=== PATIENT | male | born 1940 | race Caucasian/White ===

== ENCOUNTER 2024-07-19 18:36 | Inpatient (IN) | payer MEDICARE, MEDICAID ==
[~2024-07-19] VITALS: Ht 167.6 cm; Wt 80.2 kg
[2024-07-19 19:25] VITALS: PULSE 112; RESP 20; O2SAT 100
[2024-07-19] MEDS: ONDANSETRON HCL 4 MG/2 ML VIAL IV ONE (19:47)
[2024-07-19] MEDS: ACETAMINOPHEN 325 MG TAB PO ONE (19:47)
[2024-07-19] MEDS: VANCOMYCIN 1GM/250ML KIT 200 ML IV ONE (19:48)
[2024-07-19] MEDS: SODIUM CHLORIDE 0.9% 1,000 ML IV ONE ×2 (19:48→20:45)
[2024-07-19 20:01] LABS: Hematocrit 31.2 % (41.0-53.0); Hemoglobin 10.4 g/dL (13.5-17.5); Mean Corpuscular Hgb Conc. 33.4 g/dL (32.0-36.0); Mean Corpuscular Volume 92.7 fL (80.0-100.0); Platelet Count (auto) 372 10^3/uL (140-450); Red Blood Cells 3.36 10^6/uL (4.5-5.90); Red Cell Distribution Width 16.4 % (11.8-14.3); White Blood Cell 15.1 10^3/uL (4.4-10.8)
--- NOTE | 2024-07-19 20:05 | ED.PDOC ---
SOB-HPI HPI Comments 89 year old male came to ER via EMS for shortness of breath. Patient was picked up at home, has history of hypertension, diabetes, CVA, and COPD. Was noted to be short of breath for the past hour. Upon arrival paramedics noted to be saturating at 83% on room air., febrile at 101.6 F, and hypotensive at 85/39 mm Hg. Chief Complaint: Shortness of Breath Time Seen by MD: 20:04 Reviewed notes: Nurses Notes Information Source: Patient Mode of Arrival: EMS Severity: Moderate Timing: Hours Duration: Since onset Context: At Rest PE Risk Factors: None History of: COPD Prehospital treatment: Breathing Tx, Oxygen Modifying Factors: Nothing Associated Signs and Symptoms: Fever, Cough Past Medical History PAST MEDICAL HISTORY: COPD, CVA, DM, HTN Surgical History: Denies all surgeries Family History Family History: Reviewed,noncontributory to illness Social History Smoker: Non-Smoker Alcohol: Denies ETOH Use Drugs: Denies Drug Use Lives In: Home Constitutional: denies: chills, diaphoresis, fatigue, fever, malaise, sweats, weakness, others EENTM: denies: blurred vision, double vision, ear bleeding, ear discharge, ear drainage, ear pain, ear ringing, eye pain, eye redness, hearing loss, mouth pain, mouth swelling, nasal discharge, nose bleeding, nose congestion, nose pain, photophobia, tearing, throat pain, throat swelling, voice changes, others Respiratory: reports: shortness of breath; denies: cough, hemoptysis, orthopnea, SOB with excertion, stridor, wheezing, others Cardiovascular: denies: chest pain, dizzy spells, diaphoresis, Dyspnea on exertion, edema, irregular heart beat, left arm pain, lightheadedness, palpitations, PND, syncope, others Gastrointestinal: denies: abdomen distended, abdominal pain, blood streaked bowels, constipated, diarrhea, dysphagia, difficulty swallowing, hematemesis, melena, nausea, poor appetite, poor fluid intake, rectal bleeding, rectal pain, vomiting, others Genitourinary: denies: burning, dysuria, flank pain, frequency, hematuria, incontinence, penile discharge, penile sore, pain, testicle pain, testicle swelling, urgency, others Neurological: denies: dizziness, fainting, headache, left sided numbness, left sided weakness, numbness, paresthesia, pre-existing deficit, right sided numbness, right sided weakness, seizure, speech problems, tingling, tremors, weakness, others Musculoskeletal: denies: back pain, gout, joint pain, joint swelling, muscle pain, muscle stiffness, neck pain, others Integumetry: denies: bruises, change in color, change in hair/nails, dryness, laceration, lesions, lumps, rash, wounds, others Allergic/Immunocompromised: denies: Difficulty Healing, Frequent Infections, Hives, Itching, others Hematologic/Lymphatic: denies: anemia, blood clots, easy bleeding, easy bruising, swollen glands, others Endocrine: denies: excessive hunger, excessive sweating, excessive thirst, excessive urination, flushing, intolerance to cold, intolerance to heat, unexplained weight gain, unexplained weight loss, others Psychiatric: denies: anxiety, bipolar disorder, depression, hopeless, panic disorder, schizophrenia, sleepless, suicidal, others Physical Exam General Appearance: Mild Distress HEENT: Normal ENT Inspection, Pharynx Normal, TMs Normal Neck: Full Range of Motion, Non-Tender, Normal, Normal Inspection Respiratory: Chest Non-Tender, Decreased Breath Sounds, No Accessory Muscle Use, No Respiratory Distress Cardiovascular: No Edema, No JVD, No Murmur, No Gallop, Normal Peripheral Pulses, Regular Rate/Rhythm Breast Exam: Deferred Gastrointestinal: No Organomegaly, Non Tender, No Pulsatile Mass, Normal Bowel Sounds, Soft Genitalia: Deferred Pelvic: Deferred Rectal: Deferred Extremities: No calf tenderness, Normal capillary refill, Normal inspection, Normal range of motion, Non-tender, No pedal edema Musculoskeletal : Apperance: Normal Neurologic: Alert, tugboat operator II-XII nml as Tested, No Motor Deficits, Normal Affect, Normal Mood, No Sensory Deficits Cerebellar Function: Normal Reflexes: Normal Skin: Dry, Normal Color, Warm Lymphatic: No Adenopathy Was a procedure done? Was a procedure done?: No Differential Dx Differential Diagnosis: Asthma, Bronchitis, CHF, COPD, Myocardial infarction, Pneumonia, Respiratory Distress, URI X-Ray, Labs, Meds, VS Vital Signs Date Time Temp Pulse Resp B/P (MAP) Pulse Ox O2 Delivery O2 Flow Rate FiO2 07/19/24 19:47 101.6 07/19/24 19:25 101.6 112 20 85/39 (54) 100 101.6 07/19/24 18:48 98.8 120 34 122/68 (86) 96 07/19/24 18:40 123 Lab Test 07/19/24 19:46 Range/Units White Blood Count 15.1 H 4.4-10.8 10^3/uL Red Blood Count 3.36 L 4.5-5.90 10^6/uL Hemoglobin 10.4 L 13.5-17.5 g/dL Hematocrit 31.2 L 41.0-53.0 % Mean Corpuscular Volume 92.7 80.0-100.0 fL Mean Corpuscular Hemoglobin 31.0 28.0-32.0 pg Mean Corpuscular Hemoglobin Concent 33.4 32.0-36.0 g/dL Red Cell Distribution Width 16.4 H 11.8-14.3 % Platelet Count 372 140-450 10^3/uL Mean Platelet Volume 8.5 6.9-10.8 fL Neutrophils (%) (Auto) 37.0-80.0 % Lymphocytes (%) (Auto) 10.0-50.0 % Monocytes (%) (Auto) 0.0-12.0 % Basophils (%) (Auto) 0.0-2.0 % Neutrophils # (Auto) 1.6-8.6 10 ^3/uL Lymphocytes # (Auto) 0.4-5.4 10 ^3/uL Monocytes # (Auto) 0-1.3 10 ^3/uL Differential Total Cells Counted Pending Neutrophils % (Manual) Pending Band Neutrophils % (Manual) Pending Lymphocytes % (Manual) Pending Monocytes % (Manual) Pending Eosinophils % (Manual) Pending Basophils % (Manual) Pending Metamyelocytes % (manual) Pending Myelocytes % (Manual) Pending Promyelocytes % (Manual) Pending Blast Cells % (Manual) Pending Reactive Lymphocytes Pending Platelet Estimate Pending Sodium Level 140 136-145 mmol/L Potassium Level 4.2 3.5-5.1 mmol/L Chloride Level 104 98-107 mmol/L Carbon Dioxide Level 30 20-31 mmol/L Anion Gap 6 5-15 Blood Urea Nitrogen 33 H 9-23 mg/dL Creatinine 1.79 H 0.700-1.30 mg/dL Glomerular Filtration Rate Calc 33 >90 mL/min BUN/Creatinine Ratio 18.4 10.0-20.0 Serum Glucose 126 H 74-106 mg/dL Lactic Acid Level Pending Calcium Level 9.2 8.7-10.4 mg/dL Total Bilirubin 0.5 0.2-1.0 mg/dL Aspartate Amino Transferase (AST) 34 13-40 U/L Alanine Aminotransferase (ALT) 30 7-40 U/L Alkaline Phosphatase 114 46-116 U/L Total Protein 6.5 5.7-8.2 g/dL Albumin 3.6 3.2-4.8 g/dL Current Medications Medications (Trade) Dose Ordered Sig/Alo Route Start Time Stop Time Status Last Admin Sodium Chloride 1,000 ml @ 1,000 mls/hr Q1H ONCE IV 07/19/24 19:30 07/19/24 20:29 DC 07/19/24 19:48 Vancomycin HCl 200 ml @ 200 mls/hr ONCE ONCE IV 07/19/24 19:30 07/19/24 20:29 DC 07/19/24 19:48 Ondansetron HCl (Zofran) 4 mg ONCE ONCE IV 07/19/24 19:30 07/19/24 19:31 DC 07/19/24 19:47 Acetaminophen (Tylenol Tablet) 650 mg ONCE ONCE PO 07/19/24 19:30 07/19/24 19:31 DC 07/19/24 19:47 Time of 1ST Reevaluation: 20:34 Reevaluation 1ST: Improved Patient Education/Counseling: Diagnosis, Treatment Family Education/Counseling: No Family Present Departure 1 Departure Time of Disposition: 20:35 (Patient with symptoms concerning for sepsis, pneumonia. We will empirically cover patient with antibiotics fluids and admit patient for further workup. We will give less than 30 cc/kg bolus the patient out of concern for possible volume overload) Impression: Primary Impression: Sepsis Qualified Codes: A41.9 - Sepsis, unspecified organism; R65.21 - Severe sepsis with septic shock; G72.81 - Critical illness myopathy Additional Impression: Pneumonia Qualified Codes: J18.9 - Pneumonia, unspecified organism Disposition: ADMITTED INPATIENT Admit to: Med Surg Condition: Guarded Critical Care Note Critical Care Time?: Yes Critical care comment: Hypotension Authorized and Performed by: Cici Bone MD Total critical care time: Approximately 38 minutes Due to a high probability of clinically significant, life threatening deterioration, the patient required my highest level of preparedness to intervene emergently and I personally spent this critical care time directly and personally managing the patient. This critical care time included obtaining a history; examining the patient; pulse oximetry; ordering and review of studies; arranging urgent treatment with development of a management plan; evaluation of patient's response to treatment; frequent reassessment; and, discussions with other providers. This critical care time was performed to assess and manage the high probability of imminent, life-threatening deterioration that could result in multi-organ failure. It was exclusive of separately billable procedures and treating other patients and teaching time. Please see my other sections and the rest of the note for further information on patient assessment and treatment. Stability Stability form required: No Heart Score Heart Score: Heart Score Response (Comments) Value History Highly Suspicious 2 EKG Repolarization Disturb 1 Age >65 2 Risk Factors >3 or Hx ASHD 2 Troponin Normal limit 0 Total 7 I personally scribed for CICI BONE MD ([email or web address]) on 07/19/24 at 20:04. Electronically submitted by David Kelly ([email or web address]). CICI BONE MD Jul 19, 2024 20:04
--- NOTE | 2024-07-19 20:09 | DVH ---
EXAMINATION: AP portable chest radiograph CLINICAL HISTORY: fever COMPARISON: None FINDINGS: Lead wires overlie the thorax. Diffuse interstitial opacities. Blunting of the left costophrenic angle. No definite pneumothorax. T he cardiomediastinal silhouette appears within normal limits given technique. IMPRESSION: Diffuse interstitial opacities which can be seen with edema as well as atypical/viral infection. Plea se correlate clinically. Possible small left pleural effusion.
[2024-07-19 20:13] LABS: Basophils % (manual) 0 (0.0-2.0); Blast Cells 0; Eosinophils % (manual) 0 (0-7); Metamyelocytes % 0; Myelocytes % 0; Promyelocytes % 0; Reactive Lymphocytes 0
[2024-07-19 20:19] LABS: Alanine Aminotransferase 30 U/L (7-40); Albumin 3.6 g/dL (3.2-4.8); Alkaline Phosphatase 114 U/L (46-116); Anion Gap 6 (5-15); Aspartate Aminotransferase 34 U/L (13-40); BUN/Creatinine Ratio 18.4 (10.0-20.0); Bilirubin, Total 0.5 mg/dL (0.2-1.0); Blood Urea Nitrogen 33 mg/dL (9-23); Calcium 9.2 mg/dL (8.7-10.4); Carbon Dioxide 30 mmol/L (20-31); Chloride 104 mmol/L (98-107); Glucose 126 mg/dL (74-106); Potassium 4.2 mmol/L (3.5-5.1); Sodium 140 mmol/L (136-145); Total Protein 6.5 g/dL (5.7-8.2)
[2024-07-19 20:42] LABS: Lactic Acid w/Reflex 2.3 mmol/L (0.4-2.0)
[2024-07-19] MEDS: CEFEPIME 2GM/50ML NS 50 ML IV ONE (21:11)
[2024-07-19] MEDS ORDERED: ACETAMINOPHEN 325 MG TAB PO PRN (21:45)
[2024-07-19] MEDS ORDERED: NITROGLYCERIN 0.4 MG SL TAB SL PRN (21:45)
[2024-07-19] MEDS ORDERED: MORPHINE SULFATE INJ 2 MG/ml SYRG IV PRN (21:45)
[2024-07-19] MEDS ORDERED: DEXTROSE (50%) 50ML SYRG IV PRN (21:45)
[2024-07-19] MEDS ORDERED: ONDANSETRON HCL 4 MG/2 ML VIAL IV PRN (21:45)
[2024-07-19 21:50] LABS: Anisocytosis Slight; Band Neutrophils % (manual) 26; Large Platelets FEW; Lymphocytes % (manual) 7 (10.0-50.0); Monocytes % (manual) 8 (0-12); Platelet Estimate Adequate
[2024-07-19] MEDS: SODIUM CHLOR 0.9% PF (SALINE LOCK) 10ML VIAL/SYR IV SCH (22:00)
--- NOTE | 2024-07-19 22:02 | DVHHP2 ---
History of Present Illness Reason for Visit: Pneumonia, unspecified organisms History of Present Illness The patient is a 84-year-old male with past medical history of COPD, CVA, hypertension, thyroid disease, HLD, and DM who presented to [facility] ED with complaint of shortness of breaths. As reported, patient was picked up at home with increased difficulty breathing, O2 saturation at 83% on room, and was placed on oxygen en route facility ED. patient was seen and evaluated in the ED, laboratory data shows elevated WBC 15.1, platelets 372, sodium 140, potassium 4.2, BUN 33, creatinine 1.79, glucose 126, lactic acid 2.3, blood pressure 92/43, heart rate 110, temperature 101.6 F trending down to 99.9 F. chest x-ray revealing diffuse interstitial opacities which can be seen with edema as well as atypical/viral infection, possible small left pleural effusion. Patient was started on IV antibiotic regimen vancomycin, please see medication orders section in the computer. On my assessment, patient denies chest pain, no headache, no dizziness, no diaphoresis, currently on oxygen, no nausea, no vomiting, no chills. Patient was admitted evaluation and medical management. Past Medical History COPD, CVA, DM, HTN, thyroid disease, HLD. Past Surgical History Denies all surgeries Family History Reviewed, noncontributory to the management of this case. Past Social History The patient lives at home, denies smoking, alcohol or illicit drugs abuse. Review of Systems Constitutional: Yes: Weakness; No: Fever, Chills, Sweats, Malaise, Other Eyes: No: Pain, Vision change, Conjunctivae inflammation, Eyelid inflammation, Other, Redness ENT: No: Ear pain, Ear discharge, Nose pain, Nose discharge, Nose congestion, Mouth pain, Mouth swelling, Throat pain, Throat swelling, Other Respiratory: Shortness of breath; No: Cough, Dry, SOB with excertion, Wheezing, Hemoptysis, Pleuritic Pain, Sputum, Wheezing, Other Cardiovascular: No: Chest Pain, Palpitations, Orthopnea, Paroxysmal Noc. Dyspne a, Edema, Lt Headedness, Other Gastrointestinal: No: Nausea, Vomiting, Abdominal Pain, Diarrhea, Constipation, Melena, Hematochezia, Other Genitourinary: No Dysuria, No Frequency, No Incontinence, No Hematuria, No Retention, No Other Musculoskeletal: No: other, neck pain, shoulder pain, arm pain, back pain, hand pain, leg pain, foot pain Skin: No: Rash, Lesions, Jaundice, Bruising, Other Neurological: No: Weakness, Numbness, Incoordination, Change in speech, Confusion, Seizures, Other Exam Vital Signs Vital Signs Date Time Temp Pulse Resp B/P (MAP) Pulse Ox O2 Delivery O2 Flow Rate FiO2 07/19/24 20:47 100.3 07/19/24 20:00 110 07/19/24 19:25 20 100 Nasal Cannula* 3 32 07/19/24 19:25 85/39 (54) General Appearance: Alert, Oriented X3, Cooperative, No acute distress HEENT: Atraumatic, PERRLA, EOMI, Mucous membr. moist/pink Respiratory: Clear to auscultation, Normal air movement Cardiovascular: Regular rate, Normal S1, Normal S2, No murmurs Abdominal: Normal bowel sounds, Soft, No tenderness, No hepatospenomegaly, No masses Extremities: No clubbing, No cyanosis, No edema, Normal pulses, No tenderness/swelling Skin: No rashes, No breakdown, No significant lesion Neuro: Normal speech, Normal tone, Sensation intact, Cranial nerves 3-12 NL, Reflexes 2+ Psych/Mental Status: Mental status NL, Mood NL Labs/Xrays Labs Test 07/19/24 21:33 07/19/24 21:30 07/19/24 21:02 07/19/24 19:46 Range/Units POC Glucose 104 70-106 mg/dl White Blood Count 15.1 H 4.4-10.8 10^3/uL Red Blood Count 3.36 L 4.5-5.90 10^6/uL Hemoglobin 10.4 L 13.5-17.5 g/dL Hematocrit 31.2 L 41.0-53.0 % Mean Corpuscular Volume 92.7 80.0-100.0 fL Mean Corpuscular Hemoglobin 31.0 28.0-32.0 pg Mean Corpuscular Hemoglobin Concent 33.4 32.0-36.0 g/dL Red Cell Distribution Width 16.4 H 11.8-14.3 % Platelet Count 372 140-450 10^3/uL Mean Platelet Volume 8.5 6.9-10.8 fL Neutrophils (%) (Auto) 37.0-80.0 % Lymphocytes (%) (Auto) 10.0-50.0 % Monocytes (%) (Auto) 0.0-12.0 % Basophils (%) (Auto) 0.0-2.0 % Neutrophils # (Auto) 1.6-8.6 10 ^3/uL Lymphocytes # (Auto) 0.4-5.4 10 ^3/uL Monocytes # (Auto) 0-1.3 10 ^3/uL Differential Total Cells Counted 99.0 100 Neutrophils % (Manual) 58 37.0-80.0 Band Neutrophils % (Manual) 26 Lymphocytes % (Manual) 7 L 10.0-50.0 Monocytes % (Manual) 8 0-12 Eosinophils % (Manual) 0 0-7 Basophils % (Manual) 0 0.0-2.0 Metamyelocytes % (manual) 0 Myelocytes % (Manual) 0 Promyelocytes % (Manual) 0 Blast Cells % (Manual) 0 Reactive Lymphocytes 0 Platelet Estimate Adequate Large Platelets Few Anisocytosis (manual) Slight Sodium Level 140 136-145 mmol/L Potassium Level 4.2 3.5-5.1 mmol/L Chloride Level 104 98-107 mmol/L Carbon Dioxide Level 30 20-31 mmol/L Anion Gap 6 5-15 Blood Urea Nitrogen 33 H 9-23 mg/dL Creatinine 1.79 H 0.700-1.30 mg/dL Glomerular Filtration Rate Calc 33 >90 mL/min BUN/Creatinine Ratio 18.4 10.0-20.0 Serum Glucose 126 H 74-106 mg/dL Calcium Level 9.2 8.7-10.4 mg/dL Total Bilirubin 0.5 0.2-1.0 mg/dL Aspartate Amino Transferase (AST) 34 13-40 U/L Alanine Aminotransferase (ALT) 30 7-40 U/L Alkaline Phosphatase 114 46-116 U/L Total Protein 6.5 5.7-8.2 g/dL Albumin 3.6 3.2-4.8 g/dL PATIENT: RAYNE SUAREZ ACCT: [id number] UNIT: [id number] : 06/26/1923 LOC: ER ROOM / BED: / AGE / SEX: 89 / M ADM STATUS: REG ER SERVICE 26 ORDERING PHYSICIAN: CICI MONTEZ MD PROCEDURE(s): CXRP - CHEST PORTABLE REASON: fever ORDER NUMBER(s): [id number], ACCESSION NUMBER(s): [id number] EXAMINATION: AP portable chest radiograph CLINICAL HISTORY: fever COMPARISON: None FINDINGS: Lead wires overlie the thorax. Diffuse interstitial opacities. Blunting of the left costophrenic angle. No definite pneumothorax. The cardiomediastinal silhouette appears within normal limits given technique. IMPRESSION: Diffuse interstitial opacities which can be seen with edema as well as atypical/viral infection. Please correlate clinically. Possible small left pleural effusion. Assessment/Plan Assessment/Plan COPD with acute exacerbation Sepsis, unspecified organism Generalized weakness Severe sepsis with septic shock Pneumonia, unspecified organism Plan 1. Admit to telemetry unit 2. Breathing treatment 3. Pain control management 4. IV antibiotic management 5. Management of fluids and electrolytes 6. Consultation for hospitalist 7. Diagnostic test chest x-ray 8. DVT prophylaxis-on SCDs 9. Repeat labs CBC, CMP in a.m. 10. Home medication reviewed and reconciled 11. Continue with current medical management 12. Treatment plan discussed with patient and RN. Patient verbalized understanding. Plan discussed with: Patient, Other (RN) My Orders Orders - ADELINA SINGH DNP Procedure Category Date Status Time Consistent DIET 07/20/24 Transmitted Carb(Ccho)Diabetes Breakfast Levothyroxine Tablet PHA 07/20/24 Transmitted (Synthroid Tablet) 06:00 Doxycycline PHA 07/19/24 Transmitted 100mg/250ml 21:45 Ceftriaxone Ivpb PHA 07/20/24 Transmitted Rocephin 09:00 Atorvastatin (Lipitor) PHA 07/19/24 Transmitted 22:00 Thyroid Stimulating LAB 07/19/24 Transmitted Hormone 21:43 Glucose Blood PHA 07/19/24 Transmitted (Accu-Chek Comfort 22:00 Mild Sliding Scale PHA 07/19/24 Transmitted 22:00 Dextrose 50% Syringe PHA 07/19/24 Transmitted 21:45 Admit ADMIT 07/19/24 Transmitted 21:43 Allergies PAMELA 07/19/24 Transmitted 21:43 Code Status CODE 07/19/24 Transmitted 21:43 Sodium Chloride Lock PHA 07/19/24 Transmitted (Saline Lock Ns) 22:00 Oxygen Per Hour RT 07/19/24 Transmitted 21:43 Hydrocodone-Acet PHA 07/19/24 Transmitted 5/325mg Tab ([place] 21:45 Ondansetron Hcl PHA 07/19/24 Transmitted (Zofran) 21:45 Docusate Sodium [facility] 07/19/24 Transmitted Capsule (Colace 21:45 Fall Risk Precautions [facility] 07/19/[address] 21:43 Complete Blood Count LAB 07/20/24 Verified 04:00 Comprehensive LAB 07/20/24 Verified Metabolic Panel 04:00 Condition: Serious [facility] 07/19/24 Transmitted 21:43 Acetaminophen Tablet [facility] 07/19/24 Transmitted (Tylenol Tablet) 21:45 Sequential [facility] 07/19/24 Transmitted Compression Device Nitroglycerin [facility] 07/19/24 Transmitted Sublingual (Ntrostat 21:45 Morphine Sulfate [facility] 07/19/24 Transmitted Injection 21:45 Notify Of Changes [facility] 07/19/24 Transmitted From Base 21:43 Head Stock Transfer Clerk For [facility] 07/19/24 Transmitted 24 Hours 21:43 Emergency Dysrhythmia [facility] 07/19/24 Transmitted Protocol 21:43 Rhythm Strips Once [facility] 07/19/24 Transmitted Every Shift 21:43 Oxygen By Nasal RT 07/19/24 Transmitted Cannula 21:43 Problem List: (1) COPD with acute exacerbation (2) Pneumonia, unspecified organism (3) Generalized weakness (4) Sepsis, unspecified organism (5) Severe sepsis with septic shock Date of Service: Jul 19, 2024 Billing Provider: ADELINA SINGH DNP Common Visit Codes: 58464-EVHYFOG INP/OBS CARE (HIGH) ADELINA SINGH DNP Jul 19, 2024 22:02
[2024-07-19 22:29] LABS: Rapid Influenza A Negative (Negative); Rapid Influenza B Negative (Negative)
[2024-07-19 22:30] LABS: COVID19 ANTIGEN SOFIA FIA NEGATIVE (NEGATIVE)
[2024-07-20] MEDS: ACCU-CHEK COMFORT CURVE STRIP VI SCH (00:25)
[2024-07-20] MEDS: InsuLIN REG 1unit/0.01ml Soln (100units/ml) SC SCH (00:25)
[2024-07-20] MEDS: ATORVASTATIN 20 MG TAB PO SCH (00:27)
[2024-07-20] MEDS: DOXYCYCLINE 100MG/250ML 250 ML IV SCH (00:33)
[2024-07-20 02:00] VITALS: BP 104/54; PULSE 81; RESP 18; TEMP 99.9; O2SAT 96
[2024-07-20 03:45] VITALS: BP 104/54; PULSE 81; RESP 18; TEMP 99.9; O2SAT 96
[2024-07-20 05:00] VITALS: BP 102/53; PULSE 80; RESP 18; TEMP 99.8; O2SAT 97
[2024-07-20] MEDS: LEVOTHYROXINE SODIUM 100 MCG TAB PO SCH (05:53)
[2024-07-20] MEDS: HYDROcodone-ACET 5/325MG TAB PO PRN (06:23)
[2024-07-20 07:08] LABS: Basophils # (auto) 0 10 ^3/uL (0-0.2); Basophils % (auto) 0.2 % (0.0-2.0); Eosinophils # (auto) 0.3 10 ^3/uL (0-0.8); Eosinophils % (auto) 1.6 % (0.0-7.0); Hematocrit 27.4 % (41.0-53.0); Hemoglobin 8.8 g/dL (13.5-17.5); Lymphocytes # (auto) 1.7 10 ^3/uL (0.4-5.4); Lymphocytes % (auto) 8.3 % (10.0-50.0); Mean Corpuscular Hemoglobin 29.9 pg (28.0-32.0); Mean Corpuscular Hgb Conc. 32.1 g/dL (32.0-36.0); Mean Corpuscular Volume 93.1 fL (80.0-100.0); Monocytes # (auto) 1.1 10 ^3/uL (0-1.3); Monocytes % (auto) 5.2 % (0.0-12.0); Neutrophils # (auto) 17.5 10 ^3/uL (1.6-8.6); Neutrophils % (auto) 84.7 % (37.0-80.0); Platelet Count (auto) 334 10^3/uL (140-450); Red Blood Cells 2.94 10^6/uL (4.5-5.90); Red Cell Distribution Width 16.5 % (11.8-14.3); White Blood Cell 20.6 10^3/uL (4.4-10.8)
[2024-07-20 07:11] LABS: Alanine Aminotransferase 26 U/L (7-40); Albumin 2.9 g/dL (3.2-4.8); Alkaline Phosphatase 87 U/L (46-116); Anion Gap 5 (5-15); Aspartate Aminotransferase 43 U/L (13-40); BUN/Creatinine Ratio 23.7 (10.0-20.0); Bilirubin, Total 0.6 mg/dL (0.2-1.0); Blood Urea Nitrogen 33 mg/dL (9-23); Calcium 8.4 mg/dL (8.7-10.4); Carbon Dioxide 27 mmol/L (20-31); Chloride 109 mmol/L (98-107); Glucose 89 mg/dL (74-106); Potassium 4.6 mmol/L (3.5-5.1); Sodium 141 mmol/L (136-145); Total Protein 5.3 g/dL (5.7-8.2)
[2024-07-20 08:00] VITALS: PULSE 81; PULSE 85; RESP 18; O2SAT 99
[2024-07-20] MEDS ORDERED: cefTRIAXone 1GM/50ML D5W 50 ML IV SCH (09:00)
[2024-07-20] MEDS ORDERED: VANCOMYCIN PER PHARMACY 0 MG IV SCH (09:15)
--- NOTE | 2024-07-20 10:01 | ECG ---
[facility] Test Date: 2024-07-19 Test Time: 18:40:05 Pat Name: RAYNE SUAREZ Department: ED Room: 0233T Gender: M Radio Repairer: LENIN : 1940 Requested By: CICI MONTEZ Order Number: [id number] Reading MD: Gonzalo David Measurements Intervals Berry Rate: 123 P: 77 VT: 169 QRS: -14 QRSD: 80 T: 56 QT: 310 QTc: 444 Interpretive Statements Sinus tachycardia Nonspecific T abnrm, anterolateral leads Baseline wander in lead(s) V3 Electronically Signed On 08-02-2024 11:19:21 PST by Gonzalo David Please click the below link to view image of tracing.
[2024-07-20] MEDS: PIPERACILLIN-TAZOB 3.375GM 100 ML IV ONE (10:46)
--- NOTE | 2024-07-20 14:57 | DVHPN2 ---
Subjective Confused; shortness of breath Reviewed: Care Plan, H&P, Labs, Medications, Previous Orders, Radiology Changes from previous H/P or p: No Changes Objective Vitals Vital Signs Date Time Temp Pulse Resp B/P (MAP) Pulse Ox O2 Delivery O2 Flow Rate FiO2 07/20/24 08:00 81 18 99 Nasal Cannula* 3 32 07/20/24 05:00 99.8 102/53 (69) 99.8 Intake/Output Intake and Output 07/20/24 07:00 Intake Total 2500 ml Balance 2500 ml Intake Oral 0 ml IV Total 2500 ml General Appearance: Other (Confused) HEENT: Atraumatic, Other (No eyelashes) Lungs: Other (Decreased air entry bilateral) Cardiovascular: Regular rate, Normal S1, Normal S2 Abdomen: Normal bowel sounds, Soft, No tenderness Neuro: Other (Left-sided weakness; the patient did not cooperate; unclear if he has dysarthria or not) Skin: Other (Stage II sacral decubitus ulcer; dressed lesions on left upper extremity; multiple bruises) Psych/Mental Status: Other (Confused) Medications Current Medications Medications Dose Ordered Sig/Alo Route Start Time Stop Time Status Last Admin Dose Admin Levothyroxine Sodium 100 mcg QAM@0600 PO 07/20/24 06:00 07/20/24 05:53 100 MCG Atorvastatin Calcium 20 mg HS PO 07/19/24 22:00 07/20/24 00:27 20 MG Diagnostic Test (Pha) 1 strip ACHS 07/19/24 22:00 07/20/24 05:54 1 STRIP Insulin Human Regular ACHS SC 07/19/24 22:00 Dextrose 50 ml UD PRN IV 07/19/24 21:45 Sodium Chloride 10 ml Q8HR IV 07/19/24 22:00 07/20/24 05:54 10 ML Acetaminophen/ Hydrocodone Bitart 1 tab Q4HP PRN PO 07/19/24 21:45 07/20/24 06:23 1 TAB Ondansetron HCl 4 mg Q4HP PRN IV 07/19/24 21:45 Docusate Sodium 100 mg BIDPRN PRN PO 07/19/24 21:45 Acetaminophen 500 mg Q6HP PRN PO 07/19/24 21:45 Nitroglycerin 0.4 mg Q5MINP PRN SL 07/19/24 21:45 Morphine Sulfate 2 mg Q30M PRN IV 07/19/24 21:45 Vancomycin HCl 0 ml @ 0 mls/hr UD IV 07/20/24 09:15 Piperacillin Sod/ Tazobactam Sod 100 ml @ 25 mls/hr Q8H IV 07/20/24 18:00 Vancomycin HCl 200 ml @ 200 mls/hr Q20H IV 07/20/24 15:00 Laboratory Results Laboratory Tests 07/20/24 06:30 Chemistry Test 07/19/24 19:46 07/20/24 06:30 Albumin 3.6 g/dL (3.2-4.8) 2.9 g/dL (3.2-4.8) L Calcium Level 9.2 mg/dL (8.7-10.4) 8.4 mg/dL (8.7-10.4) L Total Protein 6.5 g/dL (5.7-8.2) 5.3 g/dL (5.7-8.2) L LFT Test 07/19/24 19:46 07/20/24 06:30 Alanine Aminotransferase (ALT) 30 U/L (7-40) 26 U/L (7-40) Alkaline Phosphatase 114 U/L (46-116) 87 U/L (46-116) Aspartate Amino Transferase (AST) 34 U/L (13-40) 43 U/L (13-40) H Total Bilirubin 0.5 mg/dL (0.2-1.0) 0.6 mg/dL (0.2-1.0) HgA1c, TSH Test 07/19/24 19:46 Thyroid Stimulating Hormone (TSH) 5.22 uIU/mL (0.55-4.78) H Labs and/or images reviewed: Labs reviewed by me, Image(s) reviewed by me Assessment/Plan Assessment/Plan An 84-year-old male patient; with multiple comorbidities; who presented to the emergency department with altered mental status, and shortness of breath. #Fever and shortness of breath due to suspected aspiration pneumonia versus hospital-acquired pneumonia #Acute hypoxic respiratory failure due to COPD exacerbation secondary to suspected aspiration pneumonia versus hospital-acquired pneumonia; confused #Acute metabolic encephalopathy in the setting of sepsis #Fluid-responsive septic shock due to suspected aspiration pneumonia versus hospital-acquired pneumonia and suspected wound infection #Lactic acidosis due to fluid-responsive septic shock #Leukocytosis due to fluid-responsive septic shock #ELIZABET; most likely vasomotor nephropathy; due to fluid-responsive septic shock #Elevated LFTs due to fluid-responsive septic shock Ordered CT head without contrast Reviewed labs and chest x-ray Ordered urinalysis and urine culture Changed antibiotics to IV vancomycin and IV Zosyn Continue IV fluids Continue oxygen therapy as needed Wound care onboard Blood cultures pending One-to-one sitter Avoid nephrotoxic agents Avoid hepatotoxic agents Continue monitoring #Hypothyroidism Continue levothyroxine Reviewed TSH result Continue monitoring #CVA with left side weakness #Dyslipidemia Started aspirin Continue statin Fall precautions Continue monitoring #Multiple ulcers including sacral decubitus ulcer Wound care onboard Wound culture pending Goals of care discussed for 20 minutes with the patient's nephew (caregiver); full code for now; wants to discuss hospice care; consulted [facility] for possible home hospice 101 minutes of critical care time This medical document was created using an electronic medical record system with computerized dictation system. Although this document has been carefully reviewed, there might still be some phonetic and typographical errors. These areas are purely typographical due to imperfections of the software programs, and do not reflect any compromise in the patient's medical care. Plan discussed with: Other (The patient's nephew (caregiver); nurse) My Orders Orders - FERMÍN PASTOR MD Procedure Category Date Status Time Complete Blood Count LAB 07/21/24 Verified 04:00 Comprehensive LAB 07/21/24 Verified Metabolic Panel 04:00 Vancomycin Per PHA 07/20/24 In Process Pharmacy 09:15 Piperacillin-Tazob PHA 07/20/24 In Process 3.375gm (Zosyn 3.375g 18:00 Vancomycin 1gm/200ml PHA 07/20/24 In Process [facility] 15:00 Vancomycin,Trough LAB 07/22/24 Verified 06:00 Vancomycin Per PAMELA 07/22/24 In Process Pharmacy Protoc 07:00 Creatinine LAB 07/22/24 Verified 06:00 Date of Service: Jul 20, 2024 Billing Provider: FERMÍN PASTOR MD Common Visit Codes: [id number] CARE 30-74 MIN (101 minutes), [id number] CARE-EACH +30MIN Secondary Visit Codes: [id number] CARE PLAN 30 MINUTES (20 minutes) FERMÍN PASTOR MD Jul 20, 2024 14:57
[2024-07-20] MEDS: ASPirin 81 mg TAB PO ONE (15:00)
[2024-07-20] MEDS: SODIUM CHLORIDE 0.9% 1,000 ML IV SCH (15:00)
[2024-07-20] MEDS: VANCOMYCIN 1GM/250ML KIT 200 ML IV SCH (15:00)
--- NOTE | 2024-07-20 15:20 | DVH ---
EXAM: CT HEAD WITHOUT CONTRAST INDICATION: Confusion; history of CVA. Thank You! TECHNIQUE: CT of the head without intravenous contrast. Radiation dose : Head: CT Dose: CTDI volume is 60 mGy. Dose-length product is 1095.78 mGy*cm The dose indicators for CT are the volume computed tomography (CT) dose index (CTDIvol) and the dose length product (DLP), and are measured in units of mGy and mGy-cm, respectively. These indicators are not patient dose, but values generated from the CT scanner acquisition factors. The report includes radiation exposure data for exposures received during this examination. COMPARISON: None FINDINGS: There is no evidence of acute intracranial hemorrhage, extra-axial collection, mass effect, midline s hift, herniation or hydrocephalus. The ventricles, sulci and cisterns are age appropriate. The tan-white differentiation is intact. Focal hypodensity in the right basal ganglia consistent with old infarct. The visualized paranasal sinuses and mastoid air cells are clear. The surrounding soft tissues and osseous structures are unremarkable. IMPRESSION: 1. No acute intracranial abnormality. Old right basal ganglia infarct. Radiation optimization: All CT scans at this facility use at least one of these dose optimization aldair hniques: Automated exposure control mA and/or kV adjustment per patient size (includes targeted exams where dose is matched to clinical indication) or iterative reconstruction. HS:Y
[2024-07-20] MEDS: PIPERACILLIN-TAZOB 3.375GM 100 ML IV SCH (18:00)
[2024-07-20 20:00] VITALS: PULSE 71; PULSE 81; RESP 18; O2SAT 97
[2024-07-20 21:00] VITALS: BP 91/37; PULSE 70; RESP 18; TEMP 99.1; O2SAT 97
[2024-07-21] VITALS (7 sets, daily range): BP systolic 100–127; BP diastolic 49–60; PULSE 64–94; RESP 16–27; TEMP 97.9–98.1; O2SAT 98–100
[2024-07-21 06:18] LABS: Basophils # (auto) 0 10 ^3/uL (0-0.2); Basophils % (auto) 0.2 % (0.0-2.0); Eosinophils # (auto) 0.5 10 ^3/uL (0-0.8); Eosinophils % (auto) 4.4 % (0.0-7.0); Hematocrit 26.6 % (41.0-53.0); Hemoglobin 8.7 g/dL (13.5-17.5); Lymphocytes # (auto) 1.4 10 ^3/uL (0.4-5.4); Lymphocytes % (auto) 11.1 % (10.0-50.0); Mean Corpuscular Hemoglobin 30.4 pg (28.0-32.0); Mean Corpuscular Hgb Conc. 32.7 g/dL (32.0-36.0); Mean Corpuscular Volume 93.1 fL (80.0-100.0); Monocytes # (auto) 0.9 10 ^3/uL (0-1.3); Monocytes % (auto) 6.9 % (0.0-12.0); Neutrophils # (auto) 9.7 10 ^3/uL (1.6-8.6); Neutrophils % (auto) 77.4 % (37.0-80.0); Platelet Count (auto) 293 10^3/uL (140-450); Red Blood Cells 2.85 10^6/uL (4.5-5.90); Red Cell Distribution Width 16.5 % (11.8-14.3); White Blood Cell 12.5 10^3/uL (4.4-10.8)
[2024-07-21] MEDS: DOCUSATE SOD 100 MG CAP PO PRN (06:18)
[2024-07-21 06:31] LABS: Alanine Aminotransferase 22 U/L (7-40); Alkaline Phosphatase 81 U/L (46-116); Anion Gap 7 (5-15); BUN/Creatinine Ratio 26.5 (10.0-20.0); Blood Urea Nitrogen 36 mg/dL (9-23); Calcium 8.4 mg/dL (8.7-10.4); Carbon Dioxide 26 mmol/L (20-31); Chloride 108 mmol/L (98-107); Glucose 75 mg/dL (74-106); Potassium 4.6 mmol/L (3.5-5.1); Sodium 141 mmol/L (136-145)
[2024-07-21 06:32] LABS: Albumin 2.7 g/dL (3.2-4.8); Aspartate Aminotransferase 35 U/L (13-40)
[2024-07-21 06:33] LABS: Bilirubin, Total 0.5 mg/dL (0.2-1.0); Total Protein 4.6 g/dL (5.7-8.2)
[2024-07-21] MEDS: ASPirin 81 mg TAB PO SCH (10:00)
[2024-07-21 10:39] LABS: Urine Bacteria None Seen /hpf (None Seen)
[2024-07-21 10:54] LABS: Urine Blood 3+ /uL (Negative); Urine Clarity Clear (Clear); Urine Color Yellow (Yellow); Urine Protein, UAD 2+ (Negative); Urine Specific Gravity 1.028 (1.001-1.035); Urine Urobilinogen Normal (Negative); Urine WBC 9 /hpf (0 - 3); Urine pH 5.5 (5.0-9.0)
--- NOTE | 2024-07-21 12:53 | DVHPN2 ---
Reviewed: Care Plan, H&P, Labs, Medications, Previous Orders, Radiology Changes from previous H/P or p: No Changes Objective Vitals Vital Signs Date Time Temp Pulse Resp B/P (MAP) Pulse Ox O2 Delivery O2 Flow Rate FiO2 07/21/24 05:44 98.0 74 18 114/54 (74) 99 98.0 07/20/24 20:00 Nasal Cannula* 3 32 Intake/Output Intake and Output 07/21/24 07:00 Intake Total 1250 ml Output Total 640 ml Balance 610 ml Intake Oral 300 ml IV Total 950 ml Output Urine Total 640 ml General Appearance: Other (Confused) HEENT: Atraumatic, Other (No eyelashes) Lungs: Other (Decreased air entry bilateral) Cardiovascular: Regular rate, Normal S1, Normal S2 Abdomen: Normal bowel sounds, Soft, No tenderness Neuro: Other (Left-sided weakness; the patient did not cooperate; unclear if he has dysarthria or not) Skin: Other (Stage II sacral decubitus ulcer; dressed lesions on left upper extremity; multiple bruises) Psych/Mental Status: Other (Confused) Medications Current Medications Medications Dose Ordered Sig/Alo Route Start Time Stop Time Status Last Admin Dose Admin Levothyroxine Sodium 100 mcg QAM@0600 PO 07/20/24 06:00 07/21/24 05:13 100 MCG Atorvastatin Calcium 20 mg HS PO 07/19/24 22:00 07/20/24 21:41 20 MG Diagnostic Test (Pha) 1 strip ACHS 07/19/24 22:00 07/21/24 05:23 1 STRIP Dextrose 50 ml UD PRN IV 07/19/24 21:45 Sodium Chloride 10 ml Q8HR IV 07/19/24 22:00 07/21/24 05:13 10 ML Acetaminophen/ Hydrocodone Bitart 1 tab Q4HP PRN PO 07/19/24 21:45 07/20/24 17:10 1 TAB Ondansetron HCl 4 mg Q4HP PRN IV 07/19/24 21:45 Docusate Sodium 100 mg BIDPRN PRN PO 07/19/24 21:45 07/21/24 06:18 100 MG Acetaminophen 500 mg Q6HP PRN PO 07/19/24 21:45 Nitroglycerin 0.4 mg Q5MINP PRN SL 07/19/24 21:45 Morphine Sulfate 2 mg Q30M PRN IV 07/19/24 21:45 Vancomycin HCl 0 ml @ 0 mls/hr UD IV 07/20/24 09:15 Piperacillin Sod/ Tazobactam Sod 100 ml @ 25 mls/hr Q8H IV 07/20/24 18:00 07/21/24 10:16 25 MLS/HR Vancomycin HCl 200 ml @ 200 mls/hr Q20H IV 07/20/24 15:00 07/20/24 15:00 200 MLS/HR Aspirin 81 mg DAILY PO 07/21/24 10:00 Sodium Chloride 1,000 ml @ 75 mls/hr [id number] IV 07/20/24 15:00 07/20/24 15:00 75 MLS/HR Laboratory Results Laboratory Tests 07/21/24 05:05 Chemistry Test 07/21/24 05:05 Albumin 2.7 g/dL (3.2-4.8) L Calcium Level 8.4 mg/dL (8.7-10.4) L Total Protein 4.6 g/dL (5.7-8.2) L LFT Test 07/21/24 05:05 Alanine Aminotransferase (ALT) 22 U/L (7-40) Alkaline Phosphatase 81 U/L (46-116) Aspartate Amino Transferase (AST) 35 U/L (13-40) Total Bilirubin 0.5 mg/dL (0.2-1.0) Urinalysis Test 07/20/24 10:20 Urine Color Yellow (Yellow) Urine Clarity Clear (Clear) Urine pH 5.5 (5.0-9.0) Urine Specific [place] 1.028 (1.001-1.035) Urine Protein 2+ (Negative) H Urine Ketones Trace (Negative) Urine Blood 3+ /uL (Negative) H Urine Nitrite Negative (Negative) Urine Bilirubin Negative (Negative) Urine Urobilinogen Normal mg/dL (Negative) Urine Leukocyte Esterase Trace /uL (Negative) Urine RBC 51 /hpf (0 - 3) Urine WBC 9 /hpf (0 - 3) Urine Squamous Epithelial Cells Few /hpf (<5) Urine Bacteria None seen /hpf (None Seen) Urine Glucose Normal mg/dL (Normal) Microbiology Microbiology Date/Time Source Procedure Growth Status 07/20/24 02:45 Arm Left Gram Stain Pending Resulted 07/20/24 02:45 Arm Left Wound Culture - Preliminary Resulted 07/19/24 19:46 Blood Blood Culture - Preliminary NO GROWTH AFTER 24 HOURS OF INCUBATION. Resulted Labs and/or images reviewed: Labs reviewed by me, Image(s) reviewed by me Assessment/Plan Assessment/Plan Septic shock secondary to aspiration pneumonia: Continue vancomycin Zosyn Acute hypoxic respiratory failure Possible aspiration pneumonia Acute COPD exacerbation Acute lactic acidosis ELIZABET Recent hospitalization for three months for pneumonia at [place], discharged home four days ago on home health and the patient was brought back to the ER for sepsis Hypothyroidism History of CVA with left hemiplegia CT head negative Hypercholesterolemia Multiple unstageable decubitus ulcers over the sacrum :wound cultures wound consult Hard of hearing Time spent 65 minutes Advanced care planning time 20 minutes Patient is full code Plan discussed with: Patient Date of Service: Jul 21, 2024 Billing Provider: KATLYN GUTIERREZ MD Common Visit Codes: [id number] CARE 30-74 MIN Secondary Visit Codes: [id number] CARE PLAN 30 MINUTES KATLYN GUTIERREZ MD Jul 21, 2024 12:53
[2024-07-22] VITALS (18 sets, daily range): BP systolic 14–163; BP diastolic 63–74; PULSE 63–91; RESP 16–21; TEMP 97.5–98.7; O2SAT 94–100
--- NOTE | 2024-07-22 11:00 | DVHPN2 ---
Reviewed: Care Plan, H&P, Labs, Medications, Previous Orders, Radiology Changes from previous H/P or p: No Changes Objective Vitals Vital Signs Date Time Temp Pulse Resp B/P (MAP) Pulse Ox O2 Delivery O2 Flow Rate FiO2 07/22/24 05:00 97.9 70 20 129/63 (85) 100 97.9 07/21/24 20:00 Nasal Cannula* 3 32 Intake/Output Intake and Output 07/22/24 07:00 Intake Total 1515 ml Output Total 575 ml Balance 940 ml Intake Oral 490 ml IV Total 1025 ml Output Urine Total 575 ml Stool Total 0 ml General Appearance: Other (Confused) HEENT: Atraumatic, Other (No eyelashes) Lungs: Other (Decreased air entry bilateral) Cardiovascular: Regular rate, Normal S1, Normal S2 Abdomen: Normal bowel sounds, Soft, No tenderness Neuro: Other (Left-sided weakness; the patient did not cooperate; unclear if he has dysarthria or not) Skin: Other (Stage II sacral decubitus ulcer; dressed lesions on left upper extremity; multiple bruises) Psych/Mental Status: Other (Confused) Medications Current Medications Medications Dose Ordered Sig/Alo Route Start Time Stop Time Status Last Admin Dose Admin Levothyroxine Sodium 100 mcg QAM@0600 PO 07/20/24 06:00 07/22/24 05:32 100 MCG Atorvastatin Calcium 20 mg HS PO 07/19/24 22:00 07/21/24 20:59 20 MG Diagnostic Test (Pha) 1 strip ACHS 07/19/24 22:00 07/22/24 06:22 1 STRIP Dextrose 50 ml UD PRN IV 07/19/24 21:45 Sodium Chloride 10 ml Q8HR IV 07/19/24 22:00 07/22/24 05:32 10 ML Acetaminophen/ Hydrocodone Bitart 1 tab Q4HP PRN PO 07/19/24 21:45 07/22/24 02:59 1 TAB Ondansetron HCl 4 mg Q4HP PRN IV 07/19/24 21:45 Docusate Sodium 100 mg BIDPRN PRN PO 07/19/24 21:45 07/22/24 09:43 100 MG Acetaminophen 500 mg Q6HP PRN PO 07/19/24 21:45 Nitroglycerin 0.4 mg Q5MINP PRN SL 07/19/24 21:45 Morphine Sulfate 2 mg Q30M PRN IV 07/19/24 21:45 Vancomycin HCl 0 ml @ 0 mls/hr UD IV 07/20/24 09:15 Piperacillin Sod/ Tazobactam Sod 100 ml @ 25 mls/hr Q8H IV 07/20/24 18:00 07/22/24 09:45 25 MLS/HR Vancomycin HCl 200 ml @ 200 mls/hr Q20H IV 07/20/24 15:00 07/21/24 11:00 200 MLS/HR Aspirin 81 mg DAILY PO 07/21/24 10:00 07/22/24 09:43 81 MG Sodium Chloride 1,000 ml @ 75 mls/hr [id number] IV 07/20/24 15:00 07/21/24 17:54 75 MLS/HR Laboratory Results Laboratory Tests 07/21/24 05:05 07/22/24 06:11 Urinalysis Test 07/20/24 10:20 Urine Color Yellow (Yellow) Urine Clarity Clear (Clear) Urine pH 5.5 (5.0-9.0) Urine Specific [place] 1.028 (1.001-1.035) Urine Protein 2+ (Negative) H Urine Ketones Trace (Negative) Urine Blood 3+ /uL (Negative) H Urine Nitrite Negative (Negative) Urine Bilirubin Negative (Negative) Urine Urobilinogen Normal mg/dL (Negative) Urine Leukocyte Esterase Trace /uL (Negative) Urine RBC 51 /hpf (0 - 3) Urine WBC 9 /hpf (0 - 3) Urine Squamous Epithelial Cells Few /hpf (<5) Urine Bacteria None seen /hpf (None Seen) Urine Glucose Normal mg/dL (Normal) Microbiology Microbiology Date/Time Source Procedure Growth Status 07/20/24 02:45 Arm Left Gram Stain - Final Resulted 07/20/24 02:45 Wound Culture - Preliminary Methicillin Resistant S.aureus Resulted 07/19/24 19:46 Blood Blood Culture - Preliminary NO GROWTH AFTER 48 HOURS OF INCUBATION. Resulted Labs and/or images reviewed: Labs reviewed by me, Image(s) reviewed by me Assessment/Plan Assessment/Plan Septic shock secondary to aspiration pneumonia: Continue Zosyn Acute hypoxic respiratory failure Possible aspiration pneumonia Acute COPD exacerbation Acute lactic acidosis ELIZABET Recent hospitalization for three months for pneumonia at [place], discharged home four days ago on home health and the patient was brought back to the ER for sepsis Hypothyroidism History of CVA with left hemiplegia CT head negative Hypercholesterolemia Multiple unstageable decubitus ulcers over the sacrum and open wound left arm, wound cultures showing MRSA sensitive to Zyvox, DC vancomycin start Zyvox Hard of hearing Time spent 65 minutes Advanced care planning time 20 minutes Patient is full code Midline ordered Plan discussed with: Patient Date of Service: Jul 22, 2024 Billing Provider: KATLYN GUTIERREZ MD Common Visit Codes: [id number] CARE 30-74 MIN KATLYN GUTIERREZ MD Jul 22, 2024 11:00
[2024-07-22] MEDS: LACTULOSE 20Gm/30ML SOLN PO ONE (12:06)
[2024-07-22] MEDS: FUROSEMIDE 40 MG/4 ML VIAL IV ONE (12:30)
[2024-07-22] MEDS: IPRATROPIUM BROM 0.5 MG/2.5ML INH SOL NEB SCH (14:18)
[2024-07-22] MEDS: ALBUTEROL SULF 2.5 MG/0.5ML(0.5%) NEB SOLN NEB SCH (14:19)
[2024-07-22] MEDS: LINEZOLID 600MG/300ML 300 ML IV SCH (22:41)
[2024-07-23] VITALS (15 sets, daily range): BP systolic 130–148; BP diastolic 59–80; PULSE 78–90; RESP 14–20; TEMP 97.8–98.1; O2SAT 95–100
--- NOTE | 2024-07-23 10:22 | DVHPN2 ---
Reviewed: Care Plan, H&P, Labs, Medications, Previous Orders, Radiology Changes from previous H/P or p: No Changes Objective Vitals Vital Signs Date Time Temp Pulse Resp B/P (MAP) Pulse Ox O2 Delivery O2 Flow Rate FiO2 07/23/24 09:34 85 16 100 07/23/24 09:28 Nasal Cannula 2.0 07/23/24 09:28 28 07/23/24 07:51 98.1 137/62 (87) 98.1 Intake/Output Intake and Output 07/23/24 07:00 Intake Total 1500 ml Balance 1500 ml Intake Oral 300 ml IV Total 1200 ml # Voids 2 # Bowel Movements 1 General Appearance: Other (Confused) HEENT: Atraumatic, Other (No eyelashes) Lungs: Other (Decreased air entry bilateral) Cardiovascular: Regular rate, Normal S1, Normal S2 Abdomen: Normal bowel sounds, Soft, No tenderness Neuro: Other (Left-sided weakness; the patient did not cooperate; unclear if he has dysarthria or not) Skin: Other (Stage II sacral decubitus ulcer; dressed lesions on left upper extremity; multiple bruises) Psych/Mental Status: Other (Confused) Medications Current Medications Medications Dose Ordered Sig/Alo Route Start Time Stop Time Status Last Admin Dose Admin Levothyroxine Sodium 100 mcg QAM@0600 PO 07/20/24 06:00 07/23/24 05:16 100 MCG Atorvastatin Calcium 20 mg HS PO 07/19/24 22:00 07/22/24 22:40 20 MG Diagnostic Test (Pha) 1 strip ACHS 07/19/24 22:00 07/23/24 06:21 1 STRIP Dextrose 50 ml UD PRN IV 07/19/24 21:45 Sodium Chloride 10 ml Q8HR IV 07/19/24 22:00 07/23/24 05:16 10 ML Acetaminophen/ Hydrocodone Bitart 1 tab Q4HP PRN PO 07/19/24 21:45 07/23/24 10:00 1 TAB Ondansetron HCl 4 mg Q4HP PRN IV 07/19/24 21:45 Docusate Sodium 100 mg BIDPRN PRN PO 07/19/24 21:45 07/23/24 09:15 100 MG Acetaminophen 500 mg Q6HP PRN PO 07/19/24 21:45 Nitroglycerin 0.4 mg Q5MINP PRN SL 07/19/24 21:45 Morphine Sulfate 2 mg Q30M PRN IV 07/19/24 21:45 Piperacillin Sod/ Tazobactam Sod 100 ml @ 25 mls/hr Q8H IV 07/20/24 18:00 07/23/24 09:11 25 MLS/HR Aspirin 81 mg DAILY PO 07/21/24 10:00 07/23/24 09:15 81 MG Sodium Chloride 1,000 ml @ 75 mls/hr [id number] IV 07/20/24 15:00 07/23/24 09:10 75 MLS/HR Linezolid 300 ml @ 150 mls/hr Q12HR IV 07/22/24 22:00 07/23/24 09:11 150 MLS/HR Albuterol 2.5 mg Q4HR NEB 07/22/24 14:00 07/23/24 09:28 2.5 MG Ipratropium [place] 0.5 mg Q4HWA NEB 07/22/24 14:00 07/23/24 09:28 0.5 MG Laboratory Results Laboratory Tests 07/21/24 05:05 07/22/24 06:11 Urinalysis Test 07/20/24 10:20 Urine Color Yellow (Yellow) Urine Clarity Clear (Clear) Urine pH 5.5 (5.0-9.0) Urine Specific [place] 1.028 (1.001-1.035) Urine Protein 2+ (Negative) H Urine Ketones Trace (Negative) Urine Blood 3+ /uL (Negative) H Urine Nitrite Negative (Negative) Urine Bilirubin Negative (Negative) Urine Urobilinogen Normal mg/dL (Negative) Urine Leukocyte Esterase Trace /uL (Negative) Urine RBC 51 /hpf (0 - 3) Urine WBC 9 /hpf (0 - 3) Urine Squamous Epithelial Cells Few /hpf (<5) Urine Bacteria None seen /hpf (None Seen) Urine Glucose Normal mg/dL (Normal) Microbiology Microbiology Date/Time Source Procedure Growth Status 07/21/24 10:20 Voided Urine Urine Culture - Preliminary Resulted 07/20/24 02:45 Arm Left Gram Stain - Final Resulted 07/20/24 02:45 Wound Culture - Preliminary Methicillin Resistant S.aureus Resulted 07/19/24 19:46 Blood Blood Culture - Preliminary NO GROWTH AFTER 72 HOURS OF INCUBATION. Resulted Labs and/or images reviewed: Labs reviewed by me, Image(s) reviewed by me Assessment/Plan Assessment/Plan Septic shock secondary to aspiration pneumonia: Continue Zosyn Acute hypoxic respiratory failure Possible aspiration pneumonia Acute COPD exacerbation Acute lactic acidosis ELIZABET Recent hospitalization for three months for pneumonia at [place], discharged home four days ago on home health and the patient was brought back to the ER for sepsis Hypothyroidism History of CVA with left hemiplegia CT head negative Hypercholesterolemia Multiple unstageable decubitus ulcers over the sacrum and open wound left arm, wound cultures showing MRSA sensitive to Zyvox, DC vancomycin start Zyvox Hard of hearing Patient's brother and JACOB Moreno [phone] at bedside and requesting long term facility placement for rehab. Time spent 55 minutes Advanced care planning time 20 minutes Patient is full code Midline ordered Plan discussed with: Patient My Orders Orders - KATLYN GUTIERREZ MD Procedure Category Date Status Time Linezolid 600mg/300ml PHA 07/22/24 In Process (Zyvox) 22:00 Insert Midline ORDERS 07/22/24 Transmitted 11:01 Albuterol Medneb PHA 07/22/24 In Process (Ventolin Medneb) 14:00 Ipratropium Medneb PHA 07/22/24 In Process (Atrovent Medneb) 14:00 Date of Service: Jul 23, 2024 Billing Provider: KATLYN GUTIERREZ MD Common Visit Codes: [id number] INP/OBS CARE(HIGH) KATLYN GUTIERREZ MD Jul 23, 2024 10:22
--- NOTE | 2024-07-23 10:38 | DVHDS2 ---
Discharge Summary Date of Admission Jul 19, 2024 at 21:43 Date of Discharge: Jul 23, 2024 Admitting Diagnosis Generalized weakness and confusion and altered mental status Wounds: Unstageable decubitus ulcer sacrum Left forearm open wound Labs/Diagnostic Data: Laboratory Results Test 07/23/24 05:40 07/22/24 06:11 07/21/24 05:05 07/20/24 10:20 POC Glucose 102 mg/dl (70-106) Creatinine 1.51 mg/dL (0.700-1.30) Glomerular Filtration Rate Calc 46 mL/min (>90) Vancomycin Level Trough 21.2 ug/mL (5-10) White Blood Count 12.5 10^3/uL (4.4-10.8) Red Blood Count 2.85 10^6/uL (4.5-5.90) Hemoglobin 8.7 g/dL (13.5-17.5) Hematocrit 26.6 % (41.0-53.0) Mean Corpuscular Volume 93.1 fL (80.0-100.0) Mean Corpuscular Hemoglobin 30.4 pg (28.0-32.0) Mean Corpuscular Hemoglobin Concent 32.7 g/dL (32.0-36.0) Red Cell Distribution Width 16.5 % (11.8-14.3) Platelet Count 293 10^3/uL (140-450) Mean Platelet Volume 8.5 fL (6.9-10.8) Neutrophils (%) (Auto) 77.4 % (37.0-80.0) Lymphocytes (%) (Auto) 11.1 % (10.0-50.0) Monocytes (%) (Auto) 6.9 % (0.0-12.0) Eosinophils (%) (Auto) 4.4 % (0.0-7.0) Basophils (%) (Auto) 0.2 % (0.0-2.0) Neutrophils # (Auto) 9.7 10 ^3/uL (1.6-8.6) Lymphocytes # (Auto) 1.4 10 ^3/uL (0.4-5.4) Monocytes # (Auto) 0.9 10 ^3/uL (0-1.3) Eosinophils # (Auto) 0.5 10 ^3/uL (0-0.8) Basophils # (Auto) 0 10 ^3/uL (0-0.2) Nucleated Red Blood Cells 0.0 % Sodium Level 141 mmol/L (136-145) Potassium Level 4.6 mmol/L (3.5-5.1) Chloride Level 108 mmol/L (98-107) Carbon Dioxide Level 26 mmol/L (20-31) Anion Gap 7 (5-15) Blood Urea Nitrogen 36 mg/dL (9-23) BUN/Creatinine Ratio 26.5 (10.0-20.0) Serum Glucose 75 mg/dL (74-106) Calcium Level 8.4 mg/dL (8.7-10.4) Total Bilirubin 0.5 mg/dL (0.2-1.0) Aspartate Amino Transferase (AST) 35 U/L (13-40) Alanine Aminotransferase (ALT) 22 U/L (7-40) Alkaline Phosphatase 81 U/L (46-116) Total Protein 4.6 g/dL (5.7-8.2) Albumin 2.7 g/dL (3.2-4.8) Urine Color Yellow (Yellow) Urine Clarity Clear (Clear) Urine pH 5.5 (5.0-9.0) Urine Specific [place] 1.028 (1.001-1.035) Urine Protein 2+ (Negative) Urine Ketones Trace (Negative) Urine Blood 3+ /uL (Negative) Urine Nitrite Negative (Negative) Urine Bilirubin Negative (Negative) Urine Urobilinogen Normal mg/dL (Negative) Urine Leukocyte Esterase Trace /uL (Negative) Urine RBC 51 /hpf (0 - 3) Urine WBC 9 /hpf (0 - 3) Urine Squamous Epithelial Cells Few /hpf (<5) Urine Bacteria None seen /hpf (None Seen) Urine Glucose Normal mg/dL (Normal) Test 07/19/24 21:33 07/19/24 21:30 07/19/24 19:46 Lactic Acid Level 1.8 mmol/L (0.4-2.0) Influenza Type A Antigen Negative (Negative) Influenza Type B Antigen Negative (Negative) SARS-CoV-2 Antigen (Rapid) Negative (NEGATIVE) Differential Total Cells Counted 99.0 (100) Neutrophils % (Manual) 58 (37.0-80.0) Band Neutrophils % (Manual) 26 Lymphocytes % (Manual) 7 (10.0-50.0) Monocytes % (Manual) 8 (0-12) Eosinophils % (Manual) 0 (0-7) Basophils % (Manual) 0 (0.0-2.0) Metamyelocytes % (manual) 0 Myelocytes % (Manual) 0 Promyelocytes % (Manual) 0 Blast Cells % (Manual) 0 Reactive Lymphocytes 0 Platelet Estimate Adequate Large Platelets Few Anisocytosis (manual) Slight Thyroid Stimulating Hormone (TSH) 5.22 uIU/mL (0.55-4.78) Other Laboratory Tests 07/22/24 06:11 07/21/24 05:05 Brief Hx & Hospital Course: 84-year-old male with multiple medical problems including COPD hypothyroidism history of CVA with left hemiplegia dementia hypothyroidism hypercholesterolemia hard of hearing who was in different hospital different nursing homes in the last one year last admission at [facility] for three months for pneumonia discharged to home on home health five days back brought back by the family for altered mental status and confusion and generalized weakness. Patient was found to be in septic shock secondary to aspiration pneumonia treated with the Zosyn he was given oxygen for acute hypoxic respiratory failure COPD exacerbation was treated appropriately patient has open wound of the left forearm on unstageable decubitus ulcer in the back wound cultures grew MRSA sensitive to Zyvox. Patient's general condition very poor secondary to multiple hospitalizations at different hospitals including [facility]. Patient unable to make decisions of his own because of severe dementia and previous stroke Patient's brother Josh [phone] who has power of software development advisor is at the bedside and is requesting detention facility placement for IV antibiotics and physical therapy. Patient did not receive Zosyn 3.375 g IV q.8 hours for 10 days for aspiration pneumonia and Zyvox 600 mg IV q.12h for one month for decubitus ulcer infection General condition very poor prognosis poor. Consults/Reason for consult None Operations or Procedures CT head Condition at Discharge: Poor Final Diagnosis/Problems List Septic shock secondary to aspiration pneumonia: Continue Zosyn Acute hypoxic respiratory failure Possible aspiration pneumonia Acute COPD exacerbation Acute lactic acidosis ELIZABET Recent hospitalization for three months for pneumonia at [facility], discharged home four days ago on home health and the patient was brought back to the ER for sepsis Hypothyroidism History of CVA with left hemiplegia CT head negative Hypercholesterolemia Multiple unstageable decubitus ulcers over the sacrum and open wound left arm present on admission, wound cultures showing MRSA sensitive to Zyvox, DC vancomycin start Zyvox Hard of hearing Discharge Disposition: Correction Facility Discharge Instruct/Medications Diet: Cardiac 2g Na,low cholest Activity: Bed rest Follow Up/Referral: Follow up with the [facility] Medications: Zyvox 600 mg IV b.i.d. for four weeks for decubitus ulcer infection Zosyn 3.375 g IV q.8 hours for 10 days for aspiration pneumonia See list for other medications 39 (Time Taken for discharge summary 39 minutes) Discharge Statement: "Patient was advised to return to the ER or call 911 if any headaches, dizziness, shortness of breath, chest pain, abdominal pain, bleeding, fevers, or worsening of medical condition. Patient was counseled about treatment plan, medications, possible side effects, patientverbalized understanding. All questions were answered to the best of my ability. This discharge took greater then 30 minutes in planning, reviewing documentation, counseling the patient, and discussing with other team members." ASSESSMENT ASSESSMENT Hospital Course Marginal improvement Assessment Septic shock secondary to aspiration pneumonia: Continue Zosyn Acute hypoxic respiratory failure Possible aspiration pneumonia Acute COPD exacerbation Acute lactic acidosis ELIZABET Recent hospitalization for three months for pneumonia at [facility], discharged home four days ago on home health and the patient was brought back to the ER for sepsis Hypothyroidism History of CVA with left hemiplegia CT head negative Hypercholesterolemia Multiple unstageable decubitus ulcers over the sacrum and open wound left arm present on admission, wound cultures showing MRSA sensitive to Zyvox, DC vancomycin start Zyvox Hard of hearing Date of Service: Jul 23, 2024 Billing Provider: KATLYN GUTIERREZ MD Common Visit Codes: 16940-VOU/OBS DISCH DAY >30min KATLYN GUTIERREZ MD Jul 23, 2024 10:38
== END 2024-07-23 19:41 | DRG 871 ==
LOC: EDBD 18:36 → ER 18:47 → TELE 21:43 → TELE-EAST 07-20 01:55
PROVIDERS: ADMIT Nurse Practitioner Family; ATTEND Family Medicine
PROC: 05HY33Z Insertion of Infusion Device into Upper Vein, Percutaneous Approach (ICD-10-PCS; principal; 2024-07-22)
PROC: B54NZZA Ultrasonography of Left Upper Extremity Veins, Guidance (ICD-10-PCS; 2024-07-22)
DX: A41.9 Sepsis, unspecified organism (principal); G93.41 Metabolic encephalopathy; J69.0 Pneumonitis due to inhalation of food and vomit; R65.21 Severe sepsis with septic shock; J96.01 Acute respiratory failure with hypoxia; J44.1 Chronic obstructive pulmonary disease with (acute) exacerbation; E87.21 Acute metabolic acidosis; I69.354 Hemiplegia and hemiparesis following cerebral infarction affecting left non-dominant side; N17.9 Acute kidney failure, unspecified; Z20.822 Contact with and (suspected) exposure to COVID-19; I10 Essential (primary) hypertension; E11.9 Type 2 diabetes mellitus without complications; E78.00 Pure hypercholesterolemia, unspecified; L89.150 Pressure ulcer of sacral region, unstageable; E03.9 Hypothyroidism, unspecified; B95.62 Methicillin resistant Staphylococcus aureus infection as the cause of diseases classified elsewhere; F03.C0 Unspecified dementia, severe, without behavioral disturbance, psychotic disturbance, mood disturbance, and anxiety
CPT/HCPCS: 36415; 70450; 71045; 80053; 80202; 81001; 82565; 82962; 83605; 84443; 85007; 85025; 85027; 87040; 87077; 87086; 87186; 87205; 87426; 87804; 93005; 94640; 97163; 99291; G0378; J0692; J2405; J2543; J3490

== ENCOUNTER 2024-07-24 19:49 | Inpatient (IN) | payer MEDICARE, MEDICAID ==
[~2024-07-24] VITALS: Ht 172.7 cm; Wt 81.9 kg
--- NOTE | 2024-07-24 19:55 | ED.PDOC ---
SOB-HPI HPI Comments 84-year-old male with PMHx DM, HTN, CVA, COPD, Dementia brought in by EMS from [facility] presents with a chief complaint of SOB x 1 hour. Per EMS, staff at [facility] called due to patient having acute onset of SOB. Patient is normally on 2L of O2 via NC, but was sating at 92%. Patient was given a breathing treatment en route by EMS and placed on 8L via Non-rebreather and is now sating at 99%. Patient denies any chest pain at this time. Time Seen by MD: 19:44 Reviewed notes: Medications, Allergies Information Source: Emergency Med Personnel Mode of Arrival: EMS Severity: Moderate Timing: Hours Duration: Since onset Context: At Rest PE Risk Factors: None Prehospital treatment: Breathing Tx, Oxygen Past Medical History PAST MEDICAL HISTORY: COPD, CVA, Dementia, DM, HTN Surgical History: Denies all surgeries Family History Family History: Reviewed,noncontributory to illness Social History Smoker: Non-Smoker Alcohol: Denies ETOH Use Drugs: Denies Drug Use Lives In: Home Constitutional: denies: chills, diaphoresis, fatigue, fever, malaise, sweats, weakness, others EENTM: denies: blurred vision, double vision, ear bleeding, ear discharge, ear drainage, ear pain, ear ringing, eye pain, eye redness, hearing loss, mouth pain, mouth swelling, nasal discharge, nose bleeding, nose congestion, nose pain, photophobia, tearing, throat pain, throat swelling, voice changes, others Respiratory: reports: SOB at rest, shortness of breath; denies: cough, hemoptysis, orthopnea, SOB with excertion, stridor, wheezing, others Cardiovascular: denies: chest pain, dizzy spells, diaphoresis, Dyspnea on exertion, edema, irregular heart beat, left arm pain, lightheadedness, palpitations, PND, syncope, others Gastrointestinal: denies: abdomen distended, abdominal pain, blood streaked bowels, constipated, diarrhea, dysphagia, difficulty swallowing, hematemesis, melena, nausea, poor appetite, poor fluid intake, rectal bleeding, rectal pain, vomiting, others Genitourinary: denies: burning, dysuria, flank pain, frequency, hematuria, incontinence, penile discharge, penile sore, pain, testicle pain, testicle swelling, urgency, others Neurological: denies: dizziness, fainting, headache, left sided numbness, left sided weakness, numbness, paresthesia, pre-existing deficit, right sided numbness, right sided weakness, seizure, speech problems, tingling, tremors, weakness, others Musculoskeletal: denies: back pain, gout, joint pain, joint swelling, muscle pain, muscle stiffness, neck pain, others Integumetry: denies: bruises, change in color, change in hair/nails, dryness, laceration, lesions, lumps, rash, wounds, others Allergic/Immunocompromised: denies: Difficulty Healing, Frequent Infections, Hi ves, Itching, others Hematologic/Lymphatic: denies: anemia, blood clots, easy bleeding, easy bruising, swollen glands, others Endocrine: denies: excessive hunger, excessive sweating, excessive thirst, excessive urination, flushing, intolerance to cold, intolerance to heat, unexplained weight gain, unexplained weight loss, others Psychiatric: denies: anxiety, bipolar disorder, depression, hopeless, panic disorder, schizophrenia, sleepless, suicidal, others All Other Systems: Reviewed and Negative Physical Exam General Appearance: Moderate Distress, Normal HEENT: Normal ENT Inspection, Pharynx Normal, TMs Normal Neck: Full Range of Motion, Non-Tender, Normal, Normal Inspection Respiratory: Chest Non-Tender, Lungs Clear, No Accessory Muscle Use, No Respiratory Distress, Normal Breath Sounds Cardiovascular: No Edema, No JVD, No Murmur, No Gallop, Normal Peripheral Pulses, Regular Rate/Rhythm Breast Exam: Deferred Gastrointestinal: No Organomegaly, Non Tender, No Pulsatile Mass, Normal Bowel Sounds, Soft Genitalia: Deferred Pelvic: Deferred Rectal: Deferred Extremities: No calf tenderness, Normal capillary refill, Normal inspection, Normal range of motion, Non-tender, No pedal edema Musculoskeletal : Apperance: Normal Neurologic: Alert, network and threat support specialist II-XII nml as Tested, No Motor Deficits, Normal Affect, Normal Mood, No Sensory Deficits Cerebellar Function: Normal Reflexes: Normal Skin: Dry, Normal Color, Warm Lymphatic: No Adenopathy Was a procedure done? Was a procedure done?: No Differential Dx Differential Diagnosis: Anxiety, Asthma, Bronchitis, CHF, COPD, Dysrhythmia, Panic Attack, Pneumonia X-Ray, Labs, Meds, VS Vital Signs Date Time Temp Pulse Resp B/P (MAP) Pulse Ox O2 Delivery O2 Flow Rate FiO2 07/24/24 20:41 96 07/24/24 20:01 98.0 86 22 140/73 (95) 93 07/24/24 19:49 100 Lab Test 07/24/24 21:08 07/24/24 20:23 07/24/24 20:10 Range/Units Troponin I High Sensitivity 8 9 </=54 ng/L Blood Gas Specimen Type Arterial Blood Gas Sample Site Right radial Blood Gas Patient Temperature 37.0 Arterial Blood Date Drawn Arterial Blood pH 7.433 7.350-7.450 Arterial Blood Partial Pressure CO2 25.0 L 35.0-48.0 mmHg Arterial Blood Partial Pressure O2 91.5 83.0-108.0 mmHg Arterial Blood HCO3 16.3 L 21.0-28.0 mmol/L Arterial Blood Oxygen Saturation 97.1 94.0-98.0 % Arterial Blood Base Excess -6.7 L -2.0-3.0 mmol/L Arterial Blood Oxyhemoglobin 96.1 94.0-98.0 % Arterial Blood Carboxyhemoglobin 0.4 L 0.5-1.5 % Arterial Blood Methemoglobin 0.6 0.0-1.5 % Garry Test Yes Blood Gas Total Hemoglobin 9.90 L 13.5-17.5 g/dL Blood Gas Liter Flow 3.00 Blood Gas Modality Nasal cannula FiO2 % 32.0 White Blood Count 10.6 4.4-10.8 10^3/uL Red Blood Count 3.09 L 4.5-5.90 10^6/uL Hemoglobin 9.3 L 13.5-17.5 g/dL Hematocrit 28.1 L 41.0-53.0 % Mean Corpuscular Volume 90.7 80.0-100.0 fL Mean Corpuscular Hemoglobin 30.2 28.0-32.0 pg Mean Corpuscular Hemoglobin Concent 33.3 32.0-36.0 g/dL Red Cell Distribution Width 16.4 H 11.8-14.3 % Platelet Count 314 140-450 10^3/uL Mean Platelet Volume 8.0 6.9-10.8 fL Neutrophils (%) (Auto) 67.6 37.0-80.0 % Lymphocytes (%) (Auto) 18.9 10.0-50.0 % Monocytes (%) (Auto) 9.4 0.0-12.0 % Eosinophils (%) (Auto) 3.8 0.0-7.0 % Basophils (%) (Auto) 0.3 0.0-2.0 % Neutrophils # (Auto) 7.2 1.6-8.6 10 ^3/uL Lymphocytes # (Auto) 2.0 0.4-5.4 10 ^3/uL Monocytes # (Auto) 1.0 0-1.3 10 ^3/uL Eosinophils # (Auto) 0.4 0-0.8 10 ^3/uL Basophils # (Auto) 0 0-0.2 10 ^3/uL Nucleated Red Blood Cells 0.1 % Prothrombin Time 11.5 9.3-11.8 sec Prothrombin Time INR 1.09 0.9-1.15 Activated Partial Thromboplast Time 33.0 24.5-34.5 SEC Sodium Level 138 136-145 mmol/L Potassium Level 4.5 3.5-5.1 mmol/L Chloride Level 108 H 98-107 mmol/L Carbon Dioxide Level 20 20-31 mmol/L Anion Gap 10 5-15 Blood Urea Nitrogen 44 H 9-23 mg/dL Creatinine 4.79 #H 0.700-1.30 mg/dL Glomerular Filtration Rate Calc 11 >90 mL/min BUN/Creatinine Ratio 9.2 L 10.0-20.0 Serum Glucose 104 74-106 mg/dL Calcium Level 8.4 L 8.7-10.4 mg/dL Magnesium Level 2.3 1.6-2.6 mg/dL Total Bilirubin 0.5 0.2-1.0 mg/dL Aspartate Amino Transferase (AST) 26 13-40 U/L Alanine Aminotransferase (ALT) 22 7-40 U/L Alkaline Phosphatase 119 H 46-116 U/L B-Type Natriuretic Peptide 497.64 0-100 pg/mL Total Protein 5.7 5.7-8.2 g/dL Albumin 3.0 L 3.2-4.8 g/dL PATIENT: CLARI SUAREZT: [id number]: [id number] : 1940 LOC: ER ROOM / BED: / AGE / SEX: 84 / M ADM STATUS: REG ER SERVICE 50 ORDERING PHYSICIAN: ESTELLA GOLDBERG MD PROCEDURE(s): CXRP - CHEST PORTABLE REASON: sob ORDER NUMBER(s): [id number], ACCESSION NUMBER(s): [id number] CHEST RADIOGRAPH Indication:sob Technique: Single frontal view of the chest was obtained Comparison: XY CHEST PORTABLE on DOS: 07/19/24 FINDINGS: Lines and Tubes: None Lungs: Hazy opacification of the right lower lung zone with indistinctness of the right hemidiaphragm . left basilar opacification with obscuration of the left hemidiaphragm No pneumothorax. Cardiomediastinal contours: Unremarkable Bones: No acute osseous abnormality. IMPRESSION: Trace bilateral pleural effusions with associated atelectasis. ATED BY: SHERRI MCKEON DO DICTATED DATE/TIME: 07/24/242046 SIGNED BY: SHERRI MCKEON DO SIGNED DATE/TIME: 07/24/242046 First troponin is nine. Second troponin is eight. BNP is 498. EKG shows no signs of ischemia. Chest x-ray shows bilateral pleural effusion. Hemoglobin is 9.3. BUN is 44 and creatinine is 4.8. Chest x-ray showed bilateral pleural effusion. The patient will be admitted to the hospitalist for further evaluation and care. Time of 1ST Reevaluation: 20:14 Reevaluation 1ST: Unchanged Patient Education/Counseling: Diagnosis, Treatment, Prognosis Family Education/Counseling: No Family Present Departure 1 Departure Time of Disposition: 22:44 Impression: Primary Impression: COPD with acute exacerbation Additional Impressions: Dyspnea Qualified Codes: R06.02 - Shortness of breath Chronic kidney disease Qualified Codes: N18.9 - Chronic kidney disease, unspecified Premature atrial contractions Disposition: ADMITTED INPATIENT Admit to: Tele Condition: Guarded e-Prescriptions Unable to Obtain Active Prescriptions or Reported Meds Critical Care Note Critical Care Time?: Yes (35 min-critical care time only) Stability Stability form required: No Heart Score Heart Score: Heart Score Response (Comments) Value History N/A 0 EKG Normal 0 Age >65 2 Risk Factors 1 or 2 risk factors 1 Troponin Normal limit 0 Total 3 I personally scribed for ESTELLA GOLDBERG MD ([email or web address]) on 07/24/24 at 19:55. Electronically submitted by Abhinav De La Garza ([email or web address]). I personally scribed for ESTELLA GOLDBERG MD ([email or web address]) on 07/24/24 at 21:24. Electronically submitted by Abhinav De La Garza ([email or web address]). ESTELLA GOLDBERG MD Jul 24, 2024 19:55
[2024-07-24 20:27] LABS: Base Excess -6.7 mmol/L (-2.0-3.0)
[2024-07-24 20:47] LABS: Basophils # (auto) 0 10 ^3/uL (0-0.2); Basophils % (auto) 0.3 % (0.0-2.0); Eosinophils # (auto) 0.4 10 ^3/uL (0-0.8); Eosinophils % (auto) 3.8 % (0.0-7.0); Hematocrit 28.1 % (41.0-53.0); Hemoglobin 9.3 g/dL (13.5-17.5); Lymphocytes % (auto) 18.9 % (10.0-50.0); Mean Corpuscular Hemoglobin 30.2 pg (28.0-32.0); Mean Corpuscular Hgb Conc. 33.3 g/dL (32.0-36.0); Mean Corpuscular Volume 90.7 fL (80.0-100.0); Monocytes % (auto) 9.4 % (0.0-12.0); Neutrophils # (auto) 7.2 10 ^3/uL (1.6-8.6); Neutrophils % (auto) 67.6 % (37.0-80.0); Nucleated Red Blood Cells % 0.1 %; Platelet Count (auto) 314 10^3/uL (140-450); Red Blood Cells 3.09 10^6/uL (4.5-5.90); Red Cell Distribution Width 16.4 % (11.8-14.3); White Blood Cell 10.6 10^3/uL (4.4-10.8)
--- NOTE | 2024-07-24 20:49 | DVH ---
CHEST RADIOGRAPH Indication:sob Technique: Single frontal view of the chest was obtained Comparison: XY CHEST PORTABLE on DOS: 07/19/24 FINDINGS: Lines and Tubes: None Lungs: Hazy opacification of the right lower lung zone with indistinctness of the right hemidiaphragm . left basilar opacification with obscuration of the left hemidiaphragm No pneumothorax. Cardiomediastinal contours: Unremarkable Bones: No acute osseous abnormality. IMPRESSION: Trace bilateral pleural effusions with associated atelectasis.
[2024-07-24 20:59] LABS: Alanine Aminotransferase 22 U/L (7-40); Alkaline Phosphatase 119 U/L (46-116); Anion Gap 10 (5-15); Aspartate Aminotransferase 26 U/L (13-40); BUN/Creatinine Ratio 9.2 (10.0-20.0); Bilirubin, Total 0.5 mg/dL (0.2-1.0); Blood Urea Nitrogen 44 mg/dL (9-23); Calcium 8.4 mg/dL (8.7-10.4); Carbon Dioxide 20 mmol/L (20-31); Chloride 108 mmol/L (98-107); Glucose 104 mg/dL (74-106); Magnesium 2.3 mg/dL (1.6-2.6); Potassium 4.5 mmol/L (3.5-5.1); Sodium 138 mmol/L (136-145); Total Protein 5.7 g/dL (5.7-8.2)
--- NOTE | 2024-07-24 21:04 | ECG ---
[facility] Test Date: 2024-07-24 Test Time: 20:41:41 Pat Name: RAYNE SUAREZ Department: ED Room: 0231 Gender: M Sap Bw Bi Developer: EVELIA : 1940 Requested By: ESTELLA GOLDBERG Order Number: [id number] Reading MD: Gonzalo David Measurements Intervals [place] Rate: 96 P: 75 TN: 166 QRS: -8 QRSD: 85 T: 59 QT: 329 QTc: 416 Interpretive Statements Sinus tachycardia Atrial premature complexes Borderline low voltage, extremity leads Electronically Signed On 08-02-2024 12:58:55 PST by Gonzalo David Please click the below link to view image of tracing.
[2024-07-24 21:05] LABS: INR 1.09 (0.9-1.15); Prothrombin Time 11.5 sec (9.3-11.8)
[2024-07-24 23:10] VITALS: PULSE 83; RESP 20; O2SAT 97
[2024-07-24] MEDS: methylPREDNISolone SOD SUCC 125 MG/2 ML VL IV ONE (23:13)
[2024-07-24] MEDS: SODIUM CHLORIDE 0.9% 1,000 ML IV ONE (23:13)
[2024-07-24] MEDS: levoFLOXacin 500MG 100 ML IV ONE (23:13)
[2024-07-24] MEDS ORDERED: MORPHINE SULFATE INJ 2 MG/ml SYRG IV PRN (23:15)
[2024-07-24] MEDS ORDERED: HYDROcodone-ACET 5/325MG TAB PO PRN (23:15)
[2024-07-24] MEDS ORDERED: NITROGLYCERIN 0.4 MG SL TAB SL PRN (23:15)
--- NOTE | 2024-07-24 23:34 | DVHHPRES ---
History of Present Illness Resident Creating Document: NAEL QUINTEROS RESIDENT History of Present Illness This is a 84-year-old male with past medical history of type 2 diabetes mellitus, hypothyroidism, hypertension, hyperlipidemia, COPD on 2 L oxygen, CVA with left-sided weakness, dementia presented to the ED by via EMS from [facility] with a chief complaint of shortness of breath for 1 hour prior to this admission. Patient has dementia and hard of hearing but mentioned shortness of patient breath associated with cough and productive sputum for last 1 week. Patient discharged from this hospital 1 days ago with a diagnosis of aspiration pneumonia and ELIZABET. The patient denies chest pain, dizziness, diaphoresis, abdominal pain, nausea, vomiting or any change in bowel and bladder habit. Past Medical History Type 2 diabetes mellitus, hypertension, hyperlipidemia, COPD on 2 L oxygen, CVA with left-sided weakness, dementia Past Surgical History None Family History None Smoke: No ALCOHOL: none Drugs: None Lives: Half-Way Review of Systems Constitutional: No: Fever, Chills, Sweats, Weakness, Malaise, Other Eyes: No: Pain, Vision change, Conjunctivae inflammation, Eyelid inflammation, Other, Redness ENT: No: Ear pain, Ear discharge, Nose pain, Nose discharge, Nose congestion, Mouth pain, Mouth swelling, Throat pain, Throat swelling, Other Respiratory: Cough, Shortness of breath, Sputum Cardiovascular: No: Chest Pain, Palpitations, Orthopnea, Paroxysmal Noc. Dyspnea, Edema, Lt Headedness, Other Gastrointestinal: No: Nausea, Vomiting, Abdominal Pain, Diarrhea, Constipation, Melena, Hematochezia, Other Genitourinary: No Dysuria, No Frequency, No Incontinence, No Hematuria, No Retention, No Other Musculoskeletal: No: other, neck pain, shoulder pain, arm pain, back pain, hand pain, leg pain, foot pain Skin: No: Rash, Lesions, Jaundice, Bruising, Other Neurological: No: Weakness, Numbness, Incoordination, Change in speech, Confusion, Seizures, Other Allergies: Coded Allergies: No Known Drug Allergy (Verified Allergy, Unknown, 07/20/24) Medications Current Medications Medications Dose Ordered Sig/Alo Route Start Time Stop Time Status Last Admin Dose Admin Sodium Chloride 10 ml Q8HR IV 07/25/24 06:00 Acetaminophen/ Hydrocodone Bitart 1 tab Q4HP PRN PO 07/24/24 23:15 Ondansetron HCl 4 mg Q4HP PRN IV 07/24/24 23:15 Nitroglycerin 0.4 mg Q5MINP PRN SL 07/24/24 23:15 Morphine Sulfate 2 mg Q30M PRN IV 07/24/24 23:15 Levofloxacin/ Dextrose 150 ml @ 100 mls/hr DAILY IV 07/25/24 10:00 UNV Methylprednisolone Sodium Succinate 40 mg BID IV 07/25/24 10:00 Exam Vital Signs Vital Signs Date Time Temp Pulse Resp B/P (MAP) Pulse Ox O2 Delivery O2 Flow Rate FiO2 07/24/24 20:41 96 07/24/24 20:01 98.0 22 140/73 (95) 93 Exam Physical examination: General Appearance: Alert, Oriented X3, Cooperative, mild distress with 3L oxygen through nasal canula . HEENT: Atraumatic, PERRLA, EOMI, Mucous membrane moist/pink Respiratory: Bilateral wheezing and rales, more on the rt side. Cardiovascular: Regular rate, Normal S1, Normal S2, No murmurs, no chest wall tenderness Abdominal: Normal bowel sounds, Soft, No tenderness, No hepatospenomegaly, No masses Extremities: No clubbing, No cyanosis, No edema, Normal pulses, No tenderness/swelling Skin: No rashes, No breakdown, No significant lesion Neuro: Normal gait, Normal speech, Strength at 5/5 X4 ext, Normal tone, Sensation intact, Cranial nerves 3-12 NL, Reflexes 2+ Psych/Mental Status: Mental status NL, Mood NL Labs/Xrays Labs Test 07/24/24 21:08 07/24/24 20:23 07/24/24 20:10 Range/Units Troponin I High Sensitivity 8 </=54 ng/L Blood Gas Specimen Type Arterial Blood Gas Sample Site Right radial Blood Gas Patient Temperature 37.0 Arterial Blood Date Drawn [id number] Arterial Blood pH 7.433 7.350-7.450 Arterial Blood Partial Pressure CO2 25.0 L 35.0-48.0 mmHg Arterial Blood Partial Pressure O2 91.5 83.0-108.0 mmHg Arterial Blood HCO3 16.3 L 21.0-28.0 mmol/L Arterial Blood Oxygen Saturation 97.1 94.0-98.0 % Arterial Blood Base Excess -6.7 L -2.0-3.0 mmol/L Arterial Blood Oxyhemoglobin 96.1 94.0-98.0 % Arterial Blood Carboxyhemoglobin 0.4 L 0.5-1.5 % Arterial Blood Methemoglobin 0.6 0.0-1.5 % Garry Test Yes Blood Gas Total Hemoglobin 9.90 L 13.5-17.5 g/dL Blood Gas Liter Flow 3.00 Blood Gas Modality Nasal cannula FiO2 % 32.0 White Blood Count 10.6 4.4-10.8 10^3/uL Red Blood Count 3.09 L 4.5-5.90 10^6/uL Hemoglobin 9.3 L 13.5-17.5 g/dL Hematocrit 28.1 L 41.0-53.0 % Mean Corpuscular Volume 90.7 80.0-100.0 fL Mean Corpuscular Hemoglobin 30.2 28.0-32.0 pg Mean Corpuscular Hemoglobin Concent 33.3 32.0-36.0 g/dL Red Cell Distribution Width 16.4 H 11.8-14.3 % Platelet Count 314 140-450 10^3/uL Mean Platelet Volume 8.0 6.9-10.8 fL Neutrophils (%) (Auto) 67.6 37.0-80.0 % Lymphocytes (%) (Auto) 18.9 10.0-50.0 % Monocytes (%) (Auto) 9.4 0.0-12.0 % Eosinophils (%) (Auto) 3.8 0.0-7.0 % Basophils (%) (Auto) 0.3 0.0-2.0 % Neutrophils # (Auto) 7.2 1.6-8.6 10 ^3/uL Lymphocytes # (Auto) 2.0 0.4-5.4 10 ^3/uL Monocytes # (Auto) 1.0 0-1.3 10 ^3/uL Eosinophils # (Auto) 0.4 0-0.8 10 ^3/uL Basophils # (Auto) 0 0-0.2 10 ^3/uL Nucleated Red Blood Cells 0.1 % Prothrombin Time 11.5 9.3-11.8 sec Prothrombin Time INR 1.09 0.9-1.15 Activated Partial Thromboplast Time 33.0 24.5-34.5 SEC Sodium Level 138 136-145 mmol/L Potassium Level 4.5 3.5-5.1 mmol/L Chloride Level 108 H 98-107 mmol/L Carbon Dioxide Level 20 20-31 mmol/L Anion Gap 10 5-15 Blood Urea Nitrogen 44 H 9-23 mg/dL Creatinine 4.79 #H 0.700-1.30 mg/dL Glomerular Filtration Rate Calc 11 >90 mL/min BUN/Creatinine Ratio 9.2 L 10.0-20.0 Serum Glucose 104 74-106 mg/dL Calcium Level 8.4 L 8.7-10.4 mg/dL Magnesium Level 2.3 1.6-2.6 mg/dL Total Bilirubin 0.5 0.2-1.0 mg/dL Aspartate Amino Transferase (AST) 26 13-40 U/L Alanine Aminotransferase (ALT) 22 7-40 U/L Alkaline Phosphatase 119 H 46-116 U/L B-Type Natriuretic Peptide 497.64 0-100 pg/mL Total Protein 5.7 5.7-8.2 g/dL Albumin 3.0 L 3.2-4.8 g/dL Assessment/Plan Assessment/Plan Assessment and Plan: # Acute on chronic respiratory failure due to possible exacerbation of COPD # Rule out Pulmonary embolism # Possible aspiration pneumonia # questionable exacerbation of CHF - Patient is on 3 L oxygen with saturation 99% - IV methylprednisolone 40 mg b.i.d. - Duoneb 2 neb treatment with albuterol and ipratropium q.4 hours - BNP is elevated - Chest x-ray demonstrated trace bilateral pleural effusion with associated atelectasis - IV levofloxacin 750 mg daily - IV doxycycline 100 mg b.i.d. - Ordered COVID and flu - Ordered D-dimer and Doppler scan of the lower extremity. # ELIZABET on possible CKD secondary to hemodynamically mediated/VMN - Patient was given 1 L IV bolus normal saline - BNP is elevated and ordered echo to rule out heart failure - Ordered urine sodium, urine creatinine and urine osmolality - Avoid nephrotoxic medication - Strict I&O - Consulted nephrology - Monitor BMP # History of dementia with possible aspiration - Failed nursing swallow evaluation - Patient is NPO - Ordered swallow evaluation by speech therapy. # History of CVA with left-sided weakness - Continue aspirin 81 mg daily and atorvastatin 80 mg at HS # Multiple unstageable sacral decubitus ulcer - Last wound culture done on and revealed MRSA - IV doxycycline 100 mg b.i.d. # History of hypothyroidism - Levothyroxine 100 mcg p.o. daily # DVT prophylaxis - Heparin 5000 units sc b.i.d. Goal of care discussed with the patient for more than 20 minutes full code Plan of treatment discussed with Dr. Benton Plan discussed with: Patient, Other My Orders Orders - NAEL QUINTEROS RESIDENT Procedure Category Date Status Time Admit ADMIT 07/24/24 Transmitted 23:09 Code Status CODE 07/24/24 Transmitted 23:09 Sodium Chloride Lock PHA 07/25/24 In Process (Saline Lock Ns) 06:00 Oxygen Per Hour RT 07/24/24 Transmitted 23:09 Hydrocodone-Acet PHA 07/24/24 In Process 5/325mg Tab ([place] 23:15 Ondansetron Hcl PHA 07/24/24 In Process (Zofran) 23:15 Fall Risk Precautions [facility] 07/24/[address] 23:09 Complete Blood Count LAB 07/25/24 Verified 04:00 Comprehensive LAB 07/25/24 Verified Metabolic Panel 04:00 Npo (Nothing By DIET 07/25/24 Transmitted Mouth) Diet Breakfast Pt Request For Service PT 07/24/24 Logged 23:09 Sequential PAMELA 07/24/24 In Process Compression Device Nitroglycerin [facility] 07/24/24 In Process Sublingual (Ntrostat 23:15 Morphine Sulfate PHA 07/24/24 In Process Injection 23:15 Oxygen By Nasal RT 07/24/24 Transmitted Cannula 23:09 Stat Ekg For Chest [facility] 07/24/24 In Process Pain 23:09 Notify Of Changes [facility] 07/24/24 In Process From Base 23:09 Interventional Nurse For [facility] 07/24/24 In Process 24 Hours 23:09 Emergency Dysrhythmia [facility] 07/24/24 In Process Protocol 23:09 Rhythm Strips Once [facility] 07/24/24 In Process Every Shift 23:09 Levofloxacin 750mg PHA 07/25/24 Logged (Levaquin) 10:00 Methylprednisolone PHA 07/25/24 In Process Sod Succ (Solu Medrol 10:00 Echo 2d Mode Cardiac US 07/24/24 Logged DOP 23:18 Lactic Acid W/ Reflex LAB 07/24/24 Logged Order 23:22 Date of Service: Jul 24, 2024 Billing Provider: LOVE BENTON MD Common Visit Codes: 63379-[id number] INP/OBS CARE (HIGH) Secondary Visit Codes: [id number]-[id number] CARE PLAN 30 MINUTES NAEL QUINTEROS Jul 24, 2024 23:34 LOVE BENTON MD Jul 25, 2024 10:40
[2024-07-25] VITALS (13 sets, daily range): BP systolic 104–136; BP diastolic 51–67; PULSE 71–84; RESP 16–20; TEMP 97.6–98; O2SAT 97–100
[2024-07-25] MEDS ORDERED: KETOROLAC TROMETH 30 MG/ML 1ML VIAL IV PRN (01:15)
[2024-07-25] MEDS: MORPHINE SULFATE INJ 2 MG/ml SYRG IV PRN (02:14)
[2024-07-25] MEDS: ONDANSETRON HCL 4 MG/2 ML VIAL IV PRN (02:14)
[2024-07-25] MEDS: IPRATROPIUM BROM 0.5 MG/2.5ML INH SOL NEB SCH (02:29)
[2024-07-25] MEDS: ALBUTEROL SULF 2.5 MG/0.5ML(0.5%) NEB SOLN NEB SCH (02:29)
[2024-07-25 05:22] LABS: Hematocrit 27.5 % (41.0-53.0); Hemoglobin 9.2 g/dL (13.5-17.5); Mean Corpuscular Hemoglobin 30.4 pg (28.0-32.0); Mean Corpuscular Hgb Conc. 33.4 g/dL (32.0-36.0); Platelet Count (auto) 276 10^3/uL (140-450); Red Blood Cells 3.02 10^6/uL (4.5-5.90); Red Cell Distribution Width 16.1 % (11.8-14.3); White Blood Cell 10.1 10^3/uL (4.4-10.8)
[2024-07-25 05:27] LABS: Band Neutrophils % (manual) 0; Basophils % (manual) 0 (0.0-2.0); Blast Cells 0; Eosinophils % (manual) 0 (0-7); Metamyelocytes % 0; Myelocytes % 0; Promyelocytes % 0; Reactive Lymphocytes 0
[2024-07-25 05:41] LABS: Alanine Aminotransferase 25 U/L (7-40); Albumin 2.9 g/dL (3.2-4.8); Alkaline Phosphatase 224 U/L (46-116); Anion Gap 13 (5-15); Aspartate Aminotransferase 27 U/L (13-40); BUN/Creatinine Ratio 9.1 (10.0-20.0); Bilirubin, Total 0.5 mg/dL (0.2-1.0); Blood Urea Nitrogen 47 mg/dL (9-23); Calcium 8.4 mg/dL (8.7-10.4); Carbon Dioxide 17 mmol/L (20-31); Chloride 108 mmol/L (98-107); Glucose 122 mg/dL (74-106); Potassium 5.1 mmol/L (3.5-5.1); Sodium 138 mmol/L (136-145); Total Protein 5.6 g/dL (5.7-8.2)
[2024-07-25] MEDS: SODIUM CHLOR 0.9% PF (SALINE LOCK) 10ML VIAL/SYR IV SCH (06:00)
[2024-07-25] MEDS: DOXYCYCLINE 100MG/250ML 250 ML IV SCH (06:32)
--- NOTE | 2024-07-25 06:48 | ECG ---
[facility] Test Date: 2024-07-24 Test Time: 19:49:18 Pat Name: RAYNE SUAREZ Department: ED Room: 0231 Gender: M Provider Network Manager: EVELIA : 1940 Requested By: ESTELLA GOLDBERG Order Number: [id number] Reading MD: Gonzalo David Measurements Intervals [place] Rate: 100 P: 36 OK: 169 QRS: -20 QRSD: 85 T: 41 QT: 333 QTc: 430 Interpretive Statements Sinus tachycardia Atrial premature complexes Borderline left axis deviation Borderline low voltage, extremity leads Baseline wander in lead(s) V6 Electronically Signed On 08-02-2024 12:58:03 PST by Gonzalo David Please click the below link to view image of tracing.
[2024-07-25 06:54] LABS: Anisocytosis Slight; Lymphocytes % (manual) 1 (10.0-50.0); Monocytes % (manual) 1 (0-12); Platelet Estimate Adequate
--- NOTE | 2024-07-25 08:50 | DVH ---
BILATERAL LOWER EXTREMITY VENOUS DOPPLER CLINICAL HISTORY: To rule out DVT Technique: Duplex Doppler evaluation of the deep venous systems of both lower extremities from the co mmon femoral veins to the popliteal veins including color Doppler and spectral/pulsed waveform analys is was performed. COMPARISON: None FINDINGS: The right and left common femoral, superficial femoral, popliteal, posterior tibial and peroneal vein s appear patent with normal augmentation, phasicity, compressibility and color-flow. IMPRESSION: 1. There is no sonographic evidence for DVT in the lower extremities. HS:Y
[2024-07-25] MEDS: LEVOTHYROXINE SODIUM 100 MCG TAB PO SCH (10:05)
[2024-07-25] MEDS: methylPREDNISolone SOD SUCC 40 MG/ML VL IV SCH (10:05)
[2024-07-25] MEDS: HEPARIN SODIUM (PORCINE) 5000 UNITS/ML 1ML VIAL SC SCH (10:06)
[2024-07-25] MEDS: LACTULOSE 20Gm/30ML SOLN PO ONE (10:06)
--- NOTE | 2024-07-25 10:19 | DVHPN2 ---
Reviewed: Care Plan, H&P, Labs, Medications, Previous Orders, Radiology Changes from previous H/P or p: No Changes Eyes: No Pain, No Vision change, No Conjunctivae inflammation, No Eyelid inflammation, No Other, No Redness ENT: No Ear pain, No Ear discharge, No Nose pain, No Nose discharge, No Nose congestion, No Mouth pain, No Mouth swelling, No Throat pain, No Throat swelling, No Other Cardiovascular: No Chest Pain, No Palpitations, No Orthopnea, No Paroxysmal Noc. Dyspnea, No Edema, No Lt Headedness, No Other Respiratory: Cough, Shortness of breath, Sputum Gastrointestinal: No Nausea, No Vomiting, No Abdominal Pain, No Diarrhea, No Constipation, No Melena, No Hematochezia, No Other Genitourinary: No Dysuria, No Frequency, No Incontinence, No Hematuria, No Retention, No Other Musculoskeletal: No other, No neck pain, No shoulder pain, No arm pain, No back pain, No hand pain, No leg pain, No foot pain Skin: No Rash, No Lesions, No Jaundice, No Bruising, No Other Objective Vitals Vital Signs Date Time Temp Pulse Resp B/P (MAP) Pulse Ox O2 Delivery O2 Flow Rate FiO2 07/25/24 09:37 80 97 Nasal Cannula* 2 28 07/25/24 09:09 16 07/25/24 08:01 130/75 (93) 07/25/24 02:29 98.0 98.0 Intake/Output Intake and Output 07/25/24 07:00 Intake Total 100 ml Balance 100 ml Intake IV Total 100 ml Medications Current Medications Medications Dose Ordered Sig/Alo Route Start Time Stop Time Status Last Admin Dose Admin Sodium Chloride 10 ml Q8HR IV 07/25/24 06:00 Acetaminophen/ Hydrocodone Bitart 1 tab Q4HP PRN PO 07/24/24 23:15 Ondansetron HCl 4 mg Q4HP PRN IV 07/24/24 23:15 07/25/24 02:14 4 MG Nitroglycerin 0.4 mg Q5MINP PRN SL 07/24/24 23:15 Morphine Sulfate 2 mg Q30M PRN IV 07/24/24 23:15 Levofloxacin/ Dextrose 100 ml @ 66.667 mls/ hr EOD IV 07/26/24 10:00 Methylprednisolone Sodium Succinate 40 mg BID IV 07/25/24 10:00 07/25/24 10:05 40 MG Levothyroxine Sodium 100 mcg DAILY PO 07/25/24 10:00 07/25/24 10:05 100 MCG Albuterol 2.5 mg Q4HR NEB 07/25/24 02:00 07/25/24 09:04 2.5 MG Ipratropium [place] 0.5 mg Q4HR NEB 07/25/24 02:00 07/25/24 09:04 0.5 MG Morphine Sulfate 2 mg Q4HPRN PRN IV 07/25/24 02:15 07/25/24 02:14 2 MG Heparin Sodium (Porcine) 5,000 units Q12HR SC 07/25/24 10:00 07/25/24 10:06 5,000 UNITS Doxycycline Hyclate 250 ml @ 125 mls/hr Q12H IV 07/25/24 06:15 07/25/24 06:32 125 MLS/HR Laboratory Results Laboratory Tests 07/25/24 05:00 07/25/24 05:03 Chemistry Test 07/24/24 20:10 07/25/24 05:00 Albumin 3.0 g/dL (3.2-4.8) L 2.9 g/dL (3.2-4.8) L Calcium Level 8.4 mg/dL (8.7-10.4) L 8.4 mg/dL (8.7-10.4) L Magnesium Level 2.3 mg/dL (1.6-2.6) Total Protein 5.7 g/dL (5.7-8.2) 5.6 g/dL (5.7-8.2) L Coagulation Test 07/24/24 20:10 07/25/24 05:03 Prothrombin Time 11.5 sec (9.3-11.8) Prothrombin Time INR 1.09 (0.9-1.15) Activated Partial Thromboplast Time 33.0 SEC (24.5-34.5) D-Dimer, Quantitative 2.57 mg/L FEU (0.0-0.49) H Cardiac Markers Test 07/24/24 20:10 B-Type Natriuretic Peptide 497.64 pg/mL (0-100) LFT Test 07/24/24 20:10 07/25/24 05:00 Alanine Aminotransferase (ALT) 22 U/L (7-40) 25 U/L (7-40) Alkaline Phosphatase 119 U/L (46-116) H 224 U/L (46-116) H Aspartate Amino Transferase (AST) 26 U/L (13-40) 27 U/L (13-40) Total Bilirubin 0.5 mg/dL (0.2-1.0) 0.5 mg/dL (0.2-1.0) HgA1c, TSH Test 07/25/24 05:03 Hemoglobin A1c Pending Blood Gas Results Test 07/24/24 20:23 Arterial Blood pH 7.433 (7.350-7.450) FiO2 % 32.0 Labs and/or images reviewed: Labs reviewed by me, Image(s) reviewed by me Assessment/Plan Assessment/Plan Acute on chronic hypoxic respiratory failure: Oxygen by nasal cannula, ABG normal Acute COPD exacerbation: Albuterol Atrovent Solu-Medrol, consult for pulmonology Dr. Sandy Possible community-acquired aspiration pneumonia: Doxycycline Levaquin Possible CHF exacerbation with BNP in the range of 500: Echocardiogram consult for telephone engineer Dr. Antunez on CKD: BUN creatinine 47 and 5.17, consult for Nephrology Dr. Ireland Dementia History of CVA with left-sided hemiplegia Multiple unstageable decubitus ulcer of the sacrum: Wound consult Hypothyroidism Elevated D-dimer 2.57 DVT ruled out V/Q scan pending Condition guarded Moderate malnutrition History of prolonged hospitalization for three-month at [facility] Time spent 75 minutes Patient is full code Advanced care planning time 20 minutes Patient was discharged from this hospital two days ago to [facility] and was brought back for shortness of breath Plan discussed with: Patient My Orders Orders - KATLYN GUTIERREZ MD Procedure Category Date Status Time Hemoglobin A1c LAB 07/25/24 In Process 09:30 *Consult CONS 07/25/24 Transmitted / 10:07 * Cardiology Consult CONS 07/25/24 Transmitted 10:09 Furosemide Injection PHA 07/25/24 Logged (Lasix Injection) 18:00 Date of Service: Jul 25, 2024 Billing Provider: KATLYN GUTIERREZ MD Common Visit Codes: [id number]-[id number] CARE 30-74 MIN KATLYN GUTIERREZ MD Jul 25, 2024 10:19
[2024-07-25 10:56] LABS: Magnesium 2.3 mg/dL (1.6-2.6)
[2024-07-25 10:57] LABS: Phosphorus 5.7 mg/dL (2.4-5.1)
[2024-07-25 11:00] LABS: Free T3 1.47 pg/mL (2.3-4.2)
--- NOTE | 2024-07-25 11:47 | DVH ---
INDICATION: 84 years old, Male; isaias. TECHNIQUE: Multiple real-time sonographic images of the kidneys and bladder were obtained. COMPARISON: None FINDINGS: The right kidney measures 10 cm in length, which is normal in size. There is normal echogenicity of t he right kidney. No hydronephrosis. The left kidney measures 9 cm in length, which is normal in size. There is normal echogenicity of the left kidney. No hydronephrosis. 1 cm right renal cyst. 7 mm calcification in the right upper pole. No large intraluminal masses are seen in the bladder. IMPRESSION: 1. Normal sonographic appearance of the kidneys. No hydronephrosis. 2. 1 cm right renal cyst. 3. 7 mm calcification in the right upper pole. This likely represents a nonobstructing renal calculus .
--- NOTE | 2024-07-25 13:52 | DVHINCON2 ---
Date of service: Jul 25, 2024 Reason for Consultation ELIZABET History of Present Illness . 84-year-old white male with PMH type 2 diabetes mellitus, hypothyroidism, hypertension, hyperlipidemia, COPD on 2 L oxygen, CVA with left-sided weakness, dementia presented to the ED by via EMS from [facility] with a chief complaint of shortness of breath for 1 hour prior to this admission. Patient was discharged from this hospital approximately 48 hours ago for which during that time he was admitted for sepsis secondary to pneumonia was diagnosed with Multi drug-resistant boots as well was given antibiotics including Zosyn and vancomycin. Approximately 48 hours ago patient's renal function GFR was approximately in CKD three. Now presents to the hospital complaining of shortness of breath and a creatinine of five Based on my exam patient has left-sided facial droop and left-sided weakness. Previous records note a history of respiratory hemiparesis consistent with current exam Past Medical History As above Allergies: Coded Allergies: No Known Drug Allergy (Verified Allergy, Unknown, 07/20/24) Home Meds Unable to Obtain Active Prescriptions or Reported Meds Current Medications Current Medications Medications (Trade) Dose Ordered Sig/Alo Route PRN Reason Start Time Stop Time Status Last Admin Sodium Chloride (Saline Lock Ns) 10 ml Q8HR IV 07/25/24 06:00 Acetaminophen/ Hydrocodone Bitart ([place] 5/325MG Tab) 1 tab Q4HP PRN PO MODERATE PAIN (4-6 PAIN SCALE) 07/24/24 23:15 Ondansetron HCl (Zofran) 4 mg Q4HP PRN IV NAUSEA / VOMITING 07/24/24 23:15 07/25/24 02:14 Nitroglycerin (Ntrostat Sublingual) 0.4 mg Q5MINP PRN SL FOR CHEST PAIN 07/24/24 23:15 Morphine Sulfate 2 mg Q30M PRN IV FOR CHEST PAIN 07/24/24 23:15 Levofloxacin/ Dextrose 100 ml @ 66.667 mls/ hr EOD IV 07/26/24 10:00 Methylprednisolone Sodium Succinate (Solu Medrol) 40 mg BID IV 07/25/24 10:00 07/25/24 10:05 Levothyroxine Sodium (Synthroid Tablet) 100 mcg DAILY PO 07/25/24 10:00 07/25/24 10:05 Albuterol (Ventolin Medneb) 2.5 mg Q4HR NEB 07/25/24 02:00 07/25/24 13:14 Ipratropium [place] (Atrovent Medneb) 0.5 mg Q4HR NEB 07/25/24 02:00 07/25/24 13:14 Ketorolac Tromethamine (Toradol Injection) 30 mg Q6HPRN PRN IV SEVERE PAIN (7-10 PAIN SCALE) 07/25/24 01:15 07/25/24 02:04 DC Morphine Sulfate 2 mg Q4HPRN PRN IV SEVERE PAIN (7-10 PAIN SCALE) 07/25/24 02:15 07/25/24 02:14 Heparin Sodium (Porcine) 5,000 units Q12HR SC 07/25/24 10:00 07/25/24 10:06 Doxycycline Hyclate 250 ml @ 125 mls/hr Q12H IV 07/25/24 06:15 07/25/24 06:32 Furosemide (Lasix Injection) 40 mg BIDD IV 07/25/24 18:00 Family History: Patient reports no known family medical history. Review of Systems Shortness of breath H&P Exam Vital Signs/I&O Vital Sign Date Time Temp Pulse Resp B/P (MAP) Pulse Ox O2 Delivery O2 Flow Rate FiO2 07/25/24 13:15 97 Nasal Cannula 2.0 07/25/24 13:15 28 07/25/24 13:15 71 16 07/25/24 10:00 137/57 (83) 07/25/24 02:29 98.0 98.0 Intake and Output 07/24/24 07/25/24 19:00 07:00 Intake Total 100 ml Balance 100 ml Intake IV Total 100 ml Physical Exam Elderly white male Appears stated age Ill-appearing Slurred speech with left facial droop Contracted left arm Without decrease weakness in the right left lower extremity Abdomen is soft No pitting edema Labs/Diagnostic Data Labs/Diagnostic Data Laboratory Tests Test 07/25/24 07:17 07/25/24 05:03 07/25/24 05:00 07/24/24 21:08 Range/Units POC Glucose 140 H 70-106 mg/dl White Blood Count 10.1 4.4-10.8 10^3/uL Red Blood Count 3.02 L 4.5-5.90 10^6/uL Hemoglobin 9.2 L 13.5-17.5 g/dL Hematocrit 27.5 L 41.0-53.0 % Mean Corpuscular Volume 91.0 80.0-100.0 fL Mean Corpuscular Hemoglobin 30.4 28.0-32.0 pg Mean Corpuscular Hemoglobin Concent 33.4 32.0-36.0 g/dL Red Cell Distribution Width 16.1 H 11.8-14.3 % Platelet Count 276 140-450 10^3/uL Mean Platelet Volume 7.9 6.9-10.8 fL Neutrophils (%) (Auto) 37.0-80.0 % Lymphocytes (%) (Auto) 10.0-50.0 % Monocytes (%) (Auto) 0.0-12.0 % Basophils (%) (Auto) 0.0-2.0 % Neutrophils # (Auto) 1.6-8.6 10 ^3/uL Lymphocytes # (Auto) 0.4-5.4 10 ^3/uL Monocytes # (Auto) 0-1.3 10 ^3/uL Differential Total Cells Counted 100.0 100 Neutrophils % (Manual) 98 H 37.0-80.0 Band Neutrophils % (Manual) 0 Lymphocytes % (Manual) 1 L 10.0-50.0 Monocytes % (Manual) 1 0-12 Eosinophils % (Manual) 0 0-7 Basophils % (Manual) 0 0.0-2.0 Metamyelocytes % (manual) 0 Myelocytes % (Manual) 0 Promyelocytes % (Manual) 0 Blast Cells % (Manual) 0 Reactive Lymphocytes 0 Platelet Estimate Adequate Anisocytosis (manual) Slight D-Dimer, Quantitative 2.57 H 0.0-0.49 mg/L FEU Hemoglobin A1c 5.1 <5.7 % A1C Sodium Level 138 136-145 mmol/L Potassium Level 5.1 3.5-5.1 mmol/L Chloride Level 108 H 98-107 mmol/L Carbon Dioxide Level 17 L 20-31 mmol/L Anion Gap 13 5-15 Blood Urea Nitrogen 47 H 9-23 mg/dL Creatinine 5.17 H 0.700-1.30 mg/dL Glomerular Filtration Rate Calc 10 >90 mL/min BUN/Creatinine Ratio 9.1 L 10.0-20.0 Serum Glucose 122 H 74-106 mg/dL Calcium Level 8.4 L 8.7-10.4 mg/dL Phosphorus Level 5.7 H 2.4-5.1 mg/dL Magnesium Level 2.3 1.6-2.6 mg/dL Total Bilirubin 0.5 0.2-1.0 mg/dL Aspartate Amino Transferase (AST) 27 13-40 U/L Alanine Aminotransferase (ALT) 25 7-40 U/L Alkaline Phosphatase 224 H 46-116 U/L Total Protein 5.6 L 5.7-8.2 g/dL Albumin 2.9 L 3.2-4.8 g/dL Vitamin B12 Level 775 211-911 pg/mL Vitamin D 25-Hydroxy 47.1 30.0-100 ng/mL Free Triiodothyronine (T3) pg/mL 1.47 L 2.3-4.2 pg/mL Random Vancomycin Level 17.5 H 5-10 ug/mL Troponin I High Sensitivity 8 </=54 ng/L Test 07/24/24 20:23 07/24/24 20:10 Range/Units Blood Gas Specimen Type Arterial Blood Gas Sample Site Right radial Blood Gas Patient Temperature 37.0 Arterial Blood Date Drawn Arterial Blood pH 7.433 7.350-7.450 Arterial Blood Partial Pressure CO2 25.0 L 35.0-48.0 mmHg Arterial Blood Partial Pressure O2 91.5 83.0-108.0 mmHg Arterial Blood HCO3 16.3 L 21.0-28.0 mmol/L Arterial Blood Oxygen Saturation 97.1 94.0-98.0 % Arterial Blood Base Excess -6.7 L -2.0-3.0 mmol/L Arterial Blood Oxyhemoglobin 96.1 94.0-98.0 % Arterial Blood Carboxyhemoglobin 0.4 L 0.5-1.5 % Arterial Blood Methemoglobin 0.6 0.0-1.5 % Garry Test Yes Blood Gas Total Hemoglobin 9.90 L 13.5-17.5 g/dL Blood Gas Liter Flow 3.00 Blood Gas Modality Nasal cannula FiO2 % 32.0 White Blood Count 10.6 4.4-10.8 10^3/uL Red Blood Count 3.09 L 4.5-5.90 10^6/uL Hemoglobin 9.3 L 13.5-17.5 g/dL Hematocrit 28.1 L 41.0-53.0 % Mean Corpuscular Volume 90.7 80.0-100.0 fL Mean Corpuscular Hemoglobin 30.2 28.0-32.0 pg Mean Corpuscular Hemoglobin Concent 33.3 32.0-36.0 g/dL Red Cell Distribution Width 16.4 H 11.8-14.3 % Platelet Count 314 140-450 10^3/uL Mean Platelet Volume 8.0 6.9-10.8 fL Neutrophils (%) (Auto) 67.6 37.0-80.0 % Lymphocytes (%) (Auto) 18.9 10.0-50.0 % Monocytes (%) (Auto) 9.4 0.0-12.0 % Eosinophils (%) (Auto) 3.8 0.0-7.0 % Basophils (%) (Auto) 0.3 0.0-2.0 % Neutrophils # (Auto) 7.2 1.6-8.6 10 ^3/uL Lymphocytes # (Auto) 2.0 0.4-5.4 10 ^3/uL Monocytes # (Auto) 1.0 0-1.3 10 ^3/uL Eosinophils # (Auto) 0.4 0-0.8 10 ^3/uL Basophils # (Auto) 0 0-0.2 10 ^3/uL Nucleated Red Blood Cells 0.1 % Prothrombin Time 11.5 9.3-11.8 sec Prothrombin Time INR 1.09 0.9-1.15 Activated Partial Thromboplast Time 33.0 24.5-34.5 SEC Sodium Level 138 136-145 mmol/L Potassium Level 4.5 3.5-5.1 mmol/L Chloride Level 108 H 98-107 mmol/L Carbon Dioxide Level 20 20-31 mmol/L Anion Gap 10 5-15 Blood Urea Nitrogen 44 H 9-23 mg/dL Creatinine 4.79 #H 0.700-1.30 mg/dL Glomerular Filtration Rate Calc 11 >90 mL/min BUN/Creatinine Ratio 9.2 L 10.0-20.0 Serum Glucose 104 74-106 mg/dL Lactic Acid Level 1.0 0.4-2.0 mmol/L Calcium Level 8.4 L 8.7-10.4 mg/dL Magnesium Level 2.3 1.6-2.6 mg/dL Total Bilirubin 0.5 0.2-1.0 mg/dL Aspartate Amino Transferase (AST) 26 13-40 U/L Alanine Aminotransferase (ALT) 22 7-40 U/L Alkaline Phosphatase 119 H 46-116 U/L Troponin I High Sensitivity 9 </=54 ng/L B-Type Natriuretic Peptide 497.64 0-100 pg/mL Total Protein 5.7 5.7-8.2 g/dL Albumin 3.0 L 3.2-4.8 g/dL Assessment Acute kidney injury multifactorial can not exclude direct nephrotoxicity Chronic kidney disease stage 3 Diabetes Stroke with left residual weakness /deficit Hypertension Pleural effusions Sepsis with recent treatment of pneumonia and decubitus ulcers Recommend obtaining vancomycin random level Avoid further nephrotoxic drugs Avoid contrast studies Obtain echocardiogram to obtain baseline function Ultrasound of the kidney shows nonobstructing kidney stone Recommended to strict Is&Os P.o. nutrition Plan discussed with: Patient ELEAZAR DAVIS MD Jul 25, 2024 13:52
--- NOTE | 2024-07-25 15:15 | DVHSR ---
APPROVED REPORT EXAM: LIMITED Two-dimensional and M-mode echocardiogram with Doppler and color Doppler. Blood Pressure: 127/78 mmHg INDICATION Shortness of breath RISK FACTORS Height: 5' 8", Weight: 175 DIMENSIONS LVDd4.8 (3.8-5.7cm)LA (2D)3.9 (1.9-4.0cm)Aortic Root3.0 (2.0-3.7cm) LVDs3.7 (2.5-4.0cm)LA (MM) (1.9-4.0cm)Aortic Cusp Exc1.7 (1.5-2.0cm) EF (%) 55.0 (55-70%)Rt. Atrium2.8 (1.9-4.0cm)Asc. Aorta cm IVSd0.8 (0.7-1.1cm)RV (D) (1.8-2.4cm) PWd0.8 (0.7-1.1cm) Mitral Valve MitralMitral Stenosis E wave1.00m/sMV Mean GR.mmHg A wave1.20m/sMV Peak GR.mmHg E/A ratio0.82D MVAcm2 Aortic Valve Aortic ValveAortic Stenosis V11.10m/Sonia Mean GR.5mmHg V21.40m/Sonia Peak GR.9mmHg LVOT Diameter2.3 (1.8-2.4cm)Doppler AVA3.26cm2 Pulmonic Valve V20.90m/s Other Information Quality : Technically LimitedRhythm : Technically limited study due to patient stated he was done being scanned and wanted the test stoppe d. Conclusion Normal left ventricular size and dimension. Normal left ventricular systolic function estimated ejec tion fraction 55%. There is a grade 1 diastolic dysfunction. Normal right ventricular size and dimension. Normal right ventricular systolic function. Normal biatrial size and dimension. Normal aortic valve structure and function. Normal mitral valve structure and function. Normal tricuspid valve structure and function. The pulmonary valve is grossly normal. No pericardial effusion.
--- NOTE | 2024-07-25 17:56 | DVHINCON2 ---
Date Seen: Jul 25, [address] Diaz Reason for Consultation CHF exacerbation History of Present Illness Junior Kim is a 84-year-old male patient who presents to ED via EMS from nursing facility ([facility]) with chief complaint of progressive dyspnea days before his admission. Patient is a poor historian due to dementia, history of CVA and also is hard of hearing. Obtained review of system from EMR. Patient was recently discharged from hospital (one day prior to his new visit) with recent diagnosis of aspiration pneumonia and ELIZABET. Denies palpitation, syncope, chest pain, nausea, vomiting, diarrhea, constipation, bleeding, dysuria, recent travel, sick contacts and new motor or sensory deficits. Past medical history: Hypertension, dyslipidemia, diabetes, COPD with home oxygen requirement (2 liters/minute) history of CVA symptomatic by left-sided hemiplegia, dementia, hypothyroidism Surgical history: Denies Family history: Noncontributory Social history: Lives in group home. Denies current tobacco, alcohol and other drug abuse. Allergies: Denies Home medication: Not available in EMR Patient seen and examined at bedside. Patient currently has no complaints, except for difficulty hearing. Currently on nasal cannula 2 L/minute Past Medical History Per HPI Past Surgical History Per HPI Family History: Patient reports no known family medical history. Family History Per HPI Social History Per HPI Allergies: Coded Allergies: No Known Drug Allergy (Verified Allergy, Unknown, 07/20/24) Home Meds Unable to Obtain Active Prescriptions or Reported Meds Current Medications Current Medications Medications (Trade) Dose Ordered Sig/Alo Route PRN Reason Start Time Stop Time Status Last Admin Sodium Chloride (Saline Lock Ns) 10 ml Q8HR IV 07/25/24 06:00 07/25/24 14:00 Acetaminophen/ Hydrocodone Bitart ([place] 5/325MG Tab) 1 tab Q4HP PRN PO MODERATE PAIN (4-6 PAIN SCALE) 07/24/24 23:15 Ondansetron HCl (Zofran) 4 mg Q4HP PRN IV NAUSEA / VOMITING 07/24/24 23:15 07/25/24 02:14 Nitroglycerin (Ntrostat Sublingual) 0.4 mg Q5MINP PRN SL FOR CHEST PAIN 07/24/24 23:15 Morphine Sulfate 2 mg Q30M PRN IV FOR CHEST PAIN 07/24/24 23:15 Levofloxacin/ Dextrose 100 ml @ 66.667 mls/ hr EOD IV 07/26/24 10:00 Methylprednisolone Sodium Succinate (Solu Medrol) 40 mg BID IV 07/25/24 10:00 07/25/24 10:05 Levothyroxine Sodium (Synthroid Tablet) 100 mcg DAILY PO 07/25/24 10:00 07/25/24 10:05 Albuterol (Ventolin Medneb) 2.5 mg Q4HR NEB 07/25/24 02:00 07/25/24 13:14 Ipratropium [place] (Atrovent Medneb) 0.5 mg Q4HR NEB 07/25/24 02:00 07/25/24 13:14 Ketorolac Tromethamine (Toradol Injection) 30 mg Q6HPRN PRN IV SEVERE PAIN (7-10 PAIN SCALE) 07/25/24 01:15 07/25/24 02:04 DC Morphine Sulfate 2 mg Q4HPRN PRN IV SEVERE PAIN (7-10 PAIN SCALE) 07/25/24 02:15 07/25/24 02:14 Heparin Sodium (Porcine) 5,000 units Q12HR SC 07/25/24 10:00 07/25/24 10:06 Doxycycline Hyclate 250 ml @ 125 mls/hr Q12H IV 07/25/24 06:15 07/25/24 06:32 Furosemide (Lasix Injection) 40 mg BIDD IV 07/25/24 18:00 Review of Systems Per HPI Vital Signs Vital Signs Date Time Temp Pulse Resp B/P (MAP) Pulse Ox O2 Delivery O2 Flow Rate FiO2 07/25/24 13:15 97 Nasal Cannula 2.0 07/25/24 13:15 28 07/25/24 13:15 71 16 07/25/24 10:00 137/57 (83) 07/25/24 02:29 98.0 98.0 Physical Exam Patient lying in bed, in no acute distress General: Lucid, afebrile, mucosae are moist, gargling sounds in oral cavity Cardiovascular: Normal S1 and S2. No murmurs, gallops or rubs Respiratory: Regular ventilation mechanics. Diffuse bilateral rhonchus. On nasal cannula 2 liters/minute Abdomen: Soft, nontender, no organomegaly, normal bowel sounds MSK/skin: Mobilizes 4 limbs. Skin is dry and warm. Sacral decubitus ulcer stage II-III Neurological: Oriented in 3 spheres. Bronchial crural left-sided weakness no other motor no sensitive deficits. Pupils are isocoric and reactive Labs/Diagnostic Data Labs Test 07/25/24 07:17 07/25/24 05:03 07/25/24 05:00 07/24/24 21:08 Range/Units POC Glucose 140 H 70-106 mg/dl White Blood Count 10.1 4.4-10.8 10^3/uL Red Blood Count 3.02 L 4.5-5.90 10^6/uL Hemoglobin 9.2 L 13.5-17.5 g/dL Hematocrit 27.5 L 41.0-53.0 % Mean Corpuscular Volume 91.0 80.0-100.0 fL Mean Corpuscular Hemoglobin 30.4 28.0-32.0 pg Mean Corpuscular Hemoglobin Concent 33.4 32.0-36.0 g/dL Red Cell Distribution Width 16.1 H 11.8-14.3 % Platelet Count 276 140-450 10^3/uL Mean Platelet Volume 7.9 6.9-10.8 fL Neutrophils (%) (Auto) 37.0-80.0 % Lymphocytes (%) (Auto) 10.0-50.0 % Monocytes (%) (Auto) 0.0-12.0 % Basophils (%) (Auto) 0.0-2.0 % Neutrophils # (Auto) 1.6-8.6 10 ^3/uL Lymphocytes # (Auto) 0.4-5.4 10 ^3/uL Monocytes # (Auto) 0-1.3 10 ^3/uL Differential Total Cells Counted 100.0 100 Neutrophils % (Manual) 98 H 37.0-80.0 Band Neutrophils % (Manual) 0 Lymphocytes % (Manual) 1 L 10.0-50.0 Monocytes % (Manual) 1 0-12 Eosinophils % (Manual) 0 0-7 Basophils % (Manual) 0 0.0-2.0 Metamyelocytes % (manual) 0 Myelocytes % (Manual) 0 Promyelocytes % (Manual) 0 Blast Cells % (Manual) 0 Reactive Lymphocytes 0 Platelet Estimate Adequate Anisocytosis (manual) Slight D-Dimer, Quantitative 2.57 H 0.0-0.49 mg/L FEU Hemoglobin A1c 5.1 <5.7 % A1C Sodium Level 138 136-145 mmol/L Potassium Level 5.1 3.5-5.1 mmol/L Chloride Level 108 H 98-107 mmol/L Carbon Dioxide Level 17 L 20-31 mmol/L Anion Gap 13 5-15 Blood Urea Nitrogen 47 H 9-23 mg/dL Creatinine 5.17 H 0.700-1.30 mg/dL Glomerular Filtration Rate Calc 10 >90 mL/min BUN/Creatinine Ratio 9.1 L 10.0-20.0 Serum Glucose 122 H 74-106 mg/dL Calcium Level 8.4 L 8.7-10.4 mg/dL Phosphorus Level 5.7 H 2.4-5.1 mg/dL Magnesium Level 2.3 1.6-2.6 mg/dL Total Bilirubin 0.5 0.2-1.0 mg/dL Aspartate Amino Transferase (AST) 27 13-40 U/L Alanine Aminotransferase (ALT) 25 7-40 U/L Alkaline Phosphatase 224 H 46-116 U/L Total Protein 5.6 L 5.7-8.2 g/dL Albumin 2.9 L 3.2-4.8 g/dL Vitamin B12 Level 775 211-911 pg/mL Vitamin D 25-Hydroxy 47.1 30.0-100 ng/mL Free Triiodothyronine (T3) pg/mL 1.47 L 2.3-4.2 pg/mL Random Vancomycin Level 17.5 H 5-10 ug/mL Troponin I High Sensitivity 8 </=54 ng/L Test 07/24/24 20:23 07/24/24 20:10 Range/Units Blood Gas Specimen Type Arterial Blood Gas Sample Site Right radial Blood Gas Patient Temperature 37.0 Arterial Blood Date Drawn Arterial Blood pH 7.433 7.350-7.450 Arterial Blood Partial Pressure CO2 25.0 L 35.0-48.0 mmHg Arterial Blood Partial Pressure O2 91.5 83.0-108.0 mmHg Arterial Blood HCO3 16.3 L 21.0-28.0 mmol/L Arterial Blood Oxygen Saturation 97.1 94.0-98.0 % Arterial Blood Base Excess -6.7 L -2.0-3.0 mmol/L Arterial Blood Oxyhemoglobin 96.1 94.0-98.0 % Arterial Blood Carboxyhemoglobin 0.4 L 0.5-1.5 % Arterial Blood Methemoglobin 0.6 0.0-1.5 % Garry Test Yes Blood Gas Total Hemoglobin 9.90 L 13.5-17.5 g/dL Blood Gas Liter Flow 3.00 Blood Gas Modality Nasal cannula FiO2 % 32.0 Eosinophils (%) (Auto) 3.8 0.0-7.0 % Eosinophils # (Auto) 0.4 0-0.8 10 ^3/uL Basophils # (Auto) 0 0-0.2 10 ^3/uL Nucleated Red Blood Cells 0.1 % Prothrombin Time 11.5 9.3-11.8 sec Prothrombin Time INR 1.09 0.9-1.15 Activated Partial Thromboplast Time 33.0 24.5-34.5 SEC Lactic Acid Level 1.0 0.4-2.0 mmol/L B-Type Natriuretic Peptide 497.64 0-100 pg/mL Assessment Acute respiratory failure Probable aspiration pneumonia COPD exacerbation Bilateral pleural effusion Probable cardiorenal syndrome type III Hypothyroidism History of CVA Dementia Ruled out bilateral lower limb DVT Sacral decubitus ulcer present on admission Plan/Recommendation EKG shows sinus rhythm with multiple PACs, no ST alteration. Troponin negative, BNP 497. Creatinine level 5.17 (in previous admission was 1.79) While completing kidney ultrasound, incidentally observed bilateral pleural effusion. We will evaluate need for thoracocentesis. Ordered echocardiogram to evaluate LVEF Patient is currently on IV diuretics (furosemide 40 mg IV b.i.d.). Optimize loading conditions Nephrology evaluation appreciated V/Q scan pending to rule out PE Discussed plan with Dr. Pacheco, patient and nurses: Patient has multiple causes of dyspnea, at this point we recommend echocardiogram. Chest ultrasound was ordered for eventual thoracocentesis, nephrology evaluation is appreciated, treatment for aspiration pneumonia and probable COPD exacerbation per hospitalist. Patient has poor prognosis, suggest discussion of goals of care with family (patient currently lives in nursing facility). Plan discussed with: Patient, Other (Nurses) Date of Service: Jul 25, 2024 Billing Provider: PAUL PACHECO MD Cardiology Common Codes: 29221-FQGIHXC INP/OBS CARE (High), [id number] CARE 30-74 MIN FLAVIA BECKER RESIDENT Jul 25, 2024 17:56
[2024-07-25] MEDS: FUROSEMIDE 40 MG/4 ML VIAL IV SCH (18:53)
--- NOTE | 2024-07-25 19:22 | DVHINCON2 ---
Date of service: Jul 25, [address] Zay Diaz Reason for Consultation 84-year-old man history of type 2 diabetes mellitus, hypothyroidism, hypertension, hyperlipidemia, COPD, chronic hypoxic respiratory failure, dependence on supplemental oxygen, CVA with left-sided weakness, dementia who presented from [facility] with a chief complaint of shortness of breath. He notes he productive cough and phlegm production for the last week. Pulmonary consultation is called for acute exacerbation of COPD and acute on chronic hypoxic respiratory failure. Review of systems: 14 point review of systems is negative unless otherwise noted above. Past medical history: type 2 diabetes mellitus, hypothyroidism, hypertension, hyperlipidemia, COPD, chronic hypoxic respiratory failure, dependence on suppl emental oxygen, CVA with left-sided weakness, dementia Past surgical history: None mentioned in prior surgeries. Medications: Reviewed Allergies: No known drug allergies. Family history: No family history of premature CAD. No family history of lung disease Social history: Nonsmoker. No alcohol or illicit drug use. Lives in care home. Family History: Patient reports no known family medical history. Allergies: Coded Allergies: No Known Drug Allergy (Verified Allergy, Unknown, 07/20/24) Home Meds Unable to Obtain Active Prescriptions or Reported Meds Current Medications Current Medications Medications (Trade) Dose Ordered Sig/Alo Route PRN Reason Start Time Stop Time Status Last Admin Sodium Chloride (Saline Lock Ns) 10 ml Q8HR IV 07/25/24 06:00 07/25/24 14:00 Acetaminophen/ Hydrocodone Bitart ([place] 5/325MG Tab) 1 tab Q4HP PRN PO MODERATE PAIN (4-6 PAIN SCALE) 07/24/24 23:15 Ondansetron HCl (Zofran) 4 mg Q4HP PRN IV NAUSEA / VOMITING 07/24/24 23:15 07/25/24 02:14 Nitroglycerin (Ntrostat Sublingual) 0.4 mg Q5MINP PRN SL FOR CHEST PAIN 07/24/24 23:15 Morphine Sulfate 2 mg Q30M PRN IV FOR CHEST PAIN 07/24/24 23:15 Levofloxacin/ Dextrose 100 ml @ 66.667 mls/ hr EOD IV 07/26/24 10:00 Methylprednisolone Sodium Succinate (Solu Medrol) 40 mg BID IV 07/25/24 10:00 07/25/24 10:05 Levothyroxine Sodium (Synthroid Tablet) 100 mcg DAILY PO 07/25/24 10:00 07/25/24 10:05 Albuterol (Ventolin Medneb) 2.5 mg Q4HR NEB 07/25/24 02:00 07/25/24 13:14 Ipratropium [place] (Atrovent Medneb) 0.5 mg Q4HR NEB 07/25/24 02:00 07/25/24 13:14 Ketorolac Tromethamine (Toradol Injection) 30 mg Q6HPRN PRN IV SEVERE PAIN (7-10 PAIN SCALE) 07/25/24 01:15 07/25/24 02:04 DC Morphine Sulfate 2 mg Q4HPRN PRN IV SEVERE PAIN (7-10 PAIN SCALE) 07/25/24 02:15 07/25/24 02:14 Heparin Sodium (Porcine) 5,000 units Q12HR SC 07/25/24 10:00 07/25/24 10:06 Doxycycline Hyclate 250 ml @ 125 mls/hr Q12H IV 07/25/24 06:15 07/25/24 06:32 Furosemide (Lasix Injection) 40 mg BIDD IV 07/25/24 18:00 Vital Signs Vital Signs Date Time Temp Pulse Resp B/P (MAP) Pulse Ox O2 Delivery O2 Flow Rate FiO2 07/25/24 18:30 100 Nasal Cannula 2.0 07/25/24 18:30 28 07/25/24 13:15 71 16 07/25/24 10:00 137/57 (83) 07/25/24 02:29 98.0 98.0 Physical Exam Gen.: Patient lying in bed in mild apparent distress. On supplemental oxygen. He is breathing comfortably on room air. Head: Normocephalic, atraumatic Eyes: EOMI/PERRLA. Ears: Normal hearing. Normal anatomy. Neck/trachea: Trachea midline, supple. Nose: Normal external anatomy. Mouth: Moist mucous membranes. Chest: Decreased air entry bilaterally. Bilateral wheezing. Bilateral rales, more prominent on the right side. Cardio vascular: Positive S1, positive S2. Regular rate and rhythm. Abdomen: Positive bowel sounds in all 4 quadrants. Soft, non-tender, non- distended. : Deferred. Rectal: Deferred Skin: Warm, dry. Extremities: 2+ radial pulses bilaterally. No lower extremity edema. Neuro: Awake, alert, oriented to person and place. No gross motor or sensory deficits. Cranial nerves II through XII intact. Gait not assessed. Labs/Diagnostic Data Labs Test 07/25/24 07:17 07/25/24 05:03 07/25/24 05:00 07/24/24 21:08 Range/Units POC Glucose 140 H 70-106 mg/dl White Blood Count 10.1 4.4-10.8 10^3/uL Red Blood Count 3.02 L 4.5-5.90 10^6/uL Hemoglobin 9.2 L 13.5-17.5 g/dL Hematocrit 27.5 L 41.0-53.0 % Mean Corpuscular Volume 91.0 80.0-100.0 fL Mean Corpuscular Hemoglobin 30.4 28.0-32.0 pg Mean Corpuscular Hemoglobin Concent 33.4 32.0-36.0 g/dL Red Cell Distribution Width 16.1 H 11.8-14.3 % Platelet Count 276 140-450 10^3/uL Mean Platelet Volume 7.9 6.9-10.8 fL Neutrophils (%) (Auto) 37.0-80.0 % Lymphocytes (%) (Auto) 10.0-50.0 % Monocytes (%) (Auto) 0.0-12.0 % Basophils (%) (Auto) 0.0-2.0 % Neutrophils # (Auto) 1.6-8.6 10 ^3/uL Lymphocytes # (Auto) 0.4-5.4 10 ^3/uL Monocytes # (Auto) 0-1.3 10 ^3/uL Differential Total Cells Counted 100.0 100 Neutrophils % (Manual) 98 H 37.0-80.0 Band Neutrophils % (Manual) 0 Lymphocytes % (Manual) 1 L 10.0-50.0 Monocytes % (Manual) 1 0-12 Eosinophils % (Manual) 0 0-7 Basophils % (Manual) 0 0.0-2.0 Metamyelocytes % (manual) 0 Myelocytes % (Manual) 0 Promyelocytes % (Manual) 0 Blast Cells % (Manual) 0 Reactive Lymphocytes 0 Platelet Estimate Adequate Anisocytosis (manual) Slight D-Dimer, Quantitative 2.57 H 0.0-0.49 mg/L FEU Hemoglobin A1c 5.1 <5.7 % A1C Sodium Level 138 136-145 mmol/L Potassium Level 5.1 3.5-5.1 mmol/L Chloride Level 108 H 98-107 mmol/L Carbon Dioxide Level 17 L 20-31 mmol/L Anion Gap 13 5-15 Blood Urea Nitrogen 47 H 9-23 mg/dL Creatinine 5.17 H 0.700-1.30 mg/dL Glomerular Filtration Rate Calc 10 >90 mL/min BUN/Creatinine Ratio 9.1 L 10.0-20.0 Serum Glucose 122 H 74-106 mg/dL Calcium Level 8.4 L 8.7-10.4 mg/dL Phosphorus Level 5.7 H 2.4-5.1 mg/dL Magnesium Level 2.3 1.6-2.6 mg/dL Total Bilirubin 0.5 0.2-1.0 mg/dL Aspartate Amino Transferase (AST) 27 13-40 U/L Alanine Aminotransferase (ALT) 25 7-40 U/L Alkaline Phosphatase 224 H 46-116 U/L Total Protein 5.6 L 5.7-8.2 g/dL Albumin 2.9 L 3.2-4.8 g/dL Vitamin B12 Level 775 211-911 pg/mL Vitamin D 25-Hydroxy 47.1 30.0-100 ng/mL Free Triiodothyronine (T3) pg/mL 1.47 L 2.3-4.2 pg/mL Random Vancomycin Level 17.5 H 5-10 ug/mL Troponin I High Sensitivity 8 </=54 ng/L Test 07/24/24 20:23 07/24/24 20:10 Range/Units Blood Gas Specimen Type Arterial Blood Gas Sample Site Right radial Blood Gas Patient Temperature 37.0 Arterial Blood Date Drawn Arterial Blood pH 7.433 7.350-7.450 Arterial Blood Partial Pressure CO2 25.0 L 35.0-48.0 mmHg Arterial Blood Partial Pressure O2 91.5 83.0-108.0 mmHg Arterial Blood HCO3 16.3 L 21.0-28.0 mmol/L Arterial Blood Oxygen Saturation 97.1 94.0-98.0 % Arterial Blood Base Excess -6.7 L -2.0-3.0 mmol/L Arterial Blood Oxyhemoglobin 96.1 94.0-98.0 % Arterial Blood Carboxyhemoglobin 0.4 L 0.5-1.5 % Arterial Blood Methemoglobin 0.6 0.0-1.5 % Garry Test Yes Blood Gas Total Hemoglobin 9.90 L 13.5-17.5 g/dL Blood Gas Liter Flow 3.00 Blood Gas Modality Nasal cannula FiO2 % 32.0 Eosinophils (%) (Auto) 3.8 0.0-7.0 % Eosinophils # (Auto) 0.4 0-0.8 10 ^3/uL Basophils # (Auto) 0 0-0.2 10 ^3/uL Nucleated Red Blood Cells 0.1 % Prothrombin Time 11.5 9.3-11.8 sec Prothrombin Time INR 1.09 0.9-1.15 Activated Partial Thromboplast Time 33.0 24.5-34.5 SEC Lactic Acid Level 1.0 0.4-2.0 mmol/L B-Type Natriuretic Peptide 497.64 0-100 pg/mL Assessment Impression: Acute on chronic hypoxic respiratory failure secondary to acute exacerbation COPD Acute exacerbation of COPD Aspiration pneumonia Acute exacerbation of CHF Acute kidney injury on chronic kidney disease History of CVA with left-sided weakness Dementia with possible aspiration Unstageable decubitus ulcer History of hypothyroidism Pleural effusion Atelectasis Anemia Metabolic acidosis Plan: Ultrasound venous Doppler bilateral lower extremities: No lower extremity DVT Awaiting ventilation perfusion scan. Chest x-ray imaging report reviewed: Trace bilateral pleural effusions. Atelectasis Consult IR for left thoracentesis. If not available, will assess in AM with Limited Chest US to evaluate if pleural effusions remain amenable for thoracentesis. Supplemental oxygen On 2 LPM via NC Keep o2 saturation above 92% IV steroids Bronchodilators IV antibiotics. Monitor Hgb Keep above 7.0 g/dL Currently 9.2 g/dL. Diurese to euvolemia Monitor ins/outs. Monitor renal function. Monitor electrolytes Supplement as necessary. DVT prophylaxis-Heparin s.c. Prognosis: Poor given multiple comorbidities. Rest of plan per hospitalist and other consultants. Thank you Dr. Zay Diaz for allowing me to participate in this patient's care. Further recommendations will depend on patient's clinical course. Please do not hesitate to contact me if you have any questions or concerns. This medical document was created using an electronic medical record system with [employer] system. Although this document has been carefully reviewed, there may still be some phonetic and typographical errors. These areas are purely typographical due to imperfections of the software programs, and do not reflect any compromise in the patient's medical care. Plan discussed with: Patient, Other (DANISH Crowder MD) TIFFANIE JIM MD Jul 25, 2024 19:22
[2024-07-26] VITALS (22 sets, daily range): BP systolic 104–152; BP diastolic 40–82; PULSE 66–88; RESP 18–20; TEMP 96.7–98.4; O2SAT 96–100
[2024-07-26] MEDS ORDERED: LEVO100T8 PO (01:54)
[2024-07-26] MEDS ORDERED: ATOR-47 PO (01:54)
[2024-07-26] MEDS ORDERED: HYDR1TAB97 PO (01:57)
[2024-07-26] MEDS ORDERED: CRAN450T PO (02:08)
[2024-07-26] MEDS ORDERED: [UNRECOGNIZED DRUG - CODE] PO (02:08)
[2024-07-26] MEDS ORDERED: ASPI1TAB20 PO (02:08)
[2024-07-26] MEDS ORDERED: ZOFR4T PO (02:08)
[2024-07-26] MEDS ORDERED: NITR0.4S29 SL (02:08)
[2024-07-26] MEDS ORDERED: IPRIH IN (02:08)
[2024-07-26] MEDS ORDERED: ZINC220T6 PO (02:08)
[2024-07-26] MEDS ORDERED: LACT1CAP14 PO (02:08)
[2024-07-26] MEDS ORDERED: DOCU-94 PO (02:08)
[2024-07-26] MEDS ORDERED: ALB2.5IS NEB (02:08)
[2024-07-26] MEDS ORDERED: ASCO500T11 PO (02:08)
[2024-07-26] MEDS ORDERED: ACET325T82 PO (02:08)
[2024-07-26 04:36] LABS: COVID19 ANTIGEN SOFIA FIA NEGATIVE (NEGATIVE)
[2024-07-26 05:35] LABS: Chloride 109 mmol/L (98-107); Potassium 5.2 mmol/L (3.5-5.1); Sodium 140 mmol/L (136-145)
[2024-07-26 05:36] LABS: Anion Gap 13 (5-15); Calcium 8.8 mg/dL (8.7-10.4); Carbon Dioxide 18 mmol/L (20-31)
[2024-07-26 05:41] LABS: BUN/Creatinine Ratio 9.5 (10.0-20.0); Blood Urea Nitrogen 59 mg/dL (9-23); Glucose 111 mg/dL (74-106)
[2024-07-26] MEDS: ALBUTEROL SULF 2.5 MG/0.5ML(0.5%) NEB SOLN NEB ONE (08:25)
--- NOTE | 2024-07-26 08:34 | DVHPNRES ---
Progress Note Date Seen: Jul 26, 2024 Resident Creating Document: FLAVIA BECKER RESIDENT Medical Necessity Reason Pt with a Central, PICC or Fol: No Subjective Review of Systems Junior Kim is a 84-year-old male patient who presents to ED via EMS from [facility] ([facility]) with chief complaint of progressive dyspnea days before his admission. Patient is a poor historian due to dementia, history of CVA and also is hard of hearing. Obtained review of system from EMR. Patient was recently discharged from hospital (one day prior to his new visit) with recent diagnosis of aspiration pneumonia and ELIZABET. Denies palpitation, syncope, chest pain, nausea, vomiting, diarrhea, constipation, bleeding, dysuria, recent travel, sick contacts and new motor or sensory deficits. Past medical history: Hypertension, dyslipidemia, diabetes, COPD with home oxygen requirement (2 liters/minute) history of CVA symptomatic by left-sided hemiplegia, dementia, hypothyroidism Surgical history: Denies Family history: Noncontributory Social history: Lives in skilled nursing. Denies current tobacco, alcohol and other drug abuse. Allergies: Denies Home medication: Not available in EMR Patient seen and examined at bedside. Patient currently has no complaints, except for difficulty hearing. Currently on nasal cannula 2 L/minute Objective vital signs Vital Sign Date Time Temp Pulse Resp B/P (MAP) Pulse Ox O2 Delivery O2 Flow Rate FiO2 07/26/24 07:24 74 20 99 07/26/24 07:22 Nasal Cannula 2.0 07/26/24 07:22 28 07/26/24 06:26 136/74 07/26/24 05:00 96.7 96.7 Total Intake and Output 07/25/24 07/25/24 07/26/24 15:00 23:00 07:00 Intake Total 125 ml 900 ml Balance 125 ml 900 ml medications Current Medications Medications Dose Ordered Sig/Alo Route Start Time Stop Time Status Last Admin Dose Admin Sodium Chloride 10 ml Q8HR IV 07/25/24 06:00 07/26/24 06:26 10 ML Acetaminophen/ Hydrocodone Bitart 1 tab Q4HP PRN PO 07/24/24 23:15 Ondansetron HCl 4 mg Q4HP PRN IV 07/24/24 23:15 07/25/24 02:14 4 MG Nitroglycerin 0.4 mg Q5MINP PRN SL 07/24/24 23:15 Morphine Sulfate 2 mg Q30M PRN IV 07/24/24 23:15 Levofloxacin/ Dextrose 100 ml @ 66.667 mls/ hr EOD IV 07/26/24 10:00 Methylprednisolone Sodium Succinate 40 mg BID IV 07/25/24 10:00 07/25/24 23:02 40 MG Levothyroxine Sodium 100 mcg DAILY PO 07/25/24 10:00 07/25/24 10:05 100 MCG Albuterol 2.5 mg Q4HR NEB 07/25/24 02:00 07/26/24 07:21 2.5 MG Ipratropium [place] 0.5 mg Q4HR NEB 07/25/24 02:00 07/26/24 07:21 0.5 MG Morphine Sulfate 2 mg Q4HPRN PRN IV 07/25/24 02:15 07/25/24 02:14 2 MG Heparin Sodium (Porcine) 5,000 units Q12HR SC 07/25/24 10:00 07/25/24 22:00 5,000 UNITS Doxycycline Hyclate 250 ml @ 125 mls/hr Q12H IV 07/25/24 06:15 07/26/24 06:26 125 MLS/HR Furosemide 40 mg BIDD IV 07/25/24 18:00 07/26/24 06:26 40 MG Zirconium Oxide 10 gm TID PO 07/26/24 08:00 07/28/24 07:59 Examination Patient lying in bed, in no acute distress General: Lucid, afebrile, mucosae are moist, gargling sounds in oral cavity Cardiovascular: Normal S1 and S2. No murmurs, gallops or rubs Respiratory: Regular ventilation mechanics. Diffuse bilateral rhonchus. On nasal cannula 2 liters/minute Abdomen: Soft, nontender, no organomegaly, normal bowel sounds MSK/skin: Mobilizes 4 limbs. Skin is dry and warm. Sacral decubitus ulcer stage II-III Neurological: Oriented in 3 spheres. Bronchial crural left-sided weakness no other motor no sensitive deficits. Pupils are isocoric and reactive laboratory and microbiology Laboratory Tests 07/26/24 05:01 07/25/24 05:03 Test 07/26/24 05:01 Range/Units Serum Glucose 111 H 74-106 mg/dL Problem List/Assessment/Plan Problem List/Assessment/Plan Assessment Acute respiratory failure Probable aspiration pneumonia COPD exacerbation Bilateral pleural effusion Probable cardiorenal syndrome type III Hypothyroidism History of CVA Dementia Ruled out bilateral lower limb DVT Sacral decubitus ulcer present on admission Ruled out pulmonary embolus Plan/Recommendation EKG shows sinus rhythm with multiple PACs, no ST alteration. Troponin negative, BNP 497. Creatinine level 5.17 (in previous admission was 1.79) While completing kidney ultrasound, incidentally observed bilateral pleural effusion. We will evaluate need for thoracocentesis. Completed echocardiogram: LVEF 55%, grade 1 diastolic dysfunction, rest of echocardiogram within normal limits. Patient is currently on IV diuretics (furosemide 40 mg IV b.i.d.). Optimize loading conditions Nephrology evaluation appreciated V/Q scan low probability of PE Discussed plan with Dr. Lilly, patient and nurses: Patient has multiple causes of dyspnea, at this point we recommend echocardiogram. Chest ultrasound was ordered for eventual thoracocentesis, nephrology evaluation is appreciated, treatment for aspiration pneumonia and probable COPD exacerbation per hospitalist. Patient has poor prognosis, suggest discussion of goals of care with family (patient currently lives in nursing facility). No further cardiological workup required during this admission. We will sign off case. Please reconsult if needed, thank you. Plan discussed with: Patient, Other (Nurses) My Orders My Orders Orders - FLAVIA BECKER RESIDENT Procedure Category Date Status Time Free T3 LAB 07/25/24 In Process 10:27 Free T4 (Free LAB 07/25/24 In Process Thyroxine) 10:27 Drug Screen LAB 07/25/24 Logged 10:27 Vitamin B12 LAB 07/25/24 In Process 10:27 Cleanse Wound With PAMELA 07/25/24 In Process Wound Clean 18:26 Cover Wound With Foam PAMELA 07/25/24 In Process Dressing 18:26 Apply Z-Guard PAMELA 07/25/24 In Process 18:26 * Dietary Consult CONS 07/25/24 Transmitted 18:29 Visit Coding Cardiology RES Date of Service: Jul 26, 2024 Billing Provider: PAUL LILLY MD Cardiology Common Codes: [id number] HOSP CARE(High, [id number] CARE 30-74 MIN FLAVIA BECKER RESIDENT Jul 26, 2024 08:34
--- NOTE | 2024-07-26 09:23 | DVHPN2 ---
Reviewed: Care Plan, H&P, Labs, Medications, Previous Orders, Radiology Changes from previous H/P or p: No Changes Eyes: No Pain, No Vision change, No Conjunctivae inflammation, No Eyelid inflammation, No Other, No Redness ENT: No Ear pain, No Ear discharge, No Nose pain, No Nose discharge, No Nose congestion, No Mouth pain, No Mouth swelling, No Throat pain, No Throat swelling, No Other Cardiovascular: No Chest Pain, No Palpitations, No Orthopnea, No Paroxysmal Noc. Dyspnea, No Edema, No Lt Headedness, No Other Respiratory: Cough, Shortness of breath, Sputum Gastrointestinal: No Nausea, No Vomiting, No Abdominal Pain, No Diarrhea, No Constipation, No Melena, No Hematochezia, No Other Genitourinary: No Dysuria, No Frequency, No Incontinence, No Hematuria, No Retention, No Other Musculoskeletal: No other, No neck pain, No shoulder pain, No arm pain, No back pain, No hand pain, No leg pain, No foot pain Skin: No Rash, No Lesions, No Jaundice, No Bruising, No Other Objective Vitals Vital Signs Date Time Temp Pulse Resp B/P (MAP) Pulse Ox O2 Delivery O2 Flow Rate FiO2 07/26/24 08:35 88 20 100 07/26/24 08:31 97.9 152/79 (103) 97.9 07/26/24 07:22 Nasal Cannula 2.0 07/26/24 07:22 28 Intake/Output Intake and Output 07/26/24 07:00 Intake Total 1025 ml Balance 1025 ml Intake Oral 900 ml IV Total 125 ml # Voids 2 # Bowel Movements 2 Medications Current Medications Medications Dose Ordered Sig/Alo Route Start Time Stop Time Status Last Admin Dose Admin Sodium Chloride 10 ml Q8HR IV 07/25/24 06:00 07/26/24 06:26 10 ML Acetaminophen/ Hydrocodone Bitart 1 tab Q4HP PRN PO 07/24/24 23:15 Ondansetron HCl 4 mg Q4HP PRN IV 07/24/24 23:15 07/25/24 02:14 4 MG Nitroglycerin 0.4 mg Q5MINP PRN SL 07/24/24 23:15 Morphine Sulfate 2 mg Q30M PRN IV 07/24/24 23:15 Levofloxacin/ Dextrose 100 ml @ 66.667 mls/ hr EOD IV 07/26/24 10:00 Methylprednisolone Sodium Succinate 40 mg BID IV 07/25/24 10:00 07/25/24 23:02 40 MG Levothyroxine Sodium 100 mcg DAILY PO 07/25/24 10:00 07/25/24 10:05 100 MCG Albuterol 2.5 mg Q4HR NEB 07/25/24 02:00 07/26/24 07:21 2.5 MG Ipratropium [place] 0.5 mg Q4HR NEB 07/25/24 02:00 07/26/24 07:21 0.5 MG Morphine Sulfate 2 mg Q4HPRN PRN IV 07/25/24 02:15 07/25/24 02:14 2 MG Heparin Sodium (Porcine) 5,000 units Q12HR SC 07/25/24 10:00 07/25/24 22:00 5,000 UNITS Doxycycline Hyclate 250 ml @ 125 mls/hr Q12H IV 07/25/24 06:15 07/26/24 06:26 125 MLS/HR Furosemide 40 mg BIDD IV 07/25/24 18:00 07/26/24 06:26 40 MG Zirconium Oxide 10 gm TID PO 07/26/24 08:00 07/28/24 07:59 Laboratory Results Laboratory Tests 07/25/24 05:03 07/26/24 05:01 Chemistry Test 07/26/24 05:01 Calcium Level 8.8 mg/dL (8.7-10.4) Labs and/or images reviewed: Labs reviewed by me, Image(s) reviewed by me Assessment/Plan Assessment/Plan Acute on chronic hypoxic respiratory failure: Oxygen by nasal cannula, ABG normal Acute COPD exacerbation: Albuterol Atrovent Solu-Medrol, consult for pulmonology Dr. Sandy Possible community-acquired aspiration pneumonia: Doxycycline Levaquin Possible CHF exacerbation with BNP in the range of 500: Echocardiogram 55 percent ejection fraction consult for otolaryngologist Dr. Thayer appreciated ELIZABET on CKD: BUN creatinine 47 and 5.17, consult for Nephrology appreciated, started on Lokelma Vancomycin induced nephrotoxicity vanco levels were 17.5, avoid nephrotoxic medications Dementia History of CVA with left-sided hemiplegia Multiple unstageable decubitus ulcer of the sacrum: Wound consult Hypothyroidism Elevated D-dimer 2.57 DVT ruled out V/Q scan pending Condition guarded Moderate malnutrition History of prolonged hospitalization for three-month at [place] recently Superficial excoriation of the left hand: Bactroban ointment Time spent 55 minutes Patient is full code Advanced care planning time 20 minutes Patient was discharged from this hospital two days ago to [facility] and was brought back for shortness of breath Plan discussed with: Patient My Orders Orders - KATLYN GUTIERREZ MD Procedure Category Date Status Time *Consult CONS 07/25/24 Transmitted / 10:07 * Cardiology Consult CONS 07/25/24 Transmitted 10:09 Furosemide Injection PHA 07/25/24 In Process (Lasix Injection) 18:00 Nm Vq Scan NM 07/25/24 Taken 10:13 Mrsa Screen TAINA 07/26/24 In Process 02:28 Date of Service: Jul 26, 2024 Billing Provider: KATLYN GUTIERREZ MD Common Visit Codes: [id number] INP/OBS CARE(HIGH) KATLYN GUTIERREZ MD Jul 26, 2024 09:22
[2024-07-26] MEDS: levoFLOXacin 500MG 100 ML IV SCH (09:57)
[2024-07-26] MEDS ORDERED: MUPIROCIN 2% OINT 15gm or 22gm TOP SCH (10:00)
--- NOTE | 2024-07-26 10:01 | DVH ---
CLINICAL INFORMATION: 89 , Male; R/O PULMONARY EMBOLISM. TECHNIQUE: 9 mCi of Xenon-133 gas was used for the ventilation portion of the exam. Posterior ventil ation imaging was obtained. 5 mCi of technetium 99m MAA was used for the perfusion portion of the exa m. Imaging was obtained in multiple planes of projection. COMPARISON: Same day chest radiograph. FINDINGS: There is normal perfusion and ventilation in the right lung with no perfusion defect to sug gest pulmonary embolism. There is diffusely decreased ventilation and perfusion throughout the left l elias, may be partly due to pleural effusion and atelectasis in the left lung when correlated with rece nt radiographs. IMPRESSION: Findings are consistent with low probability of pulmonary embolism as described above. Diffusely dimi nished ventilation and perfusion in the left lung may be due to pleural effusion and atelectasis when correlated with recent radiographs. Correlate with clinical findings. Normal perfusion and ventilat ion in the right lung.
--- NOTE | 2024-07-26 10:29 | DVH ---
CHEST RADIOGRAPH Indication:aspiration ppnemonia, pleural effusion Technique: Single frontal view of the chest was obtained Comparison: XY CHEST PORTABLE on DOS: 07/24/24, XY CHEST PORTABLE on DOS: 07/19/24 FINDINGS: Lines and Tubes: None Lungs: Small left basilar opacity. Pleura: Small left pleural effusion. No pneumothorax. Cardiomediastinal contours: Unremarkable Bones: No acute osseous abnormality. IMPRESSION: Small left pleural effusion. Small left basilar opacity.
[2024-07-26 11:24] LABS: Free T4 (Free Thyroxine) 0.98 ng/dL (0.89-1.76)
[2024-07-26] MEDS: SODIUM ZIRCONIUM CYCL 10 GM PAK PO SCH (11:34)
[2024-07-26] MEDS: DEXTROSE (50%) 50ML SYRG IV ONE (11:34)
[2024-07-26 11:41] LABS: Rapid Influenza A Negative (Negative); Rapid Influenza B Negative (Negative)
[2024-07-26] MEDS: InsuLIN REG 1unit/0.01ml Soln (100units/ml) IV ONE (11:46)
--- NOTE | 2024-07-26 14:20 | MEDREC ---
[facility] ASP Intervention Section I [facility] ASP Intervention: Duplication of therapy (DOXYCYCLINE AND LEVOFLOXACIN ARE BOTH INDICATED TO TREAT PNEUMONIA AND COPD EXACERBATION. PLEASE CONSIDER DISCONTINUE ONE OF THE ANTIBIOTICS DUE TO DUPLICATION, UNLESS THERE ARE CONCERNS FOR OTHER TYPES OF INFECTION) GIFTY BAXTER Jul 26, 2024 14:20
[2024-07-26] MEDS: MUPIROCIN 2% OINT 15gm or 22gm TOP SCH (14:26)
[2024-07-26] MEDS: CALCIUM GLUC 1,000mg/50ml-NS 50 ML IV ONE (14:26)
--- NOTE | 2024-07-26 14:47 | DVHPN2 ---
Progress Note - Dictate Date Seen: Jul 26, 2024 Medical Necessity Reason Pt with a Central, PICC or Fol: No vital signs Vital Sign Date Time Temp Pulse Resp B/P (MAP) Pulse Ox O2 Delivery O2 Flow Rate FiO2 07/26/24 12:39 98.0 68 18 142/82 (102) 96 98.0 07/26/24 10:00 Nasal Cannula* 2 28 Total Intake and Output 07/25/24 07/25/24 07/26/24 15:00 23:00 07:00 Intake Total 125 ml 900 ml Balance 125 ml 900 ml medications Current Medications Medications Dose Ordered Sig/Alo Route Start Time Stop Time Status Last Admin Dose Admin Sodium Chloride 10 ml Q8HR IV 07/25/24 06:00 07/26/24 14:41 10 ML Acetaminophen/ Hydrocodone Bitart 1 tab Q4HP PRN PO 07/24/24 23:15 Ondansetron HCl 4 mg Q4HP PRN IV 07/24/24 23:15 07/25/24 02:14 4 MG Nitroglycerin 0.4 mg Q5MINP PRN SL 07/24/24 23:15 Morphine Sulfate 2 mg Q30M PRN IV 07/24/24 23:15 Levofloxacin/ Dextrose 100 ml @ 66.667 mls/ hr EOD IV 07/26/24 10:00 07/26/24 09:57 66.667 MLS/HR Methylprednisolone Sodium Succinate 40 mg BID IV 07/25/24 10:00 07/26/24 10:19 40 MG Levothyroxine Sodium 100 mcg DAILY PO 07/25/24 10:00 07/26/24 09:57 100 MCG Albuterol 2.5 mg Q4HR NEB 07/25/24 02:00 07/26/24 11:15 2.5 MG Ipratropium [place] 0.5 mg Q4HR NEB 07/25/24 02:00 07/26/24 11:15 0.5 MG Morphine Sulfate 2 mg Q4HPRN PRN IV 07/25/24 02:15 07/25/24 02:14 2 MG Heparin Sodium (Porcine) 5,000 units Q12HR SC 07/25/24 10:00 07/26/24 10:19 5,000 UNITS Doxycycline Hyclate 250 ml @ 125 mls/hr Q12H IV 07/25/24 06:15 11/14/24 06:26 125 MLS/HR Furosemide 40 mg BIDD IV 07/25/24 18:00 07/26/24 06:26 40 MG Zirconium Oxide 10 gm TID PO 07/26/24 08:00 07/28/24 07:59 07/26/24 11:34 10 GM Mupirocin 1 applic BID TOP 07/26/24 10:00 07/26/24 14:26 1 APPLIC Acetylcysteine 200 mg Q8HR NEB 07/26/24 14:00 07/29/24 13:59 objective Elderly white male Appears stated age Ill-appearing Slurred speech with left facial droop Contracted left arm Without decrease weakness in the right left lower extremity Abdomen is soft No pitting edema laboratory and microbiology Laboratory Tests 07/26/24 05:01 07/25/24 05:03 Test 07/26/24 05:01 Range/Units Serum Glucose 111 H 74-106 mg/dL Assessment/Plan Acute kidney injury concerning for ATN suspect vancotoxicity Chronic kidney disease stage 3 Diabetes Stroke with left residual weakness /deficit Hypertension Pleural effusions Sepsis with recent treatment of pneumonia and decubitus ulcers hyperkalemia vanco level 48 hours after DC was noted to be 17 which indicates likely had supratherapeutic level Avoid further nephrotoxic drugs Avoid contrast studies echo diastolic HF Ultrasound of the kidney shows nonobstructing kidney stone Recommended to strict Is&Os , place white today P.o. nutrition recommend IVF and diuretic combination to increase urinary flow and excretion guarded prognosis, high risk of needing HD Plan discussed with: Patient ELEAZAR DAVIS MD Jul 26, 2024 14:47
[2024-07-26] MEDS: ACETYLCYSTEINE 20%(200MG/ML) SOL 4ML NEB SCH (15:46)
[2024-07-26 18:27] LABS: Sodium Urine 22 mmol/L (40-220)
[2024-07-26] MEDS: SODIUM BICARB 50mEq/50ml SYR 75 ML in SOD CHL 0.45% 1,000 ML IV SCH (18:32)
[2024-07-26 18:34] LABS: Amphetamine Screen, Urine Neg (NEGATIVE); Barbiturate Scree,Urine Neg (NEGATIVE); Benzodiazephine Screen, Urine Neg (NEGATIVE); Cocaine Screen, Urine Neg (NEGATIVE); Opiate Scree,Urine Pos (NEGATIVE)
[2024-07-26 18:35] LABS: Cannabinoid Screen, Urine Neg (NEGATIVE); Creatinine, Urine 129.65 mg/dL (30.0-125.0); Phencyclidine Screen, Urine Neg (NEGATIVE)
--- NOTE | 2024-07-26 18:35 | DVHPN2 ---
Progress Note - Dictate Date Seen: Jul 26, 2024 Medical Necessity Reason Pt with a Central, PICC or Fol: No Subjective Patient seen and examined at bedside. Remains on supplemental oxygen Overnight events reviewed vital signs Vital Sign Date Time Temp Pulse Resp B/P (MAP) Pulse Ox O2 Delivery O2 Flow Rate FiO2 07/26/24 18:02 80 20 100 07/26/24 16:01 97.4 114/40 (64) 97.4 07/26/24 10:00 Nasal Cannula* 2 28 Total Intake and Output 07/25/24 07/25/24 07/26/24 15:00 23:00 07:00 Intake Total 125 ml 900 ml Balance 125 ml 900 ml medications Current Medications Medications Dose Ordered Sig/Alo Route Start Time Stop Time Status Last Admin Dose Admin Sodium Chloride 10 ml Q8HR IV 07/25/24 06:00 07/26/24 14:41 10 ML Acetaminophen/ Hydrocodone Bitart 1 tab Q4HP PRN PO 07/24/24 23:15 Ondansetron HCl 4 mg Q4HP PRN IV 07/24/24 23:15 07/25/24 02:14 4 MG Nitroglycerin 0.4 mg Q5MINP PRN SL 07/24/24 23:15 Morphine Sulfate 2 mg Q30M PRN IV 07/24/24 23:15 Levofloxacin/ Dextrose 100 ml @ 66.667 mls/ hr EOD IV 07/26/24 10:00 07/26/24 09:57 66.667 MLS/HR Methylprednisolone Sodium Succinate 40 mg BID IV 07/25/24 10:00 07/26/24 10:19 40 MG Levothyroxine Sodium 100 mcg DAILY PO 07/25/24 10:00 07/26/24 09:57 100 MCG Albuterol 2.5 mg Q4HR NEB 07/25/24 02:00 07/26/24 18:01 2.5 MG Ipratropium [place] 0.5 mg Q4HR NEB 07/25/24 02:00 07/26/24 18:01 0.5 MG Morphine Sulfate 2 mg Q4HPRN PRN IV 07/25/24 02:15 07/25/24 02:14 2 MG Heparin Sodium (Porcine) 5,000 units Q12HR SC 07/25/24 10:00 07/26/24 10:19 5,000 UNITS Doxycycline Hyclate 250 ml @ 125 mls/hr Q12H IV 07/25/24 06:15 07/26/24 06:26 125 MLS/HR Furosemide 40 mg BIDD IV 07/25/24 18:00 07/26/24 06:26 40 MG Zirconium Oxide 10 gm TID PO 07/26/24 08:00 07/28/24 07:59 07/26/24 11:34 10 GM Mupirocin 1 applic BID TOP 07/26/24 10:00 07/26/24 14:26 1 APPLIC Acetylcysteine 200 mg Q8HR NEB 07/26/24 14:00 07/29/24 13:59 07/26/24 15:46 200 MG Sodium Bicarbonate 75 ml/ Sodium Chloride 1,075 ml @ 75 mls/hr [id number] IV 07/26/24 14:45 objective Gen.: Patient lying in bed in no apparent distress. On supplemental oxygen Head: Normocephalic, atraumatic. Eyes: EOMI/PERRLA. Ears: Normal hearing. Normal anatomy. Neck/trachea: Trachea midline, supple. Nose: Normal external anatomy. Mouth: Moist mucous membranes. Chest: Decreased air entry bilaterally. Bilateral wheezing. No rhonchi. Cardiovascular: Positive S1, positive S2. Regular rate and rhythm. Abdomen: Positive bowel sounds in all 4 quadrants. Soft, non-tender, non- distended. : Deferred. Rectal: Deferred. Skin: Warm, dry. Intact. Extremities: 2+ radial pulses bilaterally. No lower extremity edema. Neuro: Awake, alert, oriented x3. No gross motor or sensory deficits. Cranial nerves II through XII intact. Gait not assessed. laboratory and microbiology Laboratory Tests 07/26/24 05:01 07/25/24 05:03 Test 07/26/24 05:01 Range/Units Serum Glucose 111 H 74-106 mg/dL Assessment/Plan Impression: Acute on chronic hypoxic respiratory failure secondary to acute exacerbation COPD Acute exacerbation of COPD Aspiration pneumonia Acute exacerbation of CHF Acute kidney injury on chronic kidney disease History of CVA with left-sided weakness Dementia with possible aspiration Unstageable decubitus ulcer History of hypothyroidism Pleural effusion Atelectasis Anemia Metabolic acidosis Events: Remains on supplemental oxygen On 2 LPM via NC Taper O2 as tolerated Continue bronchodilators Continue antibiotics - levofloxacin and doxycycline Continue IV steroids Patient continues to wheeze. Start Mucomyst to aid with expectoration CPT. Limited chest ultrasound showed not enough fluid to drain - trace to small left pleural effusion. Diurese w/ Lasix 40 mg IVP BID. CXR reviewed, demonstrated improved aeration; pulmonary vascular congestion persists. Wound care Monitor renal function Labs and imaging reviewed. Rest of plan as noted below. Plan: Ultrasound venous Doppler bilateral lower extremities: No lower extremity DVT. Ventilation perfusion scan showed low probability of pulmonary embolism. Chest x-ray imaging report reviewed: Trace bilateral pleural effusions. Atelectasis Limited chest ultrasound showed not enough fluid to drain - trace to small left pleural effusion. Supplemental oxygen On 2 LPM via NC Keep o2 saturation above 92% IV steroids Bronchodilators IV antibiotics. Monitor Hgb Keep above 7.0 g/dL Diurese to euvolemia Monitor ins/outs. Monitor renal function. Monitor electrolytes Supplement as necessary. DVT prophylaxis-Heparin s.c. Prognosis: Poor given multiple comorbidities. Rest of plan per hospitalist and other consultants. Thank you Dr. Zay Diaz for allowing me to participate in this patient's care. Further recommendations will depend on patient's clinical course. Please do not hesitate to contact me if you have any questions or concerns. This medical document was created using an electronic medical record system with [employer] dictation system. Although this document has been carefully reviewed, there may still be some phonetic and typographical errors. These areas are purely typographical due to imperfections of the software programs, and do not reflect any compromise in the patient's medical care. Dietary Evaluation Review Comments: 1) Consider EN nutrition Jevity 1.2 @ 60 ml/hr goal rate 2) Advance pt diet when medically feasible to a Cardiac diet, modified per COLD ROLLING MACHINE SETTER recommendations 3) If pt remains NPO >7 days consider TPN to meet at least 75% of estimated needs 4) Continue current plan of care Expected Outcomes/Goals: 1) Pt to receive adequate nutrition support 2) Pt diet to advance 3) F/U in 2-3 days Plan discussed with: Patient, Other (DANISH Mendez) TIFFANIE JIM MD Jul 26, 2024 18:35
[2024-07-26 18:38] LABS: Protein, Urine 412.8 mg/dL (1-14)
[2024-07-26 18:40] LABS: Urine Amorphous Crystal FEW /hpf (None Seen); Urine Bacteria FEW /hpf (None Seen); Urine Blood 2+ /uL (Negative); Urine Clarity Ex.Turbid (Clear); Urine Color Light-Orange (Yellow); Urine Mucus FEW (None Seen); Urine Protein, UAD 3+ (Negative); Urine Specific Gravity 1.027 (1.001-1.035); Urine Urobilinogen Normal (Negative); Urine WBC 22 /hpf (0 - 3); Urine WBC Clumps PRESENT /hpf (None Seen); Urine pH 5.5 (5.0-9.0)
[2024-07-27] VITALS (22 sets, daily range): BP systolic 118–147; BP diastolic 51–73; PULSE 70–87; RESP 16–20; TEMP 97.3–98.8; O2SAT 95–100
[2024-07-27 06:46] LABS: Chloride 108 mmol/L (98-107); Potassium 5.2 mmol/L (3.5-5.1); Sodium 141 mmol/L (136-145)
[2024-07-27 06:47] LABS: Anion Gap 15 (5-15); Calcium 8.9 mg/dL (8.7-10.4); Carbon Dioxide 18 mmol/L (20-31)
[2024-07-27 06:52] LABS: BUN/Creatinine Ratio 9.6 (10.0-20.0); Glucose 106 mg/dL (74-106)
[2024-07-27 06:54] LABS: Blood Urea Nitrogen 72 mg/dL (9-23)
--- NOTE | 2024-07-27 09:48 | DVHPN2 ---
Reviewed: Care Plan, H&P, Labs, Medications, Previous Orders, Radiology Changes from previous H/P or p: No Changes Eyes: No Pain, No Vision change, No Conjunctivae inflammation, No Eyelid inflammation, No Other, No Redness ENT: No Ear pain, No Ear discharge, No Nose pain, No Nose discharge, No Nose congestion, No Mouth pain, No Mouth swelling, No Throat pain, No Throat swelling, No Other Cardiovascular: No Chest Pain, No Palpitations, No Orthopnea, No Paroxysmal Noc. Dyspnea, No Edema, No Lt Headedness, No Other Respiratory: Cough, Shortness of breath, Sputum Gastrointestinal: No Nausea, No Vomiting, No Abdominal Pain, No Diarrhea, No Constipation, No Melena, No Hematochezia, No Other Genitourinary: No Dysuria, No Frequency, No Incontinence, No Hematuria, No Retention, No Other Musculoskeletal: No other, No neck pain, No shoulder pain, No arm pain, No back pain, No hand pain, No leg pain, No foot pain Skin: No Rash, No Lesions, No Jaundice, No Bruising, No Other Objective Vitals Vital Signs Date Time Temp Pulse Resp B/P (MAP) Pulse Ox O2 Delivery O2 Flow Rate FiO2 07/27/24 07:15 78 18 100 07/27/24 07:08 Nasal Cannula 2.0 07/27/24 07:08 28 07/27/24 06:21 142/71 07/27/24 05:00 98.8 98.8 Intake/Output Intake and Output 07/27/24 07:00 Intake Total 500 ml Output Total 0 ml Balance 500 ml Intake Oral 250 ml IV Total 250 ml Output Urine Total 0 ml # Bowel Movements 3 Medications Current Medications Medications Dose Ordered Sig/Alo Route Start Time Stop Time Status Last Admin Dose Admin Sodium Chloride 10 ml Q8HR IV 07/25/24 06:00 07/27/24 06:21 10 ML Acetaminophen/ Hydrocodone Bitart 1 tab Q4HP PRN PO 07/24/24 23:15 Ondansetron HCl 4 mg Q4HP PRN IV 07/24/24 23:15 07/25/24 02:14 4 MG Nitroglycerin 0.4 mg Q5MINP PRN SL 07/24/24 23:15 Morphine Sulfate 2 mg Q30M PRN IV 07/24/24 23:15 Levofloxacin/ Dextrose 100 ml @ 66.667 mls/ hr EOD IV 07/26/24 10:00 07/26/24 09:57 66.667 MLS/HR Methylprednisolone Sodium Succinate 40 mg BID IV 07/25/24 10:00 07/26/24 22:15 40 MG Levothyroxine Sodium 100 mcg DAILY PO 07/25/24 10:00 07/26/24 09:57 100 MCG Albuterol 2.5 mg Q4HR NEB 07/25/24 02:00 07/27/24 07:08 2.5 MG Ipratropium [place] 0.5 mg Q4HR NEB 07/25/24 02:00 07/27/24 07:08 0.5 MG Morphine Sulfate 2 mg Q4HPRN PRN IV 07/25/24 02:15 07/25/24 02:14 2 MG Heparin Sodium (Porcine) 5,000 units Q12HR SC 07/25/24 10:00 07/26/24 22:40 5,000 UNITS Doxycycline Hyclate 250 ml @ 125 mls/hr Q12H IV 07/25/24 06:15 07/27/24 06:21 125 MLS/HR Furosemide 40 mg BIDD IV 07/25/24 18:00 07/27/24 06:21 40 MG Zirconium Oxide 10 gm TID PO 07/26/24 08:00 07/28/24 07:59 07/27/24 06:20 10 GM Mupirocin 1 applic BID TOP 07/26/24 10:00 07/26/24 22:27 1 APPLIC Acetylcysteine 200 mg Q8HR NEB 07/26/24 14:00 07/29/24 13:59 07/27/24 07:08 200 MG Sodium Bicarbonate 75 ml/ Sodium Chloride 1,075 ml @ 75 mls/hr [id number] IV 07/26/24 14:45 07/26/24 18:32 75 MLS/HR Atorvastatin Calcium 20 mg HS PO 07/27/24 22:00 Laboratory Results Laboratory Tests 07/25/24 05:03 07/27/24 05:45 Chemistry Test 07/27/24 05:45 Calcium Level 8.9 mg/dL (8.7-10.4) Urinalysis Test 07/26/24 14:19 Urine Color Light-orange (Yellow) Urine Clarity Ex.turbid (Clear) Urine pH 5.5 (5.0-9.0) Urine Specific [place] 1.027 (1.001-1.035) Urine Protein 3+ (Negative) H Urine Ketones Trace (Negative) Urine Blood 2+ /uL (Negative) H Urine Nitrite Negative (Negative) Urine Bilirubin Negative (Negative) Urine Urobilinogen Normal mg/dL (Negative) Urine Leukocyte Esterase Negative /uL (Negative) Urine RBC 93 /hpf (0 - 3) Urine WBC 22 /hpf (0 - 3) Urine WBC Clumps Present /hpf (None Seen) Urine Squamous Epithelial Cells None seen /hpf (<5) Urine Amorphous Crystals Few /hpf (None Seen) Urine Bacteria Few /hpf (None Seen) H Urine Mucus Few (None Seen) Urine Osmolality 342 mOsm/kg Urine Creatinine 129.65 mg/dL (30.0-125.0) H Urine Sodium 22 mmol/L (40-220) L Urine Potassium 67 mmol/L (12-62) H Urine Glucose Trace mg/dL (Normal) Urine Total Protein 412.8 mg/dL (1-14) H Microbiology Microbiology Date/Time Source Procedure Growth Status 07/26/24 02:28 Nose MRSA Screen - Final Complete Labs and/or images reviewed: Labs reviewed by me, Image(s) reviewed by me Assessment/Plan Assessment/Plan Acute on chronic hypoxic respiratory failure: Oxygen by nasal cannula, ABG normal Acute COPD exacerbation: Albuterol Atrovent Solu-Medrol, consult for pulmonology Dr. Sandy appreciated Possible community-acquired aspiration pneumonia: Doxycycline Levaquin Possible CHF exacerbation with BNP in the range of 500: Echocardiogram 55 percent ejection fraction consult for director of midwifery/staff midwife Dr. Thayer appreciated ELIZABET on CKD: BUN creatinine 47 and 5.17, which has been worsening, consult for Nephrology appreciated, started on Lokelma, on IV fluids and Lasix Vancomycin induced nephrotoxicity vanco levels were 17.5, avoid nephrotoxic medications Dementia History of CVA with left-sided hemiplegia Multiple unstageable decubitus ulcer of the sacrum: Wound consult Hypothyroidism Elevated D-dimer 2.57 DVT ruled out PE ruled out Condition guarded Moderate malnutrition History of prolonged hospitalization for three-month at [facility] recently Superficial excoriation of the left hand: Bactroban ointment Time spent 55 minutes Patient is full code Advanced care planning time 20 minutes General condition very poor Patient was discharged from this hospital two days ago to [facility] and was brought back for shortness of breath Spoke to patient's brother and JACOB Moreno and I advised that the patient might need emergency dialysis if his kidney function does not improve. Plan discussed with: Patient My Orders Orders - KATLYN GUTIERREZ MD Procedure Category Date Status Time * Swallow Request ST 07/26/24 Transmitted 09:44 Soft Diet DIET 07/26/24 Transmitted Lunch C-Diff: Collect Next PAMELA 07/26/24 In Process Specimen 10:59 Pureed DIET 07/26/24 Transmitted Dinner Clostridium Difficile TAINA 07/26/24 In Process Toxin 17:29 Date of Service: Jul 27, 2024 Billing Provider: KATLYN GUTIERREZ MD Common Visit Codes: 86008-[id number] INP/OBS CARE(HIGH) Secondary Visit Codes: 63211-[id number] CARE PLAN 30 MINUTES KATLYN GUTIERREZ MD Jul 27, 2024 09:48
[2024-07-27] MEDS ORDERED: GABA-1250 PO (09:54)
[2024-07-27] MEDS ORDERED: LOSA-533 PO (09:54)
--- NOTE | 2024-07-27 12:43 | DVH ---
Upper Extremity Venous Duplex Clinical History: R/O LT ARM DVT Comparison: US BILAT LOWER DVT on DOS: 07/25/24 Technique: Duplex Doppler evaluation of the venous system of the left lower neck and upper extremity including c olor Doppler and spectral/pulsed waveform analysis was performed. Findings: The internal jugular vein demonstrates appropriate compressibility and waveform variability . The subclavian vein is patent on color Doppler evaluation without intraluminal thrombus and demonstra pepe waveform variability . The visualized portion of the brachiocephalic vein is patent on color Doppler evaluation without intr aluminal thrombus and demonstrates waveform variability . The axillary vein demonstrates appropriate compressibility and waveform variability . The brachial veins demonstrate appropriate compressibility and patency on Doppler evaluation. Color flow noted in the Doppler images in the radial and ulnar veins. The basilic vein demonstrates appropriate compressibility and patency on Doppler evaluation. The cephalic vein demonstrates lack of compressibility and patency on Doppler evaluation. Impression: 1. Acute occlusive thrombophlebitis of the left cephalic vein. 2. No venous thrombus identified in the left upper extremity vessels evaluated above.
--- NOTE | 2024-07-27 14:49 | DVHPN2 ---
Progress Note - Dictate Date Seen: Jul 27, 2024 Medical Necessity Reason Pt with a Central, PICC or Fol: No vital signs Vital Sign Date Time Temp Pulse Resp B/P (MAP) Pulse Ox O2 Delivery O2 Flow Rate FiO2 07/27/24 12:59 97.3 79 18 118/64 (82) 100 97.3 07/27/24 11:19 Nasal Cannula* 2 28 Total Intake and Output 07/26/24 07/26/24 07/27/24 15:00 23:00 07:00 Intake Total 250 ml 250 ml Output Total 0 ml Balance 250 ml 250 ml medications Current Medications Medications Dose Ordered Sig/Alo Route Start Time Stop Time Status Last Admin Dose Admin Sodium Chloride 10 ml Q8HR IV 07/25/24 06:00 07/27/24 06:21 10 ML Acetaminophen/ Hydrocodone Bitart 1 tab Q4HP PRN PO 07/24/24 23:15 Ondansetron HCl 4 mg Q4HP PRN IV 07/24/24 23:15 07/25/24 02:14 4 MG Nitroglycerin 0.4 mg Q5MINP PRN SL 07/24/24 23:15 Morphine Sulfate 2 mg Q30M PRN IV 07/24/24 23:15 Levofloxacin/ Dextrose 100 ml @ 66.667 mls/ hr EOD IV 07/26/24 10:00 07/26/24 09:57 66.667 MLS/HR Methylprednisolone Sodium Succinate 40 mg BID IV 07/25/24 10:00 07/26/24 22:15 40 MG Levothyroxine Sodium 100 mcg DAILY PO 07/25/24 10:00 07/27/24 11:01 100 MCG Albuterol 2.5 mg Q4HR NEB 07/25/24 02:00 07/27/24 11:19 2.5 MG Ipratropium [place] 0.5 mg Q4HR NEB 07/25/24 02:00 07/27/24 11:19 0.5 MG Morphine Sulfate 2 mg Q4HPRN PRN IV 07/25/24 02:15 07/25/24 02:14 2 MG Heparin Sodium (Porcine) 5,000 units Q12HR SC 07/25/24 10:00 07/27/24 11:05 5,000 UNITS Doxycycline Hyclate 250 ml @ 125 mls/hr Q12H IV 07/25/24 06:15 07/27/24 06:21 125 MLS/HR Furosemide 40 mg BIDD IV 07/25/24 18:00 07/27/24 06:21 40 MG Zirconium Oxide 10 gm TID PO 07/26/24 08:00 07/28/24 07:59 07/27/24 06:20 10 GM Mupirocin 1 applic BID TOP 07/26/24 10:00 07/27/24 11:06 1 APPLIC Acetylcysteine 200 mg Q8HR NEB 07/26/24 14:00 07/29/24 13:59 07/27/24 07:08 200 MG Sodium Bicarbonate 75 ml/ Sodium Chloride 1,075 ml @ 75 mls/hr [id number] IV 07/26/24 14:45 07/26/24 18:32 75 MLS/HR Atorvastatin Calcium 20 mg HS PO 07/27/24 22:00 Metronidazole 100 ml @ 100 mls/hr Q8HR IV 07/27/24 22:00 UNV Vancomycin HCl 125 mg QID PO 07/27/24 18:00 UNV objective Elderly white male Appears stated age Ill-appearing Slurred speech with left facial droop Contracted left arm Without decrease weakness in the right left lower extremity Abdomen is soft No pitting edema laboratory and microbiology Laboratory Tests 07/27/24 05:45 07/25/24 05:03 Test 07/27/24 05:45 Range/Units Serum Glucose 106 74-106 mg/dL Assessment/Plan Acute kidney injury concerning for ATN suspect vancotoxicity Chronic kidney disease stage 3 Diabetes Stroke with left residual weakness /deficit Hypertension Pleural effusions Sepsis with recent treatment of pneumonia and decubitus ulcers hyperkalemia Avoid further nephrotoxic drugs Avoid contrast studies echo diastolic HF Ultrasound of the kidney shows nonobstructing kidney stone Recommended to strict Is&Os , place white today P.o. nutrition recommend IVF and diuretic combination to increase urinary flow and excretion repeat UA today to determine if cast noted repeat Vanco random level today guarded prognosis, high risk of needing HD Dietary Evaluation Review Comments: 1) Consider EN nutrition Jevity 1.2 @ 60 ml/hr goal rate 2) Advance pt diet when medically feasible to a Cardiac diet, modified per GIFTED PROGRAM TEACHER recommendations 3) If pt remains NPO >7 days consider TPN to meet at least 75% of estimated needs 4) Continue current plan of care Expected Outcomes/Goals: 1) Pt to receive adequate nutrition support 2) Pt diet to advance 3) F/U in 2-3 days Plan discussed with: Patient ELEAZAR DAVIS MD Jul 27, 2024 14:49
[2024-07-27] MEDS: FUROSEMIDE 40 MG/4 ML VIAL IV ONE (14:52)
[2024-07-27] MEDS ORDERED: FUROSEMIDE 40 MG/4 ML VIAL IV SCH (16:00)
[2024-07-27] MEDS: metOLazone 5 MG TAB PO ONE (16:45)
[2024-07-27] MEDS: SODIUM BICARB 50mEq/50ml SYR 75 ML in SOD CHL 0.45% 1,000 ML IV SCH (16:45)
[2024-07-27] MEDS: VANCOMYCIN HCL 125 MG CAP PO SCH (18:19)
[2024-07-27] MEDS: FUROSEMIDE 100 MG/10ML VIAL IV SCH (18:20)
--- NOTE | 2024-07-27 19:05 | DVHPN2 ---
Progress Note - Dictate Date Seen: Jul 27, 2024 Medical Necessity Reason Pt with a Central, PICC or Fol: No Subjective Patient seen and examined at bedside. Remains on supplemental oxygen Overnight events reviewed vital signs Vital Sign Date Time Temp Pulse Resp B/P (MAP) Pulse Ox O2 Delivery O2 Flow Rate FiO2 07/27/24 18:20 141/73 07/27/24 17:00 97.8 79 17 95 97.8 07/27/24 14:41 Nasal Cannula* 2 28 Total Intake and Output 07/26/24 07/26/24 07/27/24 15:00 23:00 07:00 Intake Total 250 ml 250 ml Output Total 0 ml Balance 250 ml 250 ml medications Current Medications Medications Dose Ordered Sig/Alo Route Start Time Stop Time Status Last Admin Dose Admin Sodium Chloride 10 ml Q8HR IV 07/25/24 06:00 07/27/24 14:52 10 ML Acetaminophen/ Hydrocodone Bitart 1 tab Q4HP PRN PO 07/24/24 23:15 Ondansetron HCl 4 mg Q4HP PRN IV 07/24/24 23:15 07/25/24 02:14 4 MG Nitroglycerin 0.4 mg Q5MINP PRN SL 07/24/24 23:15 Morphine Sulfate 2 mg Q30M PRN IV 07/24/24 23:15 Levofloxacin/ Dextrose 100 ml @ 66.667 mls/ hr EOD IV 07/26/24 10:00 07/26/24 09:57 66.667 MLS/HR Methylprednisolone Sodium Succinate 40 mg BID IV 07/25/24 10:00 07/27/24 14:52 40 MG Levothyroxine Sodium 100 mcg DAILY PO 07/25/24 10:00 07/27/24 11:01 100 MCG Albuterol 2.5 mg Q4HR NEB 07/25/24 02:00 07/27/24 18:40 2.5 MG Ipratropium [place] 0.5 mg Q4HR NEB 07/25/24 02:00 07/27/24 18:40 0.5 MG Morphine Sulfate 2 mg Q4HPRN PRN IV 07/25/24 02:15 07/25/24 02:14 2 MG Heparin Sodium (Porcine) 5,000 units Q12HR SC 07/25/24 10:00 07/27/24 11:05 5,000 UNITS Doxycycline Hyclate 250 ml @ 125 mls/hr Q12H IV 07/25/24 06:15 07/27/24 18:20 125 MLS/HR Zirconium Oxide 10 gm TID PO 07/26/24 08:00 07/28/24 07:59 07/27/24 14:52 10 GM Mupirocin 1 applic BID TOP 07/26/24 10:00 07/27/24 11:06 1 APPLIC Acetylcysteine 200 mg Q8HR NEB 07/26/24 14:00 07/29/24 13:59 07/27/24 14:42 200 MG Atorvastatin Calcium 20 mg HS PO 07/27/24 22:00 Metronidazole 100 ml @ 100 mls/hr Q8HR IV 07/27/24 22:00 Vancomycin HCl 125 mg QID PO 07/27/24 18:00 07/27/24 18:19 125 MG Furosemide 80 mg BIDD IV 07/27/24 18:00 07/27/24 18:20 80 MG Sodium Bicarbonate 75 ml/ Sodium Chloride 1,075 ml @ 60 mls/hr [id number] IV 07/27/24 15:45 07/27/24 16:45 60 MLS/HR objective Gen.: Patient lying in bed in no apparent distress. On supplemental oxygen Head: Normocephalic, atraumatic. Eyes: EOMI/PERRLA. Ears: Normal hearing. Normal anatomy. Neck/trachea: Trachea midline, supple. Nose: Normal external anatomy. Mouth: Moist mucous membranes. Chest: Decreased air entry bilaterally. Bilateral wheezing. No rhonchi. Cardiovascular: Positive S1, positive S2. Regular rate and rhythm. Abdomen: Positive bowel sounds in all 4 quadrants. Soft, non-tender, non- distended. : Deferred. Rectal: Deferred. Skin: Warm, dry. Intact. Extremities: 2+ radial pulses bilaterally. No lower extremity edema. Neuro: Awake, alert, oriented x3. No gross motor or sensory deficits. Cranial nerves II through XII intact. Gait not assessed. laboratory and microbiology Laboratory Tests 07/27/24 05:45 07/25/24 05:03 Test 07/27/24 05:45 Range/Units Serum Glucose 106 74-106 mg/dL Assessment/Plan Impression: Acute on chronic hypoxic respiratory failure secondary to acute exacerbation COPD Acute exacerbation of COPD Aspiration pneumonia Acute exacerbation of CHF Acute kidney injury on chronic kidney disease History of CVA with left-sided weakness Dementia with possible aspiration Unstageable decubitus ulcer History of hypothyroidism Pleural effusion Atelectasis Anemia Metabolic acidosis Events: Remains on supplemental oxygen On 2 LPM via NC Taper O2 as tolerated Wheezing - Continue bronchodilators/Mucomyst CPT Continue antibiotics - metronidazole, vancomycin, doxycycline Continue IV steroids Incentive spirometry NTS Diurese w/ Lasix 80 mg IV BID. Monitor renal function Monitor electrolytes. Supplement as necessary. Vela - monitor ins and outs Wound care CXR demonstrated improved aeration; pulmonary vascular congestion persists. Labs and imaging reviewed. Rest of plan as noted below. Plan: Ultrasound venous Doppler bilateral lower extremities: No lower extremity DVT. Ventilation perfusion scan showed low probability of pulmonary embolism. Chest x-ray imaging report reviewed: Trace bilateral pleural effusions. Atelectasis Limited chest ultrasound showed not enough fluid to drain - trace to small left pleural effusion. Supplemental oxygen On 2 LPM via NC Keep o2 saturation above 92% IV steroids Bronchodilators IV antibiotics. Monitor Hgb Keep above 7.0 g/dL Diurese to euvolemia Monitor ins/outs. Monitor renal function. Monitor electrolytes Supplement as necessary. DVT prophylaxis-Heparin s.c. Prognosis: Poor given multiple comorbidities. Rest of plan per hospitalist and other consultants. Thank you Dr. Zay Diaz for allowing me to participate in this patient's care. Further recommendations will depend on patient's clinical course. Please do not hesitate to contact me if you have any questions or concerns. This medical document was created using an electronic medical record system with [employer] dictation system. Although this document has been carefully reviewed, there may still be some phonetic and typographical errors. These areas are purely typographical due to imperfections of the software programs, and do not reflect any compromise in the patient's medical care. Dietary Evaluation Review Comments: 1) Consider EN nutrition Jevity 1.2 @ 60 ml/hr goal rate 2) Advance pt diet when medically feasible to a Cardiac diet, modified per DIGITAL SALES REPRESENTATIVE recommendations 3) If pt remains NPO >7 days consider TPN to meet at least 75% of estimated needs 4) Continue current plan of care Expected Outcomes/Goals: 1) Pt to receive adequate nutrition support 2) Pt diet to advance 3) F/U in 2-3 days Plan discussed with: Patient, Other (DANISH Mendez) TIFFANIE JIM MD Jul 27, 2024 19:05
[2024-07-27] MEDS: metroNIDAZOLE 500MG/100ML 100 ML IV SCH (22:26)
[2024-07-27] MEDS: ATORVASTATIN 20 MG TAB PO SCH (22:39)
[2024-07-28] VITALS (21 sets, daily range): BP systolic 130–156; BP diastolic 49–67; PULSE 53–88; RESP 18–20; TEMP 97.2–98; O2SAT 93–100
[2024-07-28 06:21] LABS: Basophils # (auto) 0 10 ^3/uL (0-0.2); Basophils % (auto) 0.1 % (0.0-2.0); Eosinophils # (auto) 0 10 ^3/uL (0-0.8); Hemoglobin 7.4 g/dL (13.5-17.5); Lymphocytes # (auto) 0.5 10 ^3/uL (0.4-5.4); Mean Corpuscular Volume 89.8 fL (80.0-100.0); Monocytes # (auto) 0.2 10 ^3/uL (0-1.3); White Blood Cell 7.3 10^3/uL (4.4-10.8)
[2024-07-28 06:24] LABS: Hematocrit 21.5 % (41.0-53.0); Lymphocytes % (auto) 7.1 % (10.0-50.0); Mean Corpuscular Hemoglobin 30.8 pg (28.0-32.0); Mean Corpuscular Hgb Conc. 34.3 g/dL (32.0-36.0); Neutrophils # (auto) 6.5 10 ^3/uL (1.6-8.6); Neutrophils % (auto) 89.8 % (37.0-80.0); Platelet Count (auto) 226 10^3/uL (140-450); Red Blood Cells 2.39 10^6/uL (4.5-5.90); Red Cell Distribution Width 16.7 % (11.8-14.3)
[2024-07-28 06:26] LABS: Alanine Aminotransferase 20 U/L (7-40); Albumin 2.7 g/dL (3.2-4.8); Alkaline Phosphatase 101 U/L (46-116); Anion Gap 14 (5-15); Aspartate Aminotransferase 15 U/L (13-40); BUN/Creatinine Ratio 9.7 (10.0-20.0); Calcium 8.5 mg/dL (8.7-10.4); Carbon Dioxide 18 mmol/L (20-31); Chloride 107 mmol/L (98-107); Glucose 125 mg/dL (74-106); Sodium 139 mmol/L (136-145)
[2024-07-28 06:27] LABS: Bilirubin, Total 0.3 mg/dL (0.2-1.0); Total Protein 5.1 g/dL (5.7-8.2)
[2024-07-28 06:36] LABS: Blood Urea Nitrogen 81 mg/dL (9-23); Potassium 5.7 mmol/L (3.5-5.1)
[2024-07-28] MEDS: ALBUTEROL SULF 2.5 MG/0.5ML(0.5%) NEB SOLN NEB ONE (09:42)
--- NOTE | 2024-07-28 10:02 | DVHPN2 ---
Reviewed: Care Plan, H&P, Labs, Medications, Previous Orders, Radiology Changes from previous H/P or p: No Changes Eyes: No Pain, No Vision change, No Conjunctivae inflammation, No Eyelid inflammation, No Other, No Redness ENT: No Ear pain, No Ear discharge, No Nose pain, No Nose discharge, No Nose congestion, No Mouth pain, No Mouth swelling, No Throat pain, No Throat swelling, No Other Cardiovascular: No Chest Pain, No Palpitations, No Orthopnea, No Paroxysmal Noc. Dyspnea, No Edema, No Lt Headedness, No Other Respiratory: Cough, Shortness of breath, Sputum Gastrointestinal: No Nausea, No Vomiting, No Abdominal Pain, No Diarrhea, No Constipation, No Melena, No Hematochezia, No Other Genitourinary: No Dysuria, No Frequency, No Incontinence, No Hematuria, No Retention, No Other Musculoskeletal: No other, No neck pain, No shoulder pain, No arm pain, No back pain, No hand pain, No leg pain, No foot pain Skin: No Rash, No Lesions, No Jaundice, No Bruising, No Other Objective Vitals Vital Signs Date Time Temp Pulse Resp B/P (MAP) Pulse Ox O2 Delivery O2 Flow Rate FiO2 07/28/24 07:11 62 20 94 07/28/24 07:01 Nasal Cannula 1.0 07/28/24 07:01 24 07/28/24 06:04 134/67 07/28/24 05:00 97.7 97.7 Intake/Output Intake and Output 07/28/24 07:00 Intake Total 2920 ml Output Total 125 ml Balance 2795 ml Intake Oral 400 ml IV Total 2520 ml Output Urine Total 125 ml Medications Current Medications Medications Dose Ordered Sig/Alo Route Start Time Stop Time Status Last Admin Dose Admin Sodium Chloride 10 ml Q8HR IV 07/25/24 06:00 07/28/24 06:04 10 ML Acetaminophen/ Hydrocodone Bitart 1 tab Q4HP PRN PO 07/24/24 23:15 Ondansetron HCl 4 mg Q4HP PRN IV 07/24/24 23:15 07/25/24 02:14 4 MG Nitroglycerin 0.4 mg Q5MINP PRN SL 07/24/24 23:15 Morphine Sulfate 2 mg Q30M PRN IV 07/24/24 23:15 Levofloxacin/ Dextrose 100 ml @ 66.667 mls/ hr EOD IV 07/26/24 10:00 07/26/24 09:57 66.667 MLS/HR Methylprednisolone Sodium Succinate 40 mg BID IV 07/25/24 10:00 07/27/24 22:30 40 MG Levothyroxine Sodium 100 mcg DAILY PO 07/25/24 10:00 07/27/24 11:01 100 MCG Albuterol 2.5 mg Q4HR NEB 07/25/24 02:00 07/28/24 09:53 2.5 MG Ipratropium [place] 0.5 mg Q4HR NEB 07/25/24 02:00 07/28/24 09:53 0.5 MG Morphine Sulfate 2 mg Q4HPRN PRN IV 07/25/24 02:15 07/25/24 02:14 2 MG Heparin Sodium (Porcine) 5,000 units Q12HR SC 07/25/24 10:00 07/27/24 22:51 5,000 UNITS Doxycycline Hyclate 250 ml @ 125 mls/hr Q12H IV 07/25/24 06:15 07/28/24 06:46 125 MLS/HR Mupirocin 1 applic BID TOP 07/26/24 10:00 07/27/24 22:40 1 APPLIC Acetylcysteine 200 mg Q8HR NEB 07/26/24 14:00 07/29/24 13:59 07/28/24 07:01 200 MG Atorvastatin Calcium 20 mg HS PO 07/27/24 22:00 07/27/24 22:39 20 MG Metronidazole 100 ml @ 100 mls/hr Q8HR IV 07/27/24 22:00 07/28/24 05:16 100 MLS/HR Vancomycin HCl 125 mg QID PO 07/27/24 18:00 07/28/24 06:03 125 MG Furosemide 80 mg BIDD IV 07/27/24 18:00 07/28/24 06:04 80 MG Sodium Bicarbonate 75 ml/ Sodium Chloride 1,075 ml @ 60 mls/hr [id number] IV 07/27/24 15:45 07/28/24 00:48 60 MLS/HR Laboratory Results Laboratory Tests 07/28/24 05:20 Chemistry Test 07/28/24 05:20 Albumin 2.7 g/dL (3.2-4.8) L Calcium Level 8.5 mg/dL (8.7-10.4) L Total Protein 5.1 g/dL (5.7-8.2) L LFT Test 07/28/24 05:20 Alanine Aminotransferase (ALT) 20 U/L (7-40) Alkaline Phosphatase 101 U/L (46-116) Aspartate Amino Transferase (AST) 15 U/L (13-40) Total Bilirubin 0.3 mg/dL (0.2-1.0) Urinalysis Test 07/26/24 14:19 Urine Color Light-orange (Yellow) Urine Clarity Ex.turbid (Clear) Urine pH 5.5 (5.0-9.0) Urine Specific [place] 1.027 (1.001-1.035) Urine Protein 3+ (Negative) H Urine Ketones Trace (Negative) Urine Blood 2+ /uL (Negative) H Urine Nitrite Negative (Negative) Urine Bilirubin Negative (Negative) Urine Urobilinogen Normal mg/dL (Negative) Urine Leukocyte Esterase Negative /uL (Negative) Urine RBC 93 /hpf (0 - 3) Urine WBC 22 /hpf (0 - 3) Urine WBC Clumps Present /hpf (None Seen) Urine Squamous Epithelial Cells None seen /hpf (<5) Urine Amorphous Crystals Few /hpf (None Seen) Urine Bacteria Few /hpf (None Seen) H Urine Mucus Few (None Seen) Urine Osmolality 342 mOsm/kg Urine Creatinine 129.65 mg/dL (30.0-125.0) H Urine Sodium 22 mmol/L (40-220) L Urine Potassium 67 mmol/L (12-62) H Urine Glucose Trace mg/dL (Normal) Urine Total Protein 412.8 mg/dL (1-14) H Microbiology Microbiology Date/Time Source Procedure Growth Status 07/26/24 11:30 Stool Clostridium difficile Toxin Assay - Final Complete 07/26/24 02:28 Nose MRSA Screen - Final Complete Labs and/or images reviewed: Labs reviewed by me, Image(s) reviewed by me Assessment/Plan Assessment/Plan Acute on chronic hypoxic respiratory failure: Oxygen by nasal cannula, ABG normal Acute COPD exacerbation: Albuterol Atrovent Solu-Medrol, consult for pulmonology Dr. Sandy appreciated Possible community-acquired aspiration pneumonia: Doxycycline Levaquin Possible CHF exacerbation with BNP in the range of 500: Echocardiogram 55 percent ejection fraction consult for music intern Dr. Thayer appreciated ELIZABET on CKD: BUN creatinine 47 and 5.17, which has been worsening, consult for Nephrology appreciated, started on Lokelma, IV fluids and Lasix; nephrology planning for emergency dialysis Vancomycin induced nephrotoxicity vanco levels were 17.5, avoid nephrotoxic medications Dementia History of CVA with left-sided hemiplegia Multiple unstageable decubitus ulcer of the sacrum: Wound consult Hypothyroidism Elevated D-dimer 2.57 DVT ruled out PE ruled out Condition guarded Moderate malnutrition History of prolonged hospitalization for three-month at [place] recently Superficial excoriation of the left hand: Bactroban ointment Time spent 65 minutes Patient is full code Advanced care planning time 20 minutes General condition very poor Patient was discharged from this hospital two days ago to [facility] and was brought back for shortness of breath Spoke to patient's brother and JACOB Moreno and I advised that the patient might need emergency dialysis if his kidney function does not improve. Plan discussed with: Patient My Orders Orders - KATLYN GUTIERREZ MD Procedure Category Date Status Time Insert Midline ORDERS 07/27/24 Transmitted 10:08 Lt Upper Dvt US 07/27/24 Resulted Metronidazole PHA 07/27/24 In Process 500mg/100ml (Flagyl 22:00 Vancomycin Po PHA 07/27/24 In Process 18:00 Date of Service: Jul 28, 2024 Billing Provider: KATLYN GUTIERREZ MD Common Visit Codes: 73122-[id number] CARE 30-74 MIN KATLYN GUTIERREZ MD Jul 28, 2024 10:02
--- NOTE | 2024-07-28 10:13 | DVHPN2 ---
Progress Note - Dictate Date Seen: Jul 28, 2024 Medical Necessity Reason Pt with a Central, PICC or Fol: Yes The following are medically ne: White Catheter Subjective ++ for Cdiff more lethargic today confused vital signs Vital Sign Date Time Temp Pulse Resp B/P (MAP) Pulse Ox O2 Delivery O2 Flow Rate FiO2 07/28/24 09:59 67 20 97 07/28/24 09:53 Nasal Cannula* 1 07/28/24 06:04 134/67 07/28/24 05:00 97.7 97.7 Total Intake and Output 07/27/24 07/27/24 07/28/24 15:00 23:00 07:00 Intake Total 1185 ml 1735 ml Output Total 100 ml 25 ml Balance 1085 ml 1710 ml medications Current Medications Medications Dose Ordered Sig/Alo Route Start Time Stop Time Status Last Admin Dose Admin Sodium Chloride 10 ml Q8HR IV 07/25/24 06:00 07/28/24 06:04 10 ML Acetaminophen/ Hydrocodone Bitart 1 tab Q4HP PRN PO 07/24/24 23:15 Ondansetron HCl 4 mg Q4HP PRN IV 07/24/24 23:15 07/25/24 02:14 4 MG Nitroglycerin 0.4 mg Q5MINP PRN SL 07/24/24 23:15 Morphine Sulfate 2 mg Q30M PRN IV 07/24/24 23:15 Levofloxacin/ Dextrose 100 ml @ 66.667 mls/ hr EOD IV 07/26/24 10:00 07/26/24 09:57 66.667 MLS/HR Methylprednisolone Sodium Succinate 40 mg BID IV 07/25/24 10:00 07/27/24 22:30 40 MG Levothyroxine Sodium 100 mcg DAILY PO 07/25/24 10:00 07/27/24 11:01 100 MCG Albuterol 2.5 mg Q4HR NEB 07/25/24 02:00 07/28/24 09:53 2.5 MG Ipratropium [place] 0.5 mg Q4HR NEB 07/25/24 02:00 07/28/24 09:53 0.5 MG Morphine Sulfate 2 mg Q4HPRN PRN IV 07/25/24 02:15 07/25/24 02:14 2 MG Heparin Sodium (Porcine) 5,000 units Q12HR SC 07/25/24 10:00 07/27/24 22:51 5,000 UNITS Doxycycline Hyclate 250 ml @ 125 mls/hr Q12H IV 07/25/24 06:15 07/28/24 06:46 125 MLS/HR Mupirocin 1 applic BID TOP 07/26/24 10:00 07/27/24 22:40 1 APPLIC Acetylcysteine 200 mg Q8HR NEB 07/26/24 14:00 07/29/24 13:59 07/28/24 07:01 200 MG Atorvastatin Calcium 20 mg HS PO 07/27/24 22:00 07/27/24 22:39 20 MG Metronidazole 100 ml @ 100 mls/hr Q8HR IV 07/27/24 22:00 07/28/24 05:16 100 MLS/HR Vancomycin HCl 125 mg QID PO 07/27/24 18:00 07/28/24 06:03 125 MG Furosemide 80 mg BIDD IV 07/27/24 18:00 07/28/24 06:04 80 MG Sodium Bicarbonate 75 ml/ Sodium Chloride 1,075 ml @ 60 mls/hr [id number] IV 07/27/24 15:45 07/28/24 00:48 60 MLS/HR objective Elderly white male Appears stated age Ill-appearing Slurred speech with left facial droop + wheeze , wet cough Contracted left arm Without decrease weakness in the right left lower extremity Abdomen is soft No pitting edema laboratory and microbiology Laboratory Tests 07/28/24 05:20 Test 07/28/24 05:20 Range/Units Serum Glucose 125 H 74-106 mg/dL Assessment/Plan Acute kidney injury concerning for ATN suspect vancotoxicity , Chronic kidney disease stage 3 Diabetes + Cdiff Stroke with left residual weakness /deficit Hypertension Pleural effusions Sepsis with recent treatment of pneumonia and decubitus ulcers hyperkalemia Avoid further nephrotoxic drugs Avoid contrast studies echo diastolic HF Ultrasound of the kidney shows nonobstructing kidney stone Recommended to strict Is&Os , place white today P.o. nutrition obtain consent from patient brother Shaheen rhoades for HD catheter and hemodialysis . Risk and benefits explained tentative treatment after access obtain medical treatment for elevated K ordered Dietary Evaluation Review Comments: 1) Consider EN nutrition Jevity 1.2 @ 60 ml/hr goal rate 2) Advance pt diet when medically feasible to a Cardiac diet, modified per MATERIALS AND PROCESSES MANAGER recommendations 3) If pt remains NPO >7 days consider TPN to meet at least 75% of estimated needs 4) Continue current plan of care Expected Outcomes/Goals: 1) Pt to receive adequate nutrition support 2) Pt diet to advance 3) F/U in 2-3 days Plan discussed with: Patient, Other (brother) ELEAZAR DAVIS MD Jul 28, 2024 10:13
[2024-07-28] MEDS: SODIUM CHL 0.9% 1000 ML BAG XX ONE (10:15)
[2024-07-28] MEDS: CALCIUM GLUC 1,000mg/50ml-NS 50 ML IV ONE (11:17)
[2024-07-28] MEDS ORDERED: HEPARIN SODIUM (PORCINE) 5000 UNITS/ML 1ML VIAL IV ONE ×2 (11:45→12:00)
--- NOTE | 2024-07-28 11:55 | DVHNC2 ---
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 Indication: Hypotension Room prepared for procedure: Yes [employer] performed hand hygien: Yes Maximal sterile barrier precau: Mask/Eye shield, Sterile gown Skin Preparation: Chlorhexidine gluconate, Providine iodine Skin preparation completely dr: Yes Insertion site: Right, Internal jugular Central line catheter type: [id number] dialysis Number of lumens: 2 Antiseptic ointment applied to: Yes Post Assessment: Chest X-Ray Date of Service: Jul 28, 2024 Billing Provider: NEPTALI ROBERTSON MD Common Visit Codes: [id number] INP/OBS CARE (HIGH) Secondary Visit Codes: 02401-[id number] STANDBY SERVICE Consultation Codes: [id number] CONSULT <45MIN Procedure Codes: [id number] NON-TUNNEL CV CATH NEPTALI ROBERTSON MD Jul 28, 2024 11:55
[2024-07-28] MEDS: InsuLIN REG 1unit/0.01ml Soln (100units/ml) IV ONE (12:07)
[2024-07-28] MEDS: DEXTROSE (50%) 50ML SYRG IV ONE (12:08)
--- NOTE | 2024-07-28 13:44 | DVH ---
CHEST RADIOGRAPH Indication:temporary hd catheter placement RIJ Technique: Single frontal view of the chest was obtained Comparison: XY CHEST XRAY 1 VIEW on DOS: 07/26/24, XY CHEST PORTABLE on DOS: 07/24/24, XY CHEST SHAHAB BLE on DOS: 07/19/24 FINDINGS: Lines and Tubes: None Lungs: Mild interstitial prominence with indistinctness of bilateral hemidiaphragm. No pneumothorax. Cardiomediastinal contours: Unremarkable Bones: No acute osseous abnormality. IMPRESSION: Small left with trace right pleural effusion. Questionable mild pulmonary vascular congestion.
[2024-07-28] MEDS: ALBUTEROL SULF 2.5 MG/0.5ML(0.5%) NEB SOLN ONE ×2 (18:15→21:42)
[2024-07-28] MEDS: IPRATROPIUM BROM 0.5 MG/2.5ML INH SOL ONE ×2 (18:15→21:42)
--- NOTE | 2024-07-28 21:57 | DVHPN2 ---
Progress Note - Dictate Date Seen: Jul 28, 2024 Medical Necessity Reason Pt with a Central, PICC or Fol: No The following are medically ne: Vela Catheter Subjective Patient seen and examined at bedside. Remains on supplemental oxygen Overnight events reviewed vital signs Vital Sign Date Time Temp Pulse Resp B/P (MAP) Pulse Ox O2 Delivery O2 Flow Rate FiO2 07/28/24 20:00 20 Nasal Cannula* 2 28 07/28/24 18:50 156/61 07/28/24 18:12 62 100 07/28/24 16:53 97.4 97.4 Total Intake and Output 07/27/24 07/27/24 07/28/24 15:00 23:00 07:00 Intake Total 1185 ml 1735 ml Output Total 100 ml 25 ml Balance 1085 ml 1710 ml medications Current Medications Medications Dose Ordered Sig/Alo Route Start Time Stop Time Status Last Admin Dose Admin Sodium Chloride 10 ml Q8HR IV 07/25/24 06:00 07/28/24 14:00 10 ML Acetaminophen/ Hydrocodone Bitart 1 tab Q4HP PRN PO 07/24/24 23:15 Ondansetron HCl 4 mg Q4HP PRN IV 07/24/24 23:15 07/25/24 02:14 4 MG Nitroglycerin 0.4 mg Q5MINP PRN SL 07/24/24 23:15 Morphine Sulfate 2 mg Q30M PRN IV 07/24/24 23:15 Levofloxacin/ Dextrose 100 ml @ 66.667 mls/ hr EOD IV 07/26/24 10:00 07/28/24 12:00 66.667 MLS/HR Methylprednisolone Sodium Succinate 40 mg BID IV 07/25/24 10:00 07/28/24 12:01 40 MG Levothyroxine Sodium 100 mcg DAILY PO 07/25/24 10:00 07/28/24 12:00 100 MCG Albuterol 2.5 mg Q4HR NEB 07/25/24 02:00 07/28/24 18:11 2.5 MG Ipratropium [place] 0.5 mg Q4HR NEB 07/25/24 02:00 07/28/24 18:11 0.5 MG Morphine Sulfate 2 mg Q4HPRN PRN IV 07/25/24 02:15 07/25/24 02:14 2 MG Heparin Sodium (Porcine) 5,000 units Q12HR SC 07/25/24 10:00 07/28/24 12:01 5,000 UNITS Doxycycline Hyclate 250 ml @ 125 mls/hr Q12H IV 07/25/24 06:15 07/28/24 18:50 125 MLS/HR Mupirocin 1 applic BID TOP 07/26/24 10:00 07/28/24 10:00 1 APPLIC Acetylcysteine 200 mg Q8HR NEB 07/26/24 14:00 07/29/24 13:59 07/28/24 14:11 200 MG Atorvastatin Calcium 20 mg HS PO 07/27/24 22:00 07/27/24 22:39 20 MG Metronidazole 100 ml @ 100 mls/hr Q8HR IV 07/27/24 22:00 07/28/24 15:07 100 MLS/HR Vancomycin HCl 125 mg QID PO 07/27/24 18:00 07/28/24 18:45 125 MG Furosemide 80 mg BIDD IV 07/27/24 18:00 07/28/24 18:50 80 MG Sodium Bicarbonate 75 ml/ Sodium Chloride 1,075 ml @ 60 mls/hr [id number] IV 07/27/24 15:45 07/28/24 00:48 60 MLS/HR objective Gen.: Patient lying in bed in no apparent distress. On supplemental oxygen Head: Normocephalic, atraumatic. Eyes: EOMI/PERRLA. Ears: Normal hearing. Normal anatomy. Neck/trachea: Trachea midline, supple. Nose: Normal external anatomy. Mouth: Moist mucous membranes. Chest: Decreased air entry bilaterally. Bilateral wheezing. No rhonchi. Cardiovascular: Positive S1, positive S2. Regular rate and rhythm. Abdomen: Positive bowel sounds in all 4 quadrants. Soft, non-tender, non- distended. : Deferred. Rectal: Deferred. Skin: Warm, dry. Intact. Extremities: 2+ radial pulses bilaterally. No lower extremity edema. Neuro: Awake, alert, oriented x3. No gross motor or sensory deficits. Cranial nerves II through XII intact. Gait not assessed. laboratory and microbiology Laboratory Tests 07/28/24 05:20 Test 07/28/24 05:20 Range/Units Serum Glucose 125 H 74-106 mg/dL Assessment/Plan Impression: Acute on chronic hypoxic respiratory failure secondary to acute exacerbation COPD Acute exacerbation of COPD Aspiration pneumonia Acute exacerbation of CHF Acute kidney injury on chronic kidney disease History of CVA with left-sided weakness Dementia with possible aspiration Unstageable decubitus ulcer History of hypothyroidism Pleural effusion Atelectasis Anemia Metabolic acidosis Events: Remains on supplemental oxygen On 1 LPM via NC Taper O2 as tolerated Plan for hemodialysis Continue bronchodilators/Mucomyst CPT Continue antibiotics/doxycycline Continue IV steroids Incentive spirometry NTS Calcium gluconate Diurese w/ Lasix 80 mg IV BID. Monitor renal function Monitor electrolytes. Supplement as necessary. Vela - monitor ins and outs Nephrology recs appreciated. Wound care Labs and imaging reviewed. Rest of plan as noted below. Plan: Ultrasound venous Doppler bilateral lower extremities: No lower extremity DVT. Ventilation perfusion scan showed low probability of pulmonary embolism. Chest x-ray imaging report reviewed: Trace bilateral pleural effusions. Atelectasis Limited chest ultrasound showed not enough fluid to drain - trace to small left pleural effusion. Supplemental oxygen On 1 LPM via NC Keep o2 saturation above 92% IV steroids Bronchodilators IV antibiotics. Monitor Hgb Keep above 7.0 g/dL Diurese to euvolemia Monitor ins/outs. Monitor renal function. Monitor electrolytes Supplement as necessary. DVT prophylaxis-Heparin s.c. Prognosis: Poor given multiple comorbidities. Rest of plan per hospitalist and other consultants. Thank you Dr. Zay Diaz for allowing me to participate in this patient's care. Further recommendations will depend on patient's clinical course. Please do not hesitate to contact me if you have any questions or concerns. This medical document was created using an electronic medical record system with [employer] dictation system. Although this document has been carefully reviewed, there may still be some phonetic and typographical errors. These areas are purely typographical due to imperfections of the software programs, and do not reflect any compromise in the patient's medical care. Dietary Evaluation Review Comments: 1) Consider EN nutrition Jevity 1.2 @ 60 ml/hr goal rate 2) Advance pt diet when medically feasible to a Cardiac diet, modified per GOLF SALES MANAGER recommendations 3) If pt remains NPO >7 days consider TPN to meet at least 75% of estimated needs 4) Continue current plan of care Expected Outcomes/Goals: 1) Pt to receive adequate nutrition support 2) Pt diet to advance 3) F/U in 2-3 days Plan discussed with: Patient, Other (DANISH Cage) TIFFANIE JIM MD Jul 28, 2024 21:57
[2024-07-29] VITALS (20 sets, daily range): BP systolic 140–156; BP diastolic 59–70; PULSE 63–99; RESP 16–20; TEMP 97.8–98.4; O2SAT 95–100
[2024-07-29 06:29] LABS: Basophils # (auto) 0 10 ^3/uL (0-0.2); Eosinophils # (auto) 0 10 ^3/uL (0-0.8); Hemoglobin 8.3 g/dL (13.5-17.5); Lymphocytes # (auto) 0.8 10 ^3/uL (0.4-5.4); Monocytes # (auto) 0.4 10 ^3/uL (0-1.3)
[2024-07-29 06:31] LABS: Hematocrit 25.5 % (41.0-53.0); Lymphocytes % (auto) 6.5 % (10.0-50.0); Mean Corpuscular Hemoglobin 30.1 pg (28.0-32.0); Mean Corpuscular Hgb Conc. 32.7 g/dL (32.0-36.0); Mean Corpuscular Volume 92.1 fL (80.0-100.0); Monocytes % (auto) 3.2 % (0.0-12.0); Neutrophils # (auto) 11.1 10 ^3/uL (1.6-8.6); Neutrophils % (auto) 90.3 % (37.0-80.0); Platelet Count (auto) 270 10^3/uL (140-450); Red Blood Cells 2.77 10^6/uL (4.5-5.90); White Blood Cell 12.4 10^3/uL (4.4-10.8)
[2024-07-29 06:45] LABS: Alanine Aminotransferase 21 U/L (7-40); Albumin 2.8 g/dL (3.2-4.8); Alkaline Phosphatase 99 U/L (46-116); Anion Gap 13 (5-15); Aspartate Aminotransferase 21 U/L (13-40); BUN/Creatinine Ratio 8.3 (10.0-20.0); Bilirubin, Total 0.3 mg/dL (0.2-1.0); Blood Urea Nitrogen 72 mg/dL (9-23); Calcium 8.8 mg/dL (8.7-10.4); Carbon Dioxide 18 mmol/L (20-31); Chloride 105 mmol/L (98-107); Glucose 118 mg/dL (74-106); Potassium 5.5 mmol/L (3.5-5.1); Sodium 136 mmol/L (136-145); Total Protein 5.2 g/dL (5.7-8.2)
[2024-07-29] MEDS: SODIUM ZIRCONIUM CYCL 10 GM PAK PO SCH (07:00)
--- NOTE | 2024-07-29 08:42 | DVHPN2 ---
Reviewed: Care Plan, H&P, Labs, Medications, Previous Orders, Radiology Changes from previous H/P or p: No Changes Eyes: No Pain, No Vision change, No Conjunctivae inflammation, No Eyelid inflammation, No Other, No Redness ENT: No Ear pain, No Ear discharge, No Nose pain, No Nose discharge, No Nose congestion, No Mouth pain, No Mouth swelling, No Throat pain, No Throat swelling, No Other Cardiovascular: No Chest Pain, No Palpitations, No Orthopnea, No Paroxysmal Noc. Dyspnea, No Edema, No Lt Headedness, No Other Respiratory: Cough, Shortness of breath, Sputum Gastrointestinal: No Nausea, No Vomiting, No Abdominal Pain, No Diarrhea, No Constipation, No Melena, No Hematochezia, No Other Genitourinary: No Dysuria, No Frequency, No Incontinence, No Hematuria, No Retention, No Other Musculoskeletal: No other, No neck pain, No shoulder pain, No arm pain, No back pain, No hand pain, No leg pain, No foot pain Skin: No Rash, No Lesions, No Jaundice, No Bruising, No Other Objective Vitals Vital Signs Date Time Temp Pulse Resp B/P (MAP) Pulse Ox O2 Delivery O2 Flow Rate FiO2 07/29/24 07:08 63 16 100 07/29/24 07:00 Nasal Cannula 1.0 07/29/24 07:00 24 07/29/24 05:54 156/66 07/29/24 05:00 97.8 97.8 Intake/Output Intake and Output 07/29/24 07:00 Intake Total 635 ml Output Total 75 ml Balance 560 ml Intake Oral 635 ml Output Urine Total 75 ml # Bowel Movements 6 Medications Current Medications Medications Dose Ordered Sig/Alo Route Start Time Stop Time Status Last Admin Dose Admin Sodium Chloride 10 ml Q8HR IV 07/25/24 06:00 07/29/24 05:54 10 ML Acetaminophen/ Hydrocodone Bitart 1 tab Q4HP PRN PO 07/24/24 23:15 Ondansetron HCl 4 mg Q4HP PRN IV 07/24/24 23:15 07/25/24 02:14 4 MG Nitroglycerin 0.4 mg Q5MINP PRN SL 07/24/24 23:15 Morphine Sulfate 2 mg Q30M PRN IV 07/24/24 23:15 Levofloxacin/ Dextrose 100 ml @ 66.667 mls/ hr EOD IV 07/26/24 10:00 07/28/24 12:00 66.667 MLS/HR Methylprednisolone Sodium Succinate 40 mg BID IV 07/25/24 10:00 07/28/24 22:25 40 MG Levothyroxine Sodium 100 mcg DAILY PO 07/25/24 10:00 07/28/24 12:00 100 MCG Albuterol 2.5 mg Q4HR NEB 07/25/24 02:00 07/29/24 06:59 2.5 MG Ipratropium [place] 0.5 mg Q4HR NEB 07/25/24 02:00 07/29/24 06:59 0.5 MG Morphine Sulfate 2 mg Q4HPRN PRN IV 07/25/24 02:15 07/25/24 02:14 2 MG Heparin Sodium (Porcine) 5,000 units Q12HR SC 07/25/24 10:00 07/28/24 22:27 5,000 UNITS Doxycycline Hyclate 250 ml @ 125 mls/hr Q12H IV 07/25/24 06:15 07/29/24 05:54 125 MLS/HR Mupirocin 1 applic BID TOP 07/26/24 10:00 07/28/24 22:31 1 APPLIC Acetylcysteine 200 mg Q8HR NEB 07/26/24 14:00 07/29/24 13:59 07/29/24 07:00 200 MG Atorvastatin Calcium 20 mg HS PO 07/27/24 22:00 07/28/24 22:25 20 MG Metronidazole 100 ml @ 100 mls/hr Q8HR IV 07/27/24 22:00 07/29/24 05:53 100 MLS/HR Vancomycin HCl 125 mg QID PO 07/27/24 18:00 07/29/24 05:54 125 MG Furosemide 80 mg BIDD IV 07/27/24 18:00 07/29/24 05:54 80 MG Sodium Bicarbonate 75 ml/ Sodium Chloride 1,075 ml @ 60 mls/hr [id number] IV 07/27/24 15:45 07/28/24 00:48 60 MLS/HR Zirconium Oxide 10 gm TID PO 07/29/24 07:00 07/31/24 06:59 Laboratory Results Laboratory Tests 07/29/24 05:47 Chemistry Test 07/29/24 05:47 Albumin 2.8 g/dL (3.2-4.8) L Calcium Level 8.8 mg/dL (8.7-10.4) Total Protein 5.2 g/dL (5.7-8.2) L LFT Test 07/29/24 05:47 Alanine Aminotransferase (ALT) 21 U/L (7-40) Alkaline Phosphatase 99 U/L (46-116) Aspartate Amino Transferase (AST) 21 U/L (13-40) Total Bilirubin 0.3 mg/dL (0.2-1.0) Urinalysis Test 07/26/24 14:19 Urine Color Light-orange (Yellow) Urine Clarity Ex.turbid (Clear) Urine pH 5.5 (5.0-9.0) Urine Specific [place] 1.027 (1.001-1.035) Urine Protein 3+ (Negative) H Urine Ketones Trace (Negative) Urine Blood 2+ /uL (Negative) H Urine Nitrite Negative (Negative) Urine Bilirubin Negative (Negative) Urine Urobilinogen Normal mg/dL (Negative) Urine Leukocyte Esterase Negative /uL (Negative) Urine RBC 93 /hpf (0 - 3) Urine WBC 22 /hpf (0 - 3) Urine WBC Clumps Present /hpf (None Seen) Urine Squamous Epithelial Cells None seen /hpf (<5) Urine Amorphous Crystals Few /hpf (None Seen) Urine Bacteria Few /hpf (None Seen) H Urine Mucus Few (None Seen) Urine Osmolality 342 mOsm/kg Urine Creatinine 129.65 mg/dL (30.0-125.0) H Urine Sodium 22 mmol/L (40-220) L Urine Potassium 67 mmol/L (12-62) H Urine Glucose Trace mg/dL (Normal) Urine Total Protein 412.8 mg/dL (1-14) H Microbiology Microbiology Date/Time Source Procedure Growth Status 07/26/24 11:30 Stool Clostridium difficile Toxin Assay - Final Complete 07/26/24 02:28 Nose MRSA Screen - Final Complete Labs and/or images reviewed: Labs reviewed by me, Image(s) reviewed by me Assessment/Plan Assessment/Plan Acute on chronic hypoxic respiratory failure: Oxygen by nasal cannula, ABG normal Acute COPD exacerbation: Albuterol Atrovent Solu-Medrol, consult for pulmonology Dr. Sandy appreciated Possible community-acquired aspiration pneumonia: Doxycycline Levaquin Possible CHF exacerbation with BNP in the range of 500: Echocardiogram 55 percent ejection fraction consult for client professional Dr. Thayer appreciated ELIZABET on CKD: Right IJ dialysis cath in place, Nephrology planning for dialysis patients brother and JACOB Moreno gave consult Vancomycin induced nephrotoxicity vanco levels were 17.5, avoid nephrotoxic medications Dementia History of CVA with left-sided hemiplegia Multiple unstageable decubitus ulcer of the sacrum: Wound consult Hypothyroidism Elevated D-dimer 2.57 DVT ruled out PE ruled out Condition guarded Moderate malnutrition History of prolonged hospitalization for three-month at [place] recently Superficial excoriation of the left hand: Bactroban ointment Time spent 65 minutes Patient is full code Advanced care planning time 20 minutes General condition very poor Patient is more confused and irritable today Plan discussed with: Patient Date of Service: Jul 29, 2024 Billing Provider: KATLYN GUTIERREZ MD Common Visit Codes: [id number] CARE 30-74 MIN KATLYN GUTIERREZ MD Jul 29, 2024 08:42
--- NOTE | 2024-07-29 15:27 | DVHPN2 ---
Progress Note - Dictate Date Seen: Jul 29, 2024 Medical Necessity Reason Pt with a Central, PICC or Fol: No The following are medically ne: Vela Catheter Subjective s/p HD yesterday treatment cut short due to poor catheter flow vital signs Vital Sign Date Time Temp Pulse Resp B/P (MAP) Pulse Ox O2 Delivery O2 Flow Rate FiO2 07/29/24 14:25 71 18 100 07/29/24 14:19 Nasal Cannula* 1 07/29/24 12:30 98.4 150/64 (92) 98.4 Total Intake and Output 07/28/24 07/28/24 07/29/24 15:00 23:00 07:00 Intake Total 530 ml 105 ml Output Total 75 ml Balance 530 ml 30 ml medications Current Medications Medications Dose Ordered Sig/Alo Route Start Time Stop Time Status Last Admin Dose Admin Sodium Chloride 10 ml Q8HR IV 07/25/24 06:00 07/29/24 14:12 10 ML Acetaminophen/ Hydrocodone Bitart 1 tab Q4HP PRN PO 07/24/24 23:15 Ondansetron HCl 4 mg Q4HP PRN IV 07/24/24 23:15 07/25/24 02:14 4 MG Nitroglycerin 0.4 mg Q5MINP PRN SL 07/24/24 23:15 Morphine Sulfate 2 mg Q30M PRN IV 07/24/24 23:15 Levofloxacin/ Dextrose 100 ml @ 66.667 mls/ hr EOD IV 07/26/24 10:00 07/28/24 12:00 66.667 MLS/HR Methylprednisolone Sodium Succinate 40 mg BID IV 07/25/24 10:00 07/29/24 10:00 40 MG Levothyroxine Sodium 100 mcg DAILY PO 07/25/24 10:00 07/29/24 10:00 100 MCG Albuterol 2.5 mg Q4HR NEB 07/25/24 02:00 07/29/24 14:19 2.5 MG Ipratropium [place] 0.5 mg Q4HR NEB 07/25/24 02:00 07/29/24 14:19 0.5 MG Morphine Sulfate 2 mg Q4HPRN PRN IV 07/25/24 02:15 07/25/24 02:14 2 MG Heparin Sodium (Porcine) 5,000 units Q12HR SC 07/25/24 10:00 07/28/24 22:27 5,000 UNITS Doxycycline Hyclate 250 ml @ 125 mls/hr Q12H IV 07/25/24 06:15 07/29/24 05:54 125 MLS/HR Mupirocin 1 applic BID TOP 07/26/24 10:00 07/29/24 10:00 1 APPLIC Atorvastatin Calcium 20 mg HS PO 07/27/24 22:00 07/28/24 22:25 20 MG Metronidazole 100 ml @ 100 mls/hr Q8HR IV 07/27/24 22:00 07/29/24 14:12 100 MLS/HR Vancomycin HCl 125 mg QID PO 07/27/24 18:00 07/29/24 12:00 125 MG Furosemide 80 mg BIDD IV 07/27/24 18:00 07/29/24 05:54 80 MG Sodium Bicarbonate 75 ml/ Sodium Chloride 1,075 ml @ 60 mls/hr [id number] IV 07/27/24 15:45 07/28/24 00:48 60 MLS/HR Zirconium Oxide 10 gm TID PO 07/29/24 07:00 07/31/24 06:59 objective Elderly white male Appears stated age Ill-appearing Slurred speech with left facial droop + wheeze , wet cough Contracted left arm Without decrease weakness in the right left lower extremity Abdomen is soft No pitting edema laboratory and microbiology Laboratory Tests 07/29/24 05:47 Test 07/29/24 05:47 Range/Units Serum Glucose 118 H 74-106 mg/dL Assessment/Plan Acute kidney injury concerning for ATN suspect vancotoxicity , Chronic kidney disease stage 3 Diabetes + Cdiff Stroke with left residual weakness /deficit Hypertension Pleural effusions Sepsis with recent treatment of pneumonia and decubitus ulcers hyperkalemia replace dialysis catheter Hd tentatively tomorrow after replacement Avoid further nephrotoxic drugs Avoid contrast studies echo diastolic HF potassium binder po Ultrasound of the kidney shows nonobstructing kidney stone Recommended to strict Is&Os , place cindy rolle P.o. nutrition obtain consent from patient brother Shaheen rhoades for HD catheter and hemodialysis . Risk and benefits explained tentative treatment after access obtain medical treatment for elevated K ordered Dietary Evaluation Review Comments: 1) Consider EN nutrition Jevity 1.2 @ 60 ml/hr goal rate 2) Advance pt diet when medically feasible to a Cardiac diet, modified per [employer] recommendations 3) If pt remains NPO >7 days consider TPN to meet at least 75% of estimated needs 4) Continue current plan of care Expected Outcomes/Goals: 1) Pt to receive adequate nutrition support 2) Pt diet to advance 3) F/U in 2-3 days Plan discussed with: Other ELEAZAR DAVIS MD Jul 29, 2024 15:27
--- NOTE | 2024-07-29 21:19 | DVHPN2 ---
Progress Note - Dictate Date Seen: Jul 29, 2024 Medical Necessity Reason Pt with a Central, PICC or Fol: Yes The following are medically ne: White Catheter Reason for white catheter: Strict I&O Subjective Patient seen and examined at bedside. Remains on supplemental oxygen Overnight events reviewed vital signs Vital Sign Date Time Temp Pulse Resp B/P (MAP) Pulse Ox O2 Delivery O2 Flow Rate FiO2 07/29/24 20:51 98.1 73 18 146/59 (88) 95 98.1 07/29/24 18:29 Nasal Cannula 1.0 07/29/24 18:29 24 Total Intake and Output 07/28/24 07/28/24 07/29/24 15:00 23:00 07:00 Intake Total 530 ml 105 ml Output Total 75 ml Balance 530 ml 30 ml medications Current Medications Medications Dose Ordered Sig/Alo Route Start Time Stop Time Status Last Admin Dose Admin Sodium Chloride 10 ml Q8HR IV 07/25/24 06:00 07/29/24 14:12 10 ML Acetaminophen/ Hydrocodone Bitart 1 tab Q4HP PRN PO 07/24/24 23:15 Ondansetron HCl 4 mg Q4HP PRN IV 07/24/24 23:15 07/25/24 02:14 4 MG Nitroglycerin 0.4 mg Q5MINP PRN SL 07/24/24 23:15 Morphine Sulfate 2 mg Q30M PRN IV 07/24/24 23:15 Levofloxacin/ Dextrose 100 ml @ 66.667 mls/ hr EOD IV 07/26/24 10:00 07/28/24 12:00 66.667 MLS/HR Methylprednisolone Sodium Succinate 40 mg BID IV 07/25/24 10:00 07/29/24 10:00 40 MG Levothyroxine Sodium 100 mcg DAILY PO 07/25/24 10:00 07/29/24 10:00 100 MCG Albuterol 2.5 mg Q4HR NEB 07/25/24 02:00 07/29/24 18:29 2.5 MG Ipratropium [place] 0.5 mg Q4HR NEB 07/25/24 02:00 07/29/24 18:29 0.5 MG Morphine Sulfate 2 mg Q4HPRN PRN IV 07/25/24 02:15 07/25/24 02:14 2 MG Heparin Sodium (Porcine) 5,000 units Q12HR SC 07/25/24 10:00 07/28/24 22:27 5,000 UNITS Doxycycline Hyclate 250 ml @ 125 mls/hr Q12H IV 07/25/24 06:15 07/29/24 16:15 125 MLS/HR Mupirocin 1 applic BID TOP 07/26/24 10:00 07/29/24 10:00 1 APPLIC Atorvastatin Calcium 20 mg HS PO 07/27/24 22:00 07/28/24 22:25 20 MG Metronidazole 100 ml @ 100 mls/hr Q8HR IV 07/27/24 22:00 07/29/24 14:12 100 MLS/HR Vancomycin HCl 125 mg QID PO 07/27/24 18:00 07/29/24 18:00 125 MG Furosemide 80 mg BIDD IV 07/27/24 18:00 07/29/24 18:00 80 MG Sodium Bicarbonate 75 ml/ Sodium Chloride 1,075 ml @ 60 mls/hr [id number] IV 07/27/24 15:45 07/28/24 00:48 60 MLS/HR Zirconium Oxide 10 gm TID PO 07/29/24 07:00 07/31/24 06:59 objective Gen.: Patient lying in bed in no apparent distress. On supplemental oxygen Head: Normocephalic, atraumatic. Eyes: EOMI/PERRLA. Ears: Normal hearing. Normal anatomy. Neck/trachea: Trachea midline, supple. Nose: Normal external anatomy. Mouth: Moist mucous membranes. Chest: Decreased air entry bilaterally. Bilateral wheezing. No rhonchi. Cardiovascular: Positive S1, positive S2. Regular rate and rhythm. Abdomen: Positive bowel sounds in all 4 quadrants. Soft, non-tender, non- distended. : Deferred. Rectal: Deferred. Skin: Warm, dry. Intact. Extremities: 2+ radial pulses bilaterally. No lower extremity edema. Neuro: Awake, alert, oriented x3. No gross motor or sensory deficits. Cranial nerves II through XII intact. Gait not assessed. laboratory and microbiology Laboratory Tests 07/29/24 05:47 Test 07/29/24 05:47 Range/Units Serum Glucose 118 H 74-106 mg/dL Assessment/Plan Impression: Acute on chronic hypoxic respiratory failure secondary to acute exacerbation COPD Acute exacerbation of COPD Aspiration pneumonia Acute exacerbation of CHF Acute kidney injury on chronic kidney disease History of CVA with left-sided weakness Dementia with possible aspiration Unstageable decubitus ulcer History of hypothyroidism Pleural effusion Atelectasis Anemia Metabolic acidosis Events: Remains on supplemental oxygen On 1 LPM via NC Improved O2 requirements Continue bronchodilators/Mucomyst Continue antibiotics Continue IV steroids Incentive spirometry Diurese w/ Lasix 80 mg IV BID. Monitor renal function Monitor electrolytes. Supplement as necessary. White - monitor ins and outs HD per nephrology Nephrology recs appreciated. Head of bed elevation Aspiration precautions Wound care Labs and imaging reviewed. Rest of plan as noted below. Plan: Ultrasound venous Doppler bilateral lower extremities: No lower extremity DVT. Ventilation perfusion scan showed low probability of pulmonary embolism. Chest x-ray imaging report reviewed: Trace bilateral pleural effusions. Atelectasis Limited chest ultrasound showed not enough fluid to drain - trace to small left pleural effusion. Supplemental oxygen On 1 LPM via [place] Keep o2 saturation above 92% IV steroids Bronchodilators IV antibiotics. Monitor Hgb Keep above 7.0 g/dL Diurese to euvolemia Monitor ins/outs. Monitor renal function. Monitor electrolytes Supplement as necessary. DVT prophylaxis-Heparin s.c. Prognosis: Poor given multiple comorbidities. Rest of plan per hospitalist and other consultants. Thank you Dr. Zay Diaz for allowing me to participate in this patient's care. Further recommendations will depend on patient's clinical course. Please do not hesitate to contact me if you have any questions or concerns. This medical document was created using an electronic medical record system with [employer] dictation system. Although this document has been carefully reviewed, there may still be some phonetic and typographical errors. These areas are purely typographical due to imperfections of the software programs, and do not reflect any compromise in the patient's medical care. Dietary Evaluation Review Comments: 1) Consider EN nutrition Jevity 1.2 @ 60 ml/hr goal rate 2) Advance pt diet when medically feasible to a Cardiac diet, modified per [employer] recommendations 3) If pt remains NPO >7 days consider TPN to meet at least 75% of estimated needs 4) Continue current plan of care Expected Outcomes/Goals: 1) Pt to receive adequate nutrition support 2) Pt diet to advance 3) F/U in 2-3 days Plan discussed with: Patient, Other (DANISH Cage) TIFFANIE JIM MD Jul 29, 2024 21:19
[2024-07-30] VITALS (23 sets, daily range): BP systolic 138–177; BP diastolic 62–73; PULSE 60–84; RESP 14–18; TEMP 97.6–99.1; O2SAT 91–100
[2024-07-30 08:41] LABS: Hepatitis B Surface Antigen Negative (Negative)
[2024-07-30 09:01] LABS: Hepatitis A Ab IgM Negative
[2024-07-30 09:02] LABS: Hepatitis B Core IgM Negative; Hepatitis C Antibody Negative (Negative)
--- NOTE | 2024-07-30 09:48 | DVHPN2 ---
Reviewed: Care Plan, H&P, Labs, Medications, Previous Orders, Radiology Changes from previous H/P or p: No Changes Eyes: No Pain, No Vision change, No Conjunctivae inflammation, No Eyelid inflammation, No Other, No Redness ENT: No Ear pain, No Ear discharge, No Nose pain, No Nose discharge, No Nose congestion, No Mouth pain, No Mouth swelling, No Throat pain, No Throat swelling, No Other Cardiovascular: No Chest Pain, No Palpitations, No Orthopnea, No Paroxysmal Noc. Dyspnea, No Edema, No Lt Headedness, No Other Respiratory: Cough, Shortness of breath, Sputum Gastrointestinal: No Nausea, No Vomiting, No Abdominal Pain, No Diarrhea, No Constipation, No Melena, No Hematochezia, No Other Genitourinary: No Dysuria, No Frequency, No Incontinence, No Hematuria, No Retention, No Other Musculoskeletal: No other, No neck pain, No shoulder pain, No arm pain, No back pain, No hand pain, No leg pain, No foot pain Skin: No Rash, No Lesions, No Jaundice, No Bruising, No Other Objective Vitals Vital Signs Date Time Temp Pulse Resp B/P (MAP) Pulse Ox O2 Delivery O2 Flow Rate FiO2 07/30/24 09:00 97.6 66 17 140/73 (95) 93 97.6 07/30/24 07:27 Nasal Cannula* 1 24 Intake/Output Intake and Output 07/30/24 07:00 Intake Total 620 ml Output Total 325 ml Balance 295 ml Intake Oral 620 ml Output Urine Total 325 ml # Bowel Movements 1 Medications Current Medications Medications Dose Ordered Sig/Alo Route Start Time Stop Time Status Last Admin Dose Admin Sodium Chloride 10 ml Q8HR IV 07/25/24 06:00 07/30/24 06:01 10 ML Acetaminophen/ Hydrocodone Bitart 1 tab Q4HP PRN PO 07/24/24 23:15 Ondansetron HCl 4 mg Q4HP PRN IV 07/24/24 23:15 07/25/24 02:14 4 MG Nitroglycerin 0.4 mg Q5MINP PRN SL 07/24/24 23:15 Morphine Sulfate 2 mg Q30M PRN IV 07/24/24 23:15 Levofloxacin/ Dextrose 100 ml @ 66.667 mls/ hr EOD IV 07/26/24 10:00 07/28/24 12:00 66.667 MLS/HR Methylprednisolone Sodium Succinate 40 mg BID IV 07/25/24 10:00 07/29/24 21:32 40 MG Levothyroxine Sodium 100 mcg DAILY PO 07/25/24 10:00 07/29/24 10:00 100 MCG Albuterol 2.5 mg Q4HR NEB 07/25/24 02:00 07/30/24 07:09 2.5 MG Ipratropium [place] 0.5 mg Q4HR NEB 07/25/24 02:00 07/30/24 07:09 0.5 MG Morphine Sulfate 2 mg Q4HPRN PRN IV 07/25/24 02:15 07/25/24 02:14 2 MG Heparin Sodium (Porcine) 5,000 units Q12HR SC 07/25/24 10:00 07/29/24 21:33 5,000 UNITS Doxycycline Hyclate 250 ml @ 125 mls/hr Q12H IV 07/25/24 06:15 07/30/24 06:00 125 MLS/HR Mupirocin 1 applic BID TOP 07/26/24 10:00 07/29/24 10:00 1 APPLIC Atorvastatin Calcium 20 mg HS PO 07/27/24 22:00 07/29/24 21:34 20 MG Metronidazole 100 ml @ 100 mls/hr Q8HR IV 07/27/24 22:00 07/30/24 05:59 100 MLS/HR Vancomycin HCl 125 mg QID PO 07/27/24 18:00 07/30/24 05:59 125 MG Furosemide 80 mg BIDD IV 07/27/24 18:00 07/30/24 05:58 80 MG Sodium Bicarbonate 75 ml/ Sodium Chloride 1,075 ml @ 60 mls/hr [id number] IV 07/27/24 15:45 07/28/24 00:48 60 MLS/HR Zirconium Oxide 10 gm TID PO 07/29/24 07:00 07/31/24 06:59 07/30/24 06:00 10 GM Laboratory Results Laboratory Tests 07/29/24 05:47 Urinalysis Test 07/26/24 14:19 Urine Color Light-orange (Yellow) Urine Clarity Ex.turbid (Clear) Urine pH 5.5 (5.0-9.0) Urine Specific [place] 1.027 (1.001-1.035) Urine Protein 3+ (Negative) H Urine Ketones Trace (Negative) Urine Blood 2+ /uL (Negative) H Urine Nitrite Negative (Negative) Urine Bilirubin Negative (Negative) Urine Urobilinogen Normal mg/dL (Negative) Urine Leukocyte Esterase Negative /uL (Negative) Urine RBC 93 /hpf (0 - 3) Urine WBC 22 /hpf (0 - 3) Urine WBC Clumps Present /hpf (None Seen) Urine Squamous Epithelial Cells None seen /hpf (<5) Urine Amorphous Crystals Few /hpf (None Seen) Urine Bacteria Few /hpf (None Seen) H Urine Mucus Few (None Seen) Urine Osmolality 342 mOsm/kg Urine Creatinine 129.65 mg/dL (30.0-125.0) H Urine Sodium 22 mmol/L (40-220) L Urine Potassium 67 mmol/L (12-62) H Urine Glucose Trace mg/dL (Normal) Urine Total Protein 412.8 mg/dL (1-14) H Microbiology Microbiology Date/Time Source Procedure Growth Status 07/26/24 11:30 Stool Clostridium difficile Toxin Assay - Final Complete 07/26/24 02:28 Nose MRSA Screen - Final Complete Labs and/or images reviewed: Labs reviewed by me, Image(s) reviewed by me Assessment/Plan Assessment/Plan Acute on chronic hypoxic respiratory failure: Oxygen by nasal cannula, ABG normal Acute COPD exacerbation: Albuterol Atrovent Solu-Medrol, consult for pulmonology Dr. Sandy appreciated Possible community-acquired aspiration pneumonia: Doxycycline Levaquin Possible CHF exacerbation with BNP in the range of 500: Echocardiogram 55 percent ejection fraction consult for [place] opener Dr. Thayer appreciated ELIZABET on CKD: Right IJ dialysis cath in place, Nephrology planning for dialysis patients brother and JACOB Moreno gave consult Vancomycin induced nephrotoxicity vanco levels were 17.5, avoid nephrotoxic medications Dementia History of CVA with left-sided hemiplegia Multiple unstageable decubitus ulcer of the sacrum: Wound consult Hypothyroidism Elevated D-dimer 2.57 DVT ruled out PE ruled out Condition guarded Moderate malnutrition History of prolonged hospitalization for three-month at [place] recently Superficial excoriation of the left hand: Bactroban ointment Time spent 65 minutes Patient is full code Advanced care planning time 20 minutes General condition very poor Patient is more confused and irritable today We will wait for the Nephrology evaluation for further dialysis Plan discussed with: Patient Date of Service: Jul 30, 2024 Billing Provider: KATLYN GUTIERREZ MD Common Visit Codes: [id number] CARE 30-74 MIN KATLYN GUTIERREZ MD Jul 30, 2024 09:48
[2024-07-30 11:08] LABS: Alanine Aminotransferase 65 U/L (7-40); Alkaline Phosphatase 131 U/L (46-116); Anion Gap 12 (5-15); Aspartate Aminotransferase 37 U/L (13-40); BUN/Creatinine Ratio 7.5 (10.0-20.0); Bilirubin, Total 0.8 mg/dL (0.2-1.0); Calcium 9.6 mg/dL (8.7-10.4); Carbon Dioxide 23 mmol/L (20-31); Chloride 104 mmol/L (98-107); Glucose 83 mg/dL (74-106); Sodium 139 mmol/L (136-145); Total Protein 6.9 g/dL (5.7-8.2)
[2024-07-30 11:09] LABS: Blood Urea Nitrogen 6 mg/dL (9-23); Potassium 3.2 mmol/L (3.5-5.1)
--- NOTE | 2024-07-30 13:19 | DVHPN2 ---
Progress Note Date Seen: Jul 30, 2024 Resident Creating Document: ALFRED OLGUIN RESIDENT Medical Necessity Reason Pt with a Central, PICC or Fol: Yes The following are medically ne: White Catheter Reason for white catheter: Strict I&O Subjective Review of Systems Patient seen and examined at bed side.. plan for john cath today and possible HD tomorrow. No other new complains. Reviewed CMP. Objective vital signs Vital Sign Date Time Temp Pulse Resp B/P (MAP) Pulse Ox O2 Delivery O2 Flow Rate FiO2 07/30/24 10:34 60 16 97 07/30/24 10:00 Nasal Cannula 2.0 07/30/24 10:00 28 07/30/24 09:00 97.6 140/73 (95) 97.6 Total Intake and Output 07/29/24 07/29/24 07/30/24 15:00 23:00 07:00 Intake Total 370 ml 250 ml Output Total 200 ml 125 ml Balance 170 ml 125 ml medications Current Medications Medications Dose Ordered Sig/Alo Route Start Time Stop Time Status Last Admin Dose Admin Sodium Chloride 10 ml Q8HR IV 07/25/24 06:00 07/30/24 12:56 10 ML Acetaminophen/ Hydrocodone Bitart 1 tab Q4HP PRN PO 07/24/24 23:15 Ondansetron HCl 4 mg Q4HP PRN IV 07/24/24 23:15 07/25/24 02:14 4 MG Nitroglycerin 0.4 mg Q5MINP PRN SL 07/24/24 23:15 Morphine Sulfate 2 mg Q30M PRN IV 07/24/24 23:15 Levofloxacin/ Dextrose 100 ml @ 66.667 mls/ hr EOD IV 07/26/24 10:00 07/30/24 10:41 66.667 MLS/HR Methylprednisolone Sodium Succinate 40 mg BID IV 07/25/24 10:00 07/30/24 10:41 40 MG Levothyroxine Sodium 100 mcg DAILY PO 07/25/24 10:00 07/30/24 10:41 100 MCG Albuterol 2.5 mg Q4HR NEB 07/25/24 02:00 07/30/24 10:24 2.5 MG Ipratropium [place] 0.5 mg Q4HR NEB 07/25/24 02:00 07/30/24 10:24 0.5 MG Morphine Sulfate 2 mg Q4HPRN PRN IV 07/25/24 02:15 07/25/24 02:14 2 MG Heparin Sodium (Porcine) 5,000 units Q12HR SC 07/25/24 10:00 07/29/24 21:33 5,000 UNITS Doxycycline Hyclate 250 ml @ 125 mls/hr Q12H IV 07/25/24 06:15 07/30/24 06:00 125 MLS/HR Mupirocin 1 applic BID TOP 07/26/24 10:00 07/29/24 10:00 1 APPLIC Atorvastatin Calcium 20 mg HS PO 07/27/24 22:00 07/29/24 21:34 20 MG Metronidazole 100 ml @ 100 mls/hr Q8HR IV 07/27/24 22:00 07/30/24 12:56 100 MLS/HR Vancomycin HCl 125 mg QID PO 07/27/24 18:00 07/30/24 12:56 125 MG Furosemide 80 mg BIDD IV 07/27/24 18:00 07/30/24 05:58 80 MG Sodium Bicarbonate 75 ml/ Sodium Chloride 1,075 ml @ 60 mls/hr [id number] IV 07/27/24 15:45 07/28/24 00:48 60 MLS/HR Zirconium Oxide 10 gm TID PO 07/29/24 07:00 07/31/24 06:59 07/30/24 12:55 10 GM Examination General Appearance: Cooperative. Well developed. Well nourished. NAD Head Exam: Normal inspection Neck Exam: Normal inspection. Non-tender. Normal alignment Pulmonary/Respiratory: Chest non-tender. Clear bilateral breath sounds Cardiovascular/Chest: Regular rate and rhythm. No murmurs. No JVD. Peripheral Pulses: 2+ Radial (R). 2+ Radial (L). 2+ Pedal (R). 2+ Pedal (L) Abdominal Exam: Normal bowel sounds. Soft. Nontender. No hepatospenomegaly. No masses Ankle Exam: Negative ankle edema Lower extremities: Negative lower extremity edema Neuro/Mental Status: A&O x4. Coherent laboratory and microbiology Laboratory Tests 07/30/24 05:00 Test 07/30/24 13:10 Range/Units Serum Glucose Pending Microbiology Date/Time Source Procedure Growth Status 07/26/24 11:30 Stool Clostridium difficile Toxin Assay - Final Complete 07/26/24 02:28 Nose MRSA Screen - Final Complete Problem List/Assessment/Plan Problem List/Assessment/Plan ELIZABET with ATN likely due to suspected vancomycin toxicity CKD stage 3 Diabetes mellitus type 2 Dementia History of CVA with left-sided hemiplegia Decubitus ulcer of sacrum Community-acquired pneumonia C diff infection Plan/recommendation Plan discussed with Dr Oshea. -plan for John dialysis catheter insertion today -possible hemodialysis tomorrow -avoid further nephrotoxic drugs -recommend ID consultation given multiple antibiotic use concerning worsening kidney function. -continue phosphate binder p.o. -strict I and O -obtain consent for John cath dialysis. Reviewed CBC, CMP, previous medical records. Plan for for John dialysis catheter insertion today, plan for possible dialysis tomorrow. Addendum Patient seen and examined, plan discussed with resident. Agree with above, we will follow closely Plan discussed with: Patient, Other (RN) My Orders My Orders Orders - ALFRED OLGUIN Procedure Category Date Status Time Communication Order ORDERS 07/30/24 Transmitted 10:41 Comprehensive LAB 07/30/24 In Process Metabolic Panel 12:37 Dietary Evaluation Review Comments: 1) Consider EN nutrition Jevity 1.2 @ 60 ml/hr goal rate 2) Advance pt diet when medically feasible to a Cardiac diet, modified per FLORAL ASSISTANT recommendations 3) If pt remains NPO >7 days consider TPN to meet at least 75% of estimated needs 4) Continue current plan of care Expected Outcomes/Goals: 1) Pt to receive adequate nutrition support 2) Pt diet to advance 3) F/U in 2-3 days ALFRED OLGUIN Jul 30, 2024 13:19 CASSIE OSHEA MD Jul 30, 2024 15:08
[2024-07-30 13:42] LABS: Alanine Aminotransferase 18 U/L (7-40); Albumin 2.8 g/dL (3.2-4.8); Alkaline Phosphatase 97 U/L (46-116); Anion Gap 13 (5-15); Aspartate Aminotransferase 17 U/L (13-40); BUN/Creatinine Ratio 10.5 (10.0-20.0); Calcium 8.3 mg/dL (8.7-10.4); Carbon Dioxide 18 mmol/L (20-31); Chloride 106 mmol/L (98-107); Glucose 115 mg/dL (74-106); Potassium 5.1 mmol/L (3.5-5.1); Sodium 137 mmol/L (136-145)
[2024-07-30 13:43] LABS: Bilirubin, Total 0.3 mg/dL (0.2-1.0); Total Protein 5.1 g/dL (5.7-8.2)
[2024-07-30 13:47] LABS: Blood Urea Nitrogen 95 mg/dL (9-23)
[2024-07-30] MEDS: cloNIDine HCL 0.1 MG TAB PO PRN (14:59)
--- NOTE | 2024-07-30 17:47 | DVHNC2 ---
Procedure - ULTRASOUND-GUIDED LEFT INTERNAL JUGULAR LARGE BORE CENTRAL VENOUS CANNULATION CPT Codes: 25958 (ultrasound guidance) 57803 (insertion of non-tunneled centrally inserted central venous catheter) 20849 (CXR interpretation) DATE: 07/30/2024 PHYSICIAN: Tiffanie Sandy PREOPERATIVE DIAGNOSIS: In need of hemodialysis access POSTOPERATIVE DIAGNOSIS: same PROCEDURE PERFORMED: Limited Ultrasound-guided LEFT internal jugular central line placement. ANESTHESIA: 2 mL of 1% lidocaine plain. ESTIMATED BLOOD LOSS: less than 5 mL. SPECIMENS: None. COMPLICATIONS: None. INDICATIONS FOR PROCEDURE: The patient is in need of large bore IV access for administration of fluids, including blood products and vasoactive drugs, possible transvenous cardiac pacing and CVP monitoring for hemodynamic instability. DESCRIPTION OF PROCEDURE IN DETAIL: The patient was lying in the Trendelenburg position with head turned 30 degrees away from the insertion site. The skin was thoroughly sponged with chlorhexidine and allowed to dry. All persons involved were shielded with hair nets, face masks and sterile gowns. With sterile-gloved hands the LEFT neck area was draped with the large disposable sterile field provided in the pre-manufactured kit. The skin and subcutaneous tissues superficial to the LEFT internal jugular vein were anesthetized with 2 mL of 1% lidocaine. The LEFT internal jugular vein was identified on ultrasound from the angle of the mandible down into the supraclavicular fossa using the linear ultrasound probe in the transverse orientation. The carotid artery was identified and avoided utilizing color-flow. The internal jugular vein was then placed in the center of the ultrasound field and compressed for patency. A movement artifact was identified as the needle was advanced through the skin and advanced toward the vessel. A real time hyperechoic signal revealed visualization of vascular needle entry into the lumen as blood was noted to flashback in the syringe. The needle was then held in place while the guide wire was advanced. The needle was then removed. Direct visualization of guide wire location within the vein was noted on ultrasound indicating proper placement and was document in the electronic medical record chart. A skin dilator was advanced over the guidewire and removed, and the double-lumen large bore catheter was then advanced over the guide wire into proper position. The guide wire was removed and discarded. The ports were aspirated which showed good blood return and then carefully flushed with normal saline. The catheter was stabilized and sutured to the skin with 2-0 silk at 2 anchor points. A sterile bio-patch and dressing was placed over the catheter, including the insertion site. The patient tolerated the procedure well. A chest x-ray was ordered for position confirmation. It is pending at time of writing this note. An image recording of the procedure accompanies the chart. TIFFANIE SANDY MD Jul 30, 2024 17:47
--- NOTE | 2024-07-30 19:54 | DVH ---
CHEST RADIOGRAPH Indication: s/p left IJ John catheter, r/o PTX Technique: Single frontal view of the chest was obtained Comparison: XY CHEST XRAY 1 VIEW on DOS: 07/28/24, XY CHEST XRAY 1 VIEW on DOS: 07/26/24, XY CHEST PO RTABLE on DOS: 07/24/24 Findings/ IMPRESSION: Left IJ catheter with tip projected terminating in the SVC. Bilateral lower lung zone hazy opacification, concerning for small pleural effusions versus atelectas is versus developing airspace disease.
--- NOTE | 2024-07-30 23:19 | DVHPN2 ---
Progress Note - Dictate Date Seen: Jul 30, 2024 Medical Necessity Reason Pt with a Central, PICC or Fol: Yes The following are medically ne: White Catheter Reason for white catheter: Strict I&O Subjective Patient seen and examined at bedside. Remains on supplemental oxygen Overnight events reviewed vital signs Vital Sign Date Time Temp Pulse Resp B/P (MAP) Pulse Ox O2 Delivery O2 Flow Rate FiO2 07/30/24 22:35 80 18 100 07/30/24 22:30 Nasal Cannula* 1 07/30/24 21:00 98.0 168/66 (100) 98.0 Total Intake and Output 07/29/24 07/29/24 07/30/24 15:00 23:00 07:00 Intake Total 370 ml 250 ml Output Total 200 ml 125 ml Balance 170 ml 125 ml medications Current Medications Medications Dose Ordered Sig/Alo Route Start Time Stop Time Status Last Admin Dose Admin Sodium Chloride 10 ml Q8HR IV 07/25/24 06:00 07/30/24 21:48 10 ML Acetaminophen/ Hydrocodone Bitart 1 tab Q4HP PRN PO 07/24/24 23:15 Ondansetron HCl 4 mg Q4HP PRN IV 07/24/24 23:15 07/25/24 02:14 4 MG Nitroglycerin 0.4 mg Q5MINP PRN SL 07/24/24 23:15 Morphine Sulfate 2 mg Q30M PRN IV 07/24/24 23:15 Levofloxacin/ Dextrose 100 ml @ 66.667 mls/ hr EOD IV 07/26/24 10:00 07/30/24 10:41 66.667 MLS/HR Methylprednisolone Sodium Succinate 40 mg BID IV 07/25/24 10:00 07/30/24 21:51 40 MG Levothyroxine Sodium 100 mcg DAILY PO 07/25/24 10:00 07/30/24 10:41 100 MCG Albuterol 2.5 mg Q4HR NEB 07/25/24 02:00 07/30/24 22:30 2.5 MG Ipratropium [place] 0.5 mg Q4HR NEB 07/25/24 02:00 07/30/24 22:30 0.5 MG Morphine Sulfate 2 mg Q4HPRN PRN IV 07/25/24 02:15 07/25/24 02:14 2 MG Heparin Sodium (Porcine) 5,000 units Q12HR SC 07/25/24 10:00 07/30/24 21:57 5,000 UNITS Doxycycline Hyclate 250 ml @ 125 mls/hr Q12H IV 07/25/24 06:15 07/30/24 18:05 125 MLS/HR Mupirocin 1 applic BID TOP 07/26/24 10:00 07/29/24 10:00 1 APPLIC Atorvastatin Calcium 20 mg HS PO 07/27/24 22:00 07/30/24 21:51 20 MG Metronidazole 100 ml @ 100 mls/hr Q8HR IV 07/27/24 22:00 07/30/24 21:48 100 MLS/HR Vancomycin HCl 125 mg QID PO 07/27/24 18:00 07/30/24 21:52 125 MG Furosemide 80 mg BIDD IV 07/27/24 18:00 07/30/24 18:06 80 MG Zirconium Oxide 10 gm TID PO 07/29/24 07:00 07/31/24 06:59 07/30/24 21:52 10 GM Clonidine HCl 0.2 mg Q6HP PRN PO 07/30/24 14:15 07/30/24 14:59 0.2 MG objective Gen.: Patient lying in bed in no apparent distress. On supplemental oxygen Head: Normocephalic, atraumatic. Eyes: EOMI/PERRLA. Ears: Normal hearing. Normal anatomy. Neck/trachea: Trachea midline, supple. Nose: Normal external anatomy. Mouth: Moist mucous membranes. Chest: Decreased air entry bilaterally. Coarse breath sounds. No wheezing. No rhonchi. Cardiovascular: Positive S1, positive S2. Regular rate and rhythm. Abdomen: Positive bowel sounds in all 4 quadrants. Soft, non-tender, non- distended. : Deferred. Rectal: Deferred. Skin: Warm, dry. Intact. Extremities: 2+ radial pulses bilaterally. No lower extremity edema. Neuro: Awake, alert, oriented x3. No gross motor or sensory deficits. Cranial nerves II through XII intact. Gait not assessed. laboratory and microbiology Laboratory Tests 07/30/24 13:10 07/30/24 05:00 Test 07/30/24 13:10 Range/Units Serum Glucose 115 H 74-106 mg/dL Assessment/Plan Impression: Acute on chronic hypoxic respiratory failure secondary to acute exacerbation COPD Acute exacerbation of COPD Aspiration pneumonia Acute exacerbation of CHF Acute kidney injury on chronic kidney disease History of CVA with left-sided weakness Dementia with possible aspiration Unstageable decubitus ulcer History of hypothyroidism Pleural effusion Atelectasis Anemia Metabolic acidosis Events: Remains on supplemental oxygen On 1 LPM via [place] Plan for placement of left IJ John cath Malfunctioning right IJ John removed yesterday (07/29). S/p placement of left IJ large bore central line - See separate procedure note for details Plan for HD per Nephrology Continue bronchodilators Continue antibiotics Continue IV steroids Incentive spirometry Diurese w/ Lasix 80 mg IV BID. Monitor renal function Monitor electrolytes. Supplement as necessary. White - monitor ins and outs HD per nephrology Head of bed elevation Aspiration precautions Wound care Labs and imaging reviewed. Rest of plan as noted below. Plan: Ultrasound venous Doppler bilateral lower extremities: No lower extremity DVT. Ventilation perfusion scan showed low probability of pulmonary embolism. Chest x-ray imaging report reviewed: Trace bilateral pleural effusions. Atelectasis Limited chest ultrasound showed not enough fluid to drain - trace to small left pleural effusion. Supplemental oxygen Keep O2 saturation above 92% IV steroids Bronchodilators IV antibiotics. Monitor Hgb Keep above 7.0 g/dL Diurese to euvolemia Monitor ins/outs. Monitor renal function. Monitor electrolytes Supplement as necessary. DVT prophylaxis-Heparin s.c. Prognosis: Poor given multiple comorbidities. Rest of plan per hospitalist and other consultants. Thank you Dr. Zay Diaz for allowing me to participate in this patient's care. Further recommendations will depend on patient's clinical course. Please do not hesitate to contact me if you have any questions or concerns. This medical document was created using an electronic medical record system with [employer] dictation system. Although this document has been carefully reviewed, there may still be some phonetic and typographical errors. These areas are purely typographical due to imperfections of the software programs, and do not reflect any compromise in the patient's medical care. Dietary Evaluation Review Comments: 1) Consider EN nutrition Jevity 1.2 @ 60 ml/hr goal rate 2) Advance pt diet when medically feasible to a Cardiac diet, modified per DECONTAMINATION TECHNICIAN recommendations 3) If pt remains NPO >7 days consider TPN to meet at least 75% of estimated needs 4) Continue current plan of care Expected Outcomes/Goals: 1) Pt to receive adequate nutrition support 2) Pt diet to advance 3) F/U in 2-3 days Plan discussed with: Patient, Other (RN) TIFFANIE JIM MD Jul 30, 2024 23:19
[2024-07-31] VITALS (19 sets, daily range): BP systolic 143–173; BP diastolic 53–75; PULSE 61–81; RESP 16–22; TEMP 97.5–98; O2SAT 94–100
[2024-07-31 07:12] LABS: Alanine Aminotransferase 20 U/L (7-40); Alkaline Phosphatase 88 U/L (46-116); Anion Gap 16 (5-15); BUN/Creatinine Ratio 12.4 (10.0-20.0); Calcium 8.4 mg/dL (8.7-10.4); Carbon Dioxide 15 mmol/L (20-31); Chloride 104 mmol/L (98-107); Glucose 110 mg/dL (74-106); Sodium 135 mmol/L (136-145)
[2024-07-31 07:13] LABS: Albumin 2.7 g/dL (3.2-4.8); Aspartate Aminotransferase 24 U/L (13-40)
[2024-07-31 07:14] LABS: Bilirubin, Total 0.3 mg/dL (0.2-1.0); Total Protein 4.6 g/dL (5.7-8.2)
[2024-07-31 07:22] LABS: Basophils # (auto) 0 10 ^3/uL (0-0.2); Eosinophils # (auto) 0 10 ^3/uL (0-0.8); Hemoglobin 8.1 g/dL (13.5-17.5); Monocytes # (auto) 0.2 10 ^3/uL (0-1.3); Monocytes % (auto) 1.9 % (0.0-12.0); Neutrophils # (auto) 10.7 10 ^3/uL (1.6-8.6); Red Blood Cells 2.66 10^6/uL (4.5-5.90); Red Cell Distribution Width 17.6 % (11.8-14.3)
[2024-07-31 07:23] LABS: Hematocrit 25.5 % (41.0-53.0); Lymphocytes # (auto) 0.7 10 ^3/uL (0.4-5.4); Lymphocytes % (auto) 6.1 % (10.0-50.0); Mean Corpuscular Hemoglobin 30.4 pg (28.0-32.0); Mean Corpuscular Hgb Conc. 31.7 g/dL (32.0-36.0); Mean Corpuscular Volume 95.9 fL (80.0-100.0); Platelet Count (auto) 223 10^3/uL (140-450); White Blood Cell 11.7 10^3/uL (4.4-10.8)
[2024-07-31 07:32] LABS: Potassium 5.9 mmol/L (3.5-5.1)
[2024-07-31 07:33] LABS: Blood Urea Nitrogen 121 mg/dL (9-23)
[2024-07-31] MEDS: SODIUM ZIRCONIUM CYCL 10 GM PAK PO SCH (08:47)
--- NOTE | 2024-07-31 09:25 | DVHPN2 ---
Reviewed: Care Plan, H&P, Labs, Medications, Previous Orders, Radiology Changes from previous H/P or p: No Changes Eyes: No Pain, No Vision change, No Conjunctivae inflammation, No Eyelid inflammation, No Other, No Redness ENT: No Ear pain, No Ear discharge, No Nose pain, No Nose discharge, No Nose congestion, No Mouth pain, No Mouth swelling, No Throat pain, No Throat swelling, No Other Cardiovascular: No Chest Pain, No Palpitations, No Orthopnea, No Paroxysmal Noc. Dyspnea, No Edema, No Lt Headedness, No Other Respiratory: Cough, Shortness of breath, Sputum Gastrointestinal: No Nausea, No Vomiting, No Abdominal Pain, No Diarrhea, No Constipation, No Melena, No Hematochezia, No Other Genitourinary: No Dysuria, No Frequency, No Incontinence, No Hematuria, No Retention, No Other Musculoskeletal: No other, No neck pain, No shoulder pain, No arm pain, No back pain, No hand pain, No leg pain, No foot pain Skin: No Rash, No Lesions, No Jaundice, No Bruising, No Other Objective Vitals Vital Signs Date Time Temp Pulse Resp B/P (MAP) Pulse Ox O2 Delivery O2 Flow Rate FiO2 07/31/24 09:00 98.0 63 18 168/68 (101) 97 98.0 07/31/24 06:49 Nasal Cannula* 2 28 Intake/Output Intake and Output 07/31/24 07:00 Intake Total 930 ml Output Total 250 ml Balance 680 ml Intake Oral 730 ml IV Total 200 ml Output Urine Total 250 ml # Bowel Movements 3 Medications Current Medications Medications Dose Ordered Sig/Alo Route Start Time Stop Time Status Last Admin Dose Admin Sodium Chloride 10 ml Q8HR IV 07/25/24 06:00 07/31/24 05:41 10 ML Acetaminophen/ Hydrocodone Bitart 1 tab Q4HP PRN PO 07/24/24 23:15 Ondansetron HCl 4 mg Q4HP PRN IV 07/24/24 23:15 07/25/24 02:14 4 MG Nitroglycerin 0.4 mg Q5MINP PRN SL 07/24/24 23:15 Morphine Sulfate 2 mg Q30M PRN IV 07/24/24 23:15 Levofloxacin/ Dextrose 100 ml @ 66.667 mls/ hr EOD IV 07/26/24 10:00 07/30/24 10:41 66.667 MLS/HR Methylprednisolone Sodium Succinate 40 mg BID IV 07/25/24 10:00 07/30/24 21:51 40 MG Levothyroxine Sodium 100 mcg DAILY PO 07/25/24 10:00 07/30/24 10:41 100 MCG Albuterol 2.5 mg Q4HR NEB 07/25/24 02:00 07/31/24 09:15 2.5 MG Ipratropium [place] 0.5 mg Q4HR NEB 07/25/24 02:00 07/31/24 09:14 0.5 MG Morphine Sulfate 2 mg Q4HPRN PRN IV 07/25/24 02:15 07/25/24 02:14 2 MG Heparin Sodium (Porcine) 5,000 units Q12HR SC 07/25/24 10:00 07/30/24 21:57 5,000 UNITS Doxycycline Hyclate 250 ml @ 125 mls/hr Q12H IV 07/25/24 06:15 07/31/24 05:37 125 MLS/HR Mupirocin 1 applic BID TOP 07/26/24 10:00 07/29/24 10:00 1 APPLIC Atorvastatin Calcium 20 mg HS PO 07/27/24 22:00 07/30/24 21:51 20 MG Metronidazole 100 ml @ 100 mls/hr Q8HR IV 07/27/24 22:00 07/31/24 05:36 100 MLS/HR Vancomycin HCl 125 mg QID PO 07/27/24 18:00 07/31/24 05:37 125 MG Furosemide 80 mg BIDD IV 07/27/24 18:00 07/31/24 05:37 80 MG Clonidine HCl 0.2 mg Q6HP PRN PO 07/30/24 14:15 07/30/24 14:59 0.2 MG Zirconium Oxide 10 gm TID PO 07/31/24 08:47 Laboratory Results Laboratory Tests 07/31/24 06:09 Chemistry Test 07/30/24 10:22 07/30/24 13:10 07/31/24 06:09 Albumin 4.0 g/dL (3.2-4.8) 2.8 g/dL (3.2-4.8) L 2.7 g/dL (3.2-4.8) L Calcium Level 9.6 mg/dL (8.7-10.4) 8.3 mg/dL (8.7-10.4) L 8.4 mg/dL (8.7-10.4) L Total Protein 6.9 g/dL (5.7-8.2) 5.1 g/dL (5.7-8.2) L 4.6 g/dL (5.7-8.2) L LFT Test 07/30/24 10:22 07/30/24 13:10 07/31/24 06:09 Alanine Aminotransferase (ALT) 65 U/L (7-40) H 18 U/L (7-40) 20 U/L (7-40) Alkaline Phosphatase 131 U/L (46-116) H 97 U/L (46-116) 88 U/L (46-116) Aspartate Amino Transferase (AST) 37 U/L (13-40) 17 U/L (13-40) 24 U/L (13-40) Total Bilirubin 0.8 mg/dL (0.2-1.0) 0.3 mg/dL (0.2-1.0) 0.3 mg/dL (0.2-1.0) Urinalysis Test 07/26/24 14:19 Urine Color Light-orange (Yellow) Urine Clarity Ex.turbid (Clear) Urine pH 5.5 (5.0-9.0) Urine Specific [place] 1.027 (1.001-1.035) Urine Protein 3+ (Negative) H Urine Ketones Trace (Negative) Urine Blood 2+ /uL (Negative) H Urine Nitrite Negative (Negative) Urine Bilirubin Negative (Negative) Urine Urobilinogen Normal mg/dL (Negative) Urine Leukocyte Esterase Negative /uL (Negative) Urine RBC 93 /hpf (0 - 3) Urine WBC 22 /hpf (0 - 3) Urine WBC Clumps Present /hpf (None Seen) Urine Squamous Epithelial Cells None seen /hpf (<5) Urine Amorphous Crystals Few /hpf (None Seen) Urine Bacteria Few /hpf (None Seen) H Urine Mucus Few (None Seen) Urine Osmolality 342 mOsm/kg Urine Creatinine 129.65 mg/dL (30.0-125.0) H Urine Sodium 22 mmol/L (40-220) L Urine Potassium 67 mmol/L (12-62) H Urine Glucose Trace mg/dL (Normal) Urine Total Protein 412.8 mg/dL (1-14) H Microbiology Microbiology Date/Time Source Procedure Growth Status 07/26/24 11:30 Stool Clostridium difficile Toxin Assay - Final Complete 07/26/24 02:28 Nose MRSA Screen - Final Complete Labs and/or images reviewed: Labs reviewed by me, Image(s) reviewed by me Assessment/Plan Assessment/Plan Acute on chronic hypoxic respiratory failure: Oxygen by nasal cannula, ABG normal Acute COPD exacerbation: Albuterol Atrovent Solu-Medrol, consult for pulmonology Dr. Sandy appreciated Possible community-acquired aspiration pneumonia: Doxycycline Levaquin Possible CHF exacerbation with BNP in the range of 500: Echocardiogram 55 percent ejection fraction consult for senior ios developer Dr. 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, avoid nephrotoxic medications Dementia History of CVA with left-sided hemiplegia Multiple unstageable decubitus ulcer of the sacrum: Wound consult Hypothyroidism Elevated D-dimer 2.57 DVT ruled out PE ruled out Condition guarded Moderate malnutrition History of prolonged hospitalization for three-month at [place] recently Superficial excoriation of the left hand: Bactroban ointment Time spent 65 minutes Patient is full code Advanced care planning time 20 minutes General condition poor Plan discussed with: Patient My Orders Orders - KATLYN GUTIERREZ MD Procedure Category Date Status Time Clonidine Hcl Tablet PHA 07/30/24 In Process (Catapres Tablet) 14:15 Date of Service: Jul 31, 2024 Billing Provider: KATLYN GUTIERREZ MD Common Visit Codes: [id number] INP/OBS CARE(HIGH) KATLYN GUTIERREZ MD Jul 31, 2024 09:25
[2024-07-31] MEDS: SODIUM CHL 0.9% 1000 ML BAG XX ONE (10:57)
[2024-07-31] MEDS ORDERED: PATIENTS OWN MEDICATION EACHEYE SCH (13:00)
[2024-07-31] MEDS: [UNRECOGNIZED DRUG - OTHER] EACHEYE SCH (13:14)
--- NOTE | 2024-07-31 14:03 | DVHPN2 ---
Progress Note Date Seen: Jul 31, 2024 Resident Creating Document: ALFRED OLGUIN RESIDENT Medical Necessity Reason Pt with a Central, PICC or Fol: Yes The following are medically ne: White Catheter Reason for white catheter: Strict I&O Subjective Review of Systems Patient seen and examined at bedside. Patient underwent dialysis today. No other complaints at this point. Review of CMP Objective vital signs Vital Sign Date Time Temp Pulse Resp B/P (MAP) Pulse Ox O2 Delivery O2 Flow Rate FiO2 07/31/24 13:48 76 20 98 07/31/24 13:40 Nasal Cannula 2.0 07/31/24 13:00 97.5 158/67 (97) 97.5 07/31/24 10:00 28 Total Intake and Output 07/30/24 07/30/24 07/31/24 15:00 23:00 07:00 Intake Total 100 ml 590 ml 240 ml Output Total 150 ml 100 ml Balance 100 ml 440 ml 140 ml medications Current Medications Medications Dose Ordered Sig/Alo Route Start Time Stop Time Status Last Admin Dose Admin Sodium Chloride 10 ml Q8HR IV 07/25/24 06:00 07/31/24 13:14 10 ML Acetaminophen/ Hydrocodone Bitart 1 tab Q4HP PRN PO 07/24/24 23:15 Ondansetron HCl 4 mg Q4HP PRN IV 07/24/24 23:15 07/25/24 02:14 4 MG Nitroglycerin 0.4 mg Q5MINP PRN SL 07/24/24 23:15 Morphine Sulfate 2 mg Q30M PRN IV 07/24/24 23:15 Levofloxacin/ Dextrose 100 ml @ 66.667 mls/ hr EOD IV 07/26/24 10:00 07/30/24 10:41 66.667 MLS/HR Methylprednisolone Sodium Succinate 40 mg BID IV 07/25/24 10:00 07/31/24 12:32 40 MG Levothyroxine Sodium 100 mcg DAILY PO 07/25/24 10:00 07/31/24 12:32 100 MCG Albuterol 2.5 mg Q4HR NEB 07/25/24 02:00 07/31/24 13:40 2.5 MG Ipratropium [place] 0.5 mg Q4HR NEB 07/25/24 02:00 07/31/24 13:40 0.5 MG Morphine Sulfate 2 mg Q4HPRN PRN IV 07/25/24 02:15 07/25/24 02:14 2 MG Heparin Sodium (Porcine) 5,000 units Q12HR SC 07/25/24 10:00 07/31/24 12:44 5,000 UNITS Doxycycline Hyclate 250 ml @ 125 mls/hr Q12H IV 07/25/24 06:15 07/31/24 05:37 125 MLS/HR Mupirocin 1 applic BID TOP 07/26/24 10:00 07/29/24 10:00 1 APPLIC Atorvastatin Calcium 20 mg HS PO 07/27/24 22:00 07/30/24 21:51 20 MG Metronidazole 100 ml @ 100 mls/hr Q8HR IV 07/27/24 22:00 07/31/24 13:14 100 MLS/HR Vancomycin HCl 125 mg QID PO 07/27/24 18:00 07/31/24 12:32 125 MG Furosemide 80 mg BIDD IV 07/27/24 18:00 07/31/24 05:37 80 MG Clonidine HCl 0.2 mg Q6HP PRN PO 07/30/24 14:15 07/30/24 14:59 0.2 MG Zirconium Oxide 10 gm TID PO 07/31/24 08:47 Patient Own Medication 1 BID EACHEYE 07/31/24 13:00 07/31/24 13:14 1 Examination General Appearance: Cooperative. Well developed. Well nourished. NAD Head Exam: Normal inspection Neck Exam: Normal inspection. Non-tender. Normal alignment Pulmonary/Respiratory: Chest non-tender. Clear bilateral breath sounds Cardiovascular/Chest: Regular rate and rhythm. No murmurs. No JVD. Peripheral Pulses: 2+ Radial (R). 2+ Radial (L). 2+ Pedal (R). 2+ Pedal (L) Abdominal Exam: Normal bowel sounds. Soft. Nontender. No hepatospenomegaly. No masses Ankle Exam: Negative ankle edema Lower extremities: Negative lower extremity edema Neuro/Mental Status: A&O x4. Coherent laboratory and microbiology Laboratory Tests 07/31/24 06:09 Test 07/31/24 06:09 Range/Units Serum Glucose 110 H 74-106 mg/dL Microbiology Date/Time Source Procedure Growth Status 07/26/24 11:30 Stool Clostridium difficile Toxin Assay - Final Complete 07/26/24 02:28 Nose MRSA Screen - Final Complete Problem List/Assessment/Plan Problem List/Assessment/Plan ELIZABET with ATN likely due to suspected vancomycin toxicity needing HD CKD stage 3 Diabetes mellitus type 2 Dementia History of CVA with left-sided hemiplegia Decubitus ulcer of sacrum Community-acquired pneumonia C diff infection Plan/recommendation Plan discussed with Dr Oshea. -Underwent hemodialysis today. Possible hemodialysis tomorrow as well. -Avoid further nephrotoxic drugs -Recommend ID consultation given multiple antibiotic use concerning worsening kidney function. -Continue phosphate binder p.o. and sodium zirconium 10 mg p.o. daily. -Strict I and O -Ultrasound of the kidney shows nonobstructing kidney stone -Echo:Normal left ventricular systolic function estimated ejection fraction 55%. There is a grade 1 diastolic dysfunction. Addendum Patient seen and examined, plan discussed with resident. Agree with above, we will follow closely Hd tomorrow Plan discussed with: Patient, Other (RN) My Orders My Orders Orders - ALFRED OLGUIN RESIDENT Procedure Category Date Status Time Us Guidance For US 07/30/24 Taken Needle Placeme 17:09 Sodium Zirconium PHA 07/31/24 In Process Cyclosilicate 08:47 Dietary Evaluation Review Comments: 1) Consider EN nutrition Jevity 1.2 @ 60 ml/hr goal rate 2) Advance pt diet when medically feasible to a Cardiac diet, modified per [facility] TECHNICAL ARCHITECT recommendations 3) If pt remains NPO >7 days consider TPN to meet at least 75% of estimated needs 4) Continue current plan of care Expected Outcomes/Goals: 1) Pt to receive adequate nutrition support 2) Pt diet to advance 3) F/U in 2-3 days ALFRED OLGUIN Jul 31, 2024 14:03 CASSIE OSHEA MD Jul 31, 2024 18:37
--- NOTE | 2024-07-31 20:48 | DVHPN2 ---
Progress Note - Dictate Date Seen: Jul 31, 2024 Medical Necessity Reason Pt with a Central, PICC or Fol: Yes The following are medically ne: White Catheter Reason for white catheter: Strict I&O Subjective Patient seen and examined at bedside. Remains on supplemental oxygen Overnight events reviewed vital signs Vital Sign Date Time Temp Pulse Resp B/P (MAP) Pulse Ox O2 Delivery O2 Flow Rate FiO2 07/31/24 19:06 72 22 95 07/31/24 18:51 152/53 (86) 07/31/24 16:59 97.9 97.9 07/31/24 13:40 Nasal Cannula 2.0 07/31/24 10:00 28 Total Intake and Output 07/30/24 07/30/24 07/31/24 15:00 23:00 07:00 Intake Total 100 ml 590 ml 240 ml Output Total 150 ml 100 ml Balance 100 ml 440 ml 140 ml medications Current Medications Medications Dose Ordered Sig/Alo Route Start Time Stop Time Status Last Admin Dose Admin Sodium Chloride 10 ml Q8HR IV 07/25/24 06:00 07/31/24 13:14 10 ML Acetaminophen/ Hydrocodone Bitart 1 tab Q4HP PRN PO 07/24/24 23:15 Ondansetron HCl 4 mg Q4HP PRN IV 07/24/24 23:15 07/25/24 02:14 4 MG Nitroglycerin 0.4 mg Q5MINP PRN SL 07/24/24 23:15 Morphine Sulfate 2 mg Q30M PRN IV 07/24/24 23:15 Levofloxacin/ Dextrose 100 ml @ 66.667 mls/ hr EOD IV 07/26/24 10:00 07/30/24 10:41 66.667 MLS/HR Methylprednisolone Sodium Succinate 40 mg BID IV 07/25/24 10:00 07/31/24 12:32 40 MG Levothyroxine Sodium 100 mcg DAILY PO 07/25/24 10:00 07/31/24 12:32 100 MCG Albuterol 2.5 mg Q4HR NEB 07/25/24 02:00 07/31/24 19:03 2.5 MG Ipratropium [place] 0.5 mg Q4HR NEB 07/25/24 02:00 07/31/24 19:03 0.5 MG Morphine Sulfate 2 mg Q4HPRN PRN IV 07/25/24 02:15 07/25/24 02:14 2 MG Heparin Sodium (Porcine) 5,000 units Q12HR SC 07/25/24 10:00 07/31/24 12:44 5,000 UNITS Doxycycline Hyclate 250 ml @ 125 mls/hr Q12H IV 07/25/24 06:15 07/31/24 17:34 125 MLS/HR Mupirocin 1 applic BID TOP 07/26/24 10:00 07/29/24 10:00 1 APPLIC Atorvastatin Calcium 20 mg HS PO 07/27/24 22:00 07/30/24 21:51 20 MG Metronidazole 100 ml @ 100 mls/hr Q8HR IV 07/27/24 22:00 07/31/24 13:14 100 MLS/HR Vancomycin HCl 125 mg QID PO 07/27/24 18:00 07/31/24 17:35 125 MG Furosemide 80 mg BIDD IV 07/27/24 18:00 07/31/24 18:26 80 MG Clonidine HCl 0.2 mg Q6HP PRN PO 07/30/24 14:15 07/31/24 17:34 0.2 MG Zirconium Oxide 10 gm TID PO 07/31/24 08:47 Patient Own Medication 1 BID EACHEYE 07/31/24 13:00 07/31/24 13:14 1 objective Gen.: Patient lying in bed in no apparent distress. On supplemental oxygen Head: Normocephalic, atraumatic. Eyes: EOMI/PERRLA. Ears: Normal hearing. Normal anatomy. Neck/trachea: Trachea midline, supple. Nose: Normal external anatomy. Mouth: Moist mucous membranes. Chest: Decreased air entry bilaterally. Coarse breath sounds. No wheezing. No rhonchi. Cardiovascular: Positive S1, positive S2. Regular rate and rhythm. Abdomen: Positive bowel sounds in all 4 quadrants. Soft, non-tender, non- distended. : Deferred. Rectal: Deferred. Skin: Warm, dry. Intact. Extremities: 2+ radial pulses bilaterally. No lower extremity edema. Neuro: Awake, alert, oriented x3. No gross motor or sensory deficits. Cranial nerves II through XII intact. Gait not assessed. laboratory and microbiology Laboratory Tests 07/31/24 06:09 Test 07/31/24 06:09 Range/Units Serum Glucose 110 H 74-106 mg/dL Assessment/Plan Impression: Acute on chronic hypoxic respiratory failure secondary to acute exacerbation COPD Acute exacerbation of COPD Aspiration pneumonia Acute exacerbation of CHF Acute kidney injury on chronic kidney disease History of CVA with left-sided weakness Dementia with possible aspiration Unstageable decubitus ulcer History of hypothyroidism Pleural effusion Atelectasis Anemia Metabolic acidosis Events: Remains on supplemental oxygen On 3 LPM via NC Taper O2 as tolerated Hemodialysis per Nephrology Removed 1.5 liters via HD. Continue bronchodilators Continue antibiotics Continue IV steroids Incentive spirometry Normal saline eye drops. Diurese w/ Lasix 80 mg IV BID. Monitor renal function Monitor electrolytes. Supplement as necessary. White - monitor ins and outs HD per nephrology Head of bed elevation Aspiration precautions Wound care Labs and imaging reviewed. Rest of plan as noted below. Plan: Ultrasound venous Doppler bilateral lower extremities: No lower extremity DVT. Ventilation perfusion scan showed low probability of pulmonary embolism. Chest x-ray imaging report reviewed: Trace bilateral pleural effusions. Atelectasis Limited chest ultrasound showed not enough fluid to drain - trace to small left pleural effusion. Supplemental oxygen Keep O2 saturation above 92% IV steroids Bronchodilators IV antibiotics. Monitor Hgb Keep above 7.0 g/dL Diurese to euvolemia Monitor ins/outs. Monitor renal function. Monitor electrolytes Supplement as necessary. DVT prophylaxis-Heparin s.c. Prognosis: Poor given multiple comorbidities. Rest of plan per hospitalist and other consultants. Thank you Dr. Zay Diaz for allowing me to participate in this patient's care. Further recommendations will depend on patient's clinical course. Please do not hesitate to contact me if you have any questions or concerns. This medical document was created using an electronic medical record system with [employer] dictation system. Although this document has been carefully reviewed, there may still be some phonetic and typographical errors. These areas are purely typographical due to imperfections of the software programs, and do not reflect any compromise in the patient's medical care. Dietary Evaluation Review Comments: 1) Consider EN nutrition Jevity 1.2 @ 60 ml/hr goal rate 2) Advance pt diet when medically feasible to a Cardiac diet, modified per NETWORKING SPECIALIST recommendations 3) If pt remains NPO >7 days consider TPN to meet at least 75% of estimated needs 4) Continue current plan of care Expected Outcomes/Goals: 1) Pt to receive adequate nutrition support 2) Pt diet to advance 3) F/U in 2-3 days Plan discussed with: Patient, Other (DANISH Guzmán) TIFFANIE JIM MD Jul 31, 2024 20:48
[2024-08-01] VITALS (19 sets, daily range): BP systolic 119–141; BP diastolic 53–67; PULSE 60–88; RESP 16–22; TEMP 97.3–98.2; O2SAT 92–100
[2024-08-01] MEDS: EPOETIN ALFA-EPBX 4,000 UNIT/ML VIAL SC ONE (02:27)
[2024-08-01 05:55] LABS: Basophils # (auto) 0 10 ^3/uL (0-0.2); Eosinophils # (auto) 0 10 ^3/uL (0-0.8); Hematocrit 23.4 % (41.0-53.0); Hemoglobin 7.7 g/dL (13.5-17.5); Mean Corpuscular Hemoglobin 30.3 pg (28.0-32.0); Monocytes # (auto) 0.3 10 ^3/uL (0-1.3); Red Blood Cells 2.55 10^6/uL (4.5-5.90); White Blood Cell 9.9 10^3/uL (4.4-10.8)
[2024-08-01 05:57] LABS: Lymphocytes # (auto) 0.6 10 ^3/uL (0.4-5.4); Lymphocytes % (auto) 6.3 % (10.0-50.0); Mean Corpuscular Volume 91.6 fL (80.0-100.0); Monocytes % (auto) 2.7 % (0.0-12.0); Platelet Count (auto) 190 10^3/uL (140-450); Red Cell Distribution Width 17.4 % (11.8-14.3)
[2024-08-01 06:18] LABS: Alanine Aminotransferase 20 U/L (7-40); Albumin 2.5 g/dL (3.2-4.8); Alkaline Phosphatase 83 U/L (46-116); Anion Gap 15 (5-15); Aspartate Aminotransferase 19 U/L (13-40); BUN/Creatinine Ratio 12.2 (10.0-20.0); Bilirubin, Total 0.3 mg/dL (0.2-1.0); Calcium 8.1 mg/dL (8.7-10.4); Carbon Dioxide 19 mmol/L (20-31); Chloride 103 mmol/L (98-107); Glucose 107 mg/dL (74-106); Potassium 5.4 mmol/L (3.5-5.1); Sodium 137 mmol/L (136-145); Total Protein 4.3 g/dL (5.7-8.2)
[2024-08-01 06:28] LABS: Blood Urea Nitrogen 97 mg/dL (9-23)
--- NOTE | 2024-08-01 09:22 | DVHPN2 ---
Reviewed: Care Plan, H&P, Labs, Medications, Previous Orders, Radiology Changes from previous H/P or p: No Changes Eyes: No Pain, No Vision change, No Conjunctivae inflammation, No Eyelid inflammation, No Other, No Redness ENT: No Ear pain, No Ear discharge, No Nose pain, No Nose discharge, No Nose congestion, No Mouth pain, No Mouth swelling, No Throat pain, No Throat swelling, No Other Cardiovascular: No Chest Pain, No Palpitations, No Orthopnea, No Paroxysmal Noc. Dyspnea, No Edema, No Lt Headedness, No Other Respiratory: Cough, Shortness of breath, Sputum Gastrointestinal: No Nausea, No Vomiting, No Abdominal Pain, No Diarrhea, No Constipation, No Melena, No Hematochezia, No Other Genitourinary: No Dysuria, No Frequency, No Incontinence, No Hematuria, No Retention, No Other Musculoskeletal: No other, No neck pain, No shoulder pain, No arm pain, No back pain, No hand pain, No leg pain, No foot pain Skin: No Rash, No Lesions, No Jaundice, No Bruising, No Other Objective Vitals Vital Signs Date Time Temp Pulse Resp B/P (MAP) Pulse Ox O2 Delivery O2 Flow Rate FiO2 08/01/24 09:05 98.2 68 17 141/53 (82) 92 98.2 08/01/24 06:41 Nasal Cannula 2.0 08/01/24 06:41 28 Intake/Output Intake and Output 08/01/24 07:00 Intake Total 900 ml Output Total 150 ml Balance 750 ml Intake Oral 550 ml IV Total 350 ml Output Urine Total 150 ml # Bowel Movements 3 Medications Current Medications Medications Dose Ordered Sig/Alo Route Start Time Stop Time Status Last Admin Dose Admin Sodium Chloride 10 ml Q8HR IV 07/25/24 06:00 08/01/24 05:54 10 ML Acetaminophen/ Hydrocodone Bitart 1 tab Q4HP PRN PO 07/24/24 23:15 Ondansetron HCl 4 mg Q4HP PRN IV 07/24/24 23:15 07/25/24 02:14 4 MG Nitroglycerin 0.4 mg Q5MINP PRN SL 07/24/24 23:15 Morphine Sulfate 2 mg Q30M PRN IV 07/24/24 23:15 Levofloxacin/ Dextrose 100 ml @ 66.667 mls/ hr EOD IV 07/26/24 10:00 07/30/24 10:41 66.667 MLS/HR Methylprednisolone Sodium Succinate 40 mg BID IV 07/25/24 10:00 07/31/24 21:40 40 MG Levothyroxine Sodium 100 mcg DAILY PO 07/25/24 10:00 07/31/24 12:32 100 MCG Albuterol 2.5 mg Q4HR NEB 07/25/24 02:00 08/01/24 06:41 2.5 MG Ipratropium [place] 0.5 mg Q4HR NEB 07/25/24 02:00 08/01/24 06:41 0.5 MG Morphine Sulfate 2 mg Q4HPRN PRN IV 07/25/24 02:15 07/25/24 02:14 2 MG Heparin Sodium (Porcine) 5,000 units Q12HR SC 07/25/24 10:00 07/31/24 21:58 5,000 UNITS Doxycycline Hyclate 250 ml @ 125 mls/hr Q12H IV 07/25/24 06:15 08/01/24 05:55 125 MLS/HR Mupirocin 1 applic BID TOP 07/26/24 10:00 07/31/24 21:46 1 APPLIC Atorvastatin Calcium 20 mg HS PO 07/27/24 22:00 07/31/24 21:34 20 MG Metronidazole 100 ml @ 100 mls/hr Q8HR IV 07/27/24 22:00 08/01/24 05:55 100 MLS/HR Vancomycin HCl 125 mg QID PO 07/27/24 18:00 08/01/24 05:53 125 MG Furosemide 80 mg BIDD IV 07/27/24 18:00 08/01/24 05:55 80 MG Clonidine HCl 0.2 mg Q6HP PRN PO 07/30/24 14:15 07/31/24 17:34 0.2 MG Zirconium Oxide 10 gm TID PO 07/31/24 08:47 08/01/24 05:51 10 GM Patient Own Medication 1 BID EACHEYE 07/31/24 13:00 07/31/24 21:41 1 Laboratory Results Laboratory Tests 08/01/24 05:03 Chemistry Test 08/01/24 05:03 Albumin 2.5 g/dL (3.2-4.8) L Calcium Level 8.1 mg/dL (8.7-10.4) L Total Protein 4.3 g/dL (5.7-8.2) L LFT Test 08/01/24 05:03 Alanine Aminotransferase (ALT) 20 U/L (7-40) Alkaline Phosphatase 83 U/L (46-116) Aspartate Amino Transferase (AST) 19 U/L (13-40) Total Bilirubin 0.3 mg/dL (0.2-1.0) Urinalysis Test 07/26/24 14:19 Urine Color Light-orange (Yellow) Urine Clarity Ex.turbid (Clear) Urine pH 5.5 (5.0-9.0) Urine Specific [place] 1.027 (1.001-1.035) Urine Protein 3+ (Negative) H Urine Ketones Trace (Negative) Urine Blood 2+ /uL (Negative) H Urine Nitrite Negative (Negative) Urine Bilirubin Negative (Negative) Urine Urobilinogen Normal mg/dL (Negative) Urine Leukocyte Esterase Negative /uL (Negative) Urine RBC 93 /hpf (0 - 3) Urine WBC 22 /hpf (0 - 3) Urine WBC Clumps Present /hpf (None Seen) Urine Squamous Epithelial Cells None seen /hpf (<5) Urine Amorphous Crystals Few /hpf (None Seen) Urine Bacteria Few /hpf (None Seen) H Urine Mucus Few (None Seen) Urine Osmolality 342 mOsm/kg Urine Creatinine 129.65 mg/dL (30.0-125.0) H Urine Sodium 22 mmol/L (40-220) L Urine Potassium 67 mmol/L (12-62) H Urine Glucose Trace mg/dL (Normal) Urine Total Protein 412.8 mg/dL (1-14) H Microbiology Microbiology Date/Time Source Procedure Growth Status 07/26/24 11:30 Stool Clostridium difficile Toxin Assay - Final Complete 07/26/24 02:28 Nose MRSA Screen - Final Complete Labs and/or images reviewed: Labs reviewed by me, Image(s) reviewed by me Assessment/Plan Assessment/Plan Acute on chronic hypoxic respiratory failure: Oxygen by nasal cannula, ABG normal Acute COPD exacerbation: Albuterol Atrovent Solu-Medrol, consult for pulmonology Dr. Sandy appreciated Possible community-acquired aspiration pneumonia: Doxycycline Levaquin Possible CHF exacerbation with BNP in the range of 500: Echocardiogram 55 percent ejection fraction consult for calculating machine operator Dr. Al Hejily appreciated ELIZABET on CKD: John cath in place and patient getting dialysis today, kidney function slowly improving Vancomycin induced nephrotoxicity vanco levels were 17.5, avoid nephrotoxic medications Dementia History of CVA with left-sided hemiplegia Multiple unstageable decubitus ulcer of the sacrum: Wound consult Hypothyroidism Elevated D-dimer 2.57 DVT ruled out PE ruled out Condition guarded Moderate malnutrition History of prolonged hospitalization for three-month at [facility] recently Superficial excoriation of the left hand: Bactroban ointment Time spent 65 minutes Patient is full code General condition poor Plan discussed with: Patient My Orders Orders - KATLYN GUTIERREZ MD Procedure Category Date Status Time Patients Own PHA 07/31/24 In Process Medication 13:00 Date of Service: Aug 01, 2024 Billing Provider: KATLYN GUTIERREZ MD Common Visit Codes: 58011-[id number] CARE 30-74 MIN KATLYN GUTIERREZ MD Aug 01, 2024 09:22
--- NOTE | 2024-08-01 10:53 | DVHPN2 ---
Progress Note Date Seen: Aug 01, 2024 Resident Creating Document: ALFRED OLGUIN RESIDENT Medical Necessity Reason Pt with a Central, PICC or Fol: Yes The following are medically ne: White Catheter Reason for white catheter: Strict I&O Subjective Review of Systems Patient seen and examined at bedside. No diarrhea at this point. No other complaints. Objective vital signs Vital Sign Date Time Temp Pulse Resp B/P (MAP) Pulse Ox O2 Delivery O2 Flow Rate FiO2 08/01/24 10:24 73 18 100 08/01/24 09:05 98.2 141/53 (82) 98.2 08/01/24 06:41 Nasal Cannula 2.0 08/01/24 06:41 28 Total Intake and Output 07/31/24 07/31/24 08/01/24 15:00 23:00 07:00 Intake Total 350 ml 350 ml 200 ml Output Total 100 ml 50 ml Balance 350 ml 250 ml 150 ml medications Current Medications Medications Dose Ordered Sig/Alo Route Start Time Stop Time Status Last Admin Dose Admin Sodium Chloride 10 ml Q8HR IV 07/25/24 06:00 08/01/24 05:54 10 ML Acetaminophen/ Hydrocodone Bitart 1 tab Q4HP PRN PO 07/24/24 23:15 Ondansetron HCl 4 mg Q4HP PRN IV 07/24/24 23:15 07/25/24 02:14 4 MG Nitroglycerin 0.4 mg Q5MINP PRN SL 07/24/24 23:15 Morphine Sulfate 2 mg Q30M PRN IV 07/24/24 23:15 Levofloxacin/ Dextrose 100 ml @ 66.667 mls/ hr EOD IV 07/26/24 10:00 07/30/24 10:41 66.667 MLS/HR Methylprednisolone Sodium Succinate 40 mg BID IV 07/25/24 10:00 07/31/24 21:40 40 MG Levothyroxine Sodium 100 mcg DAILY PO 07/25/24 10:00 08/01/24 09:30 100 MCG Albuterol 2.5 mg Q4HR NEB 07/25/24 02:00 08/01/24 10:18 2.5 MG Ipratropium [place] 0.5 mg Q4HR NEB 07/25/24 02:00 08/01/24 10:18 0.5 MG Morphine Sulfate 2 mg Q4HPRN PRN IV 07/25/24 02:15 07/25/24 02:14 2 MG Heparin Sodium (Porcine) 5,000 units Q12HR SC 07/25/24 10:00 08/01/24 09:51 5,000 UNITS Doxycycline Hyclate 250 ml @ 125 mls/hr Q12H IV 07/25/24 06:15 08/01/24 05:55 125 MLS/HR Atorvastatin Calcium 20 mg HS PO 07/27/24 22:00 07/31/24 21:34 20 MG Metronidazole 100 ml @ 100 mls/hr Q8HR IV 07/27/24 22:00 08/01/24 05:55 100 MLS/HR Vancomycin HCl 125 mg QID PO 07/27/24 18:00 08/01/24 05:53 125 MG Furosemide 80 mg BIDD IV 07/27/24 18:00 08/01/24 05:55 80 MG Clonidine HCl 0.2 mg Q6HP PRN PO 07/30/24 14:15 07/31/24 17:34 0.2 MG Zirconium Oxide 10 gm TID PO 07/31/24 08:47 08/01/24 05:51 10 GM Patient Own Medication 1 BID EACHEYE 07/31/24 13:00 08/01/24 09:29 1 Examination General Appearance: Cooperative. Well developed. Well nourished. NAD Head Exam: Normal inspection Neck Exam: Normal inspection. Non-tender. Normal alignment Pulmonary/Respiratory: Chest non-tender. Clear bilateral breath sounds Cardiovascular/Chest: Regular rate and rhythm. No murmurs. No JVD. Peripheral Pulses: 2+ Radial (R). 2+ Radial (L). 2+ Pedal (R). 2+ Pedal (L) Abdominal Exam: Normal bowel sounds. Soft. Nontender. No hepatospenomegaly. No masses Ankle Exam: Negative ankle edema Lower extremities: Negative lower extremity edema Neuro/Mental Status: A&O x4. Coherent laboratory and microbiology Laboratory Tests 08/01/24 05:03 Test 08/01/24 05:03 Range/Units Serum Glucose 107 H 74-106 mg/dL Microbiology Date/Time Source Procedure Growth Status 07/26/24 11:30 Stool Clostridium difficile Toxin Assay - Final Complete 07/26/24 02:28 Nose MRSA Screen - Final Complete Problem List/Assessment/Plan Problem List/Assessment/Plan ELIZABET with ATN likely due to tubular necrosis suspected vancomycin toxicity needing HD CKD stage 3 Diabetes mellitus type 2 Dementia History of CVA with left-sided hemiplegia Decubitus ulcer of sacrum Community-acquired pneumonia C diff infection Plan/recommendation Plan discussed with Dr Oshea. -Plan for dialysis today. -Avoid further nephrotoxic drugs -Recommend ID consultation given multiple antibiotic use concerning worsening kidney function. -Continue phosphate binder p.o. and sodium zirconium 10 mg p.o. daily. -Strict I and O -Ultrasound of the kidney shows nonobstructing kidney stone -Echo:Normal left ventricular systolic function estimated ejection fraction 55%. There is a grade 1 diastolic dysfunction. Addendum Patient seen and examined, plan discussed with resident. Agree with above, we will follow closely UF 2.5 L off Plan discussed with: Patient Dietary Evaluation Review Comments: 1) Consider EN nutrition Jevity 1.2 @ 60 ml/hr goal rate 2) Advance pt diet when medically feasible to a Cardiac diet, modified per SCIENTIFIC INVESTIGATOR recommendations 3) If pt remains NPO >7 days consider TPN to meet at least 75% of estimated needs 4) Continue current plan of care Expected Outcomes/Goals: 1) Pt to receive adequate nutrition support 2) Pt diet to advance 3) F/U in 2-3 days ALFRED OLGUIN Aug 01, 2024 10:53 CASSIE OSHEA MD Aug 01, 2024 19:03
--- NOTE | 2024-08-01 21:33 | DVHPN2 ---
Progress Note - Dictate Date Seen: Aug 01, 2024 Medical Necessity Reason Pt with a Central, PICC or Fol: Yes The following are medically ne: White Catheter Reason for white catheter: Strict I&O Subjective Patient seen and examined at bedside. Remains on supplemental oxygen Overnight events reviewed vital signs Vital Sign Date Time Temp Pulse Resp B/P (MAP) Pulse Ox O2 Delivery O2 Flow Rate FiO2 08/01/24 21:00 97.4 88 17 131/53 (79) 99 97.4 08/01/24 18:40 Nasal Cannula* 2 28 Total Intake and Output 07/31/24 07/31/24 08/01/24 15:00 23:00 07:00 Intake Total 350 ml 350 ml 200 ml Output Total 100 ml 50 ml Balance 350 ml 250 ml 150 ml medications Current Medications Medications Dose Ordered Sig/Alo Route Start Time Stop Time Status Last Admin Dose Admin Sodium Chloride 10 ml Q8HR IV 07/25/24 06:00 08/01/24 05:54 10 ML Acetaminophen/ Hydrocodone Bitart 1 tab Q4HP PRN PO 07/24/24 23:15 Ondansetron HCl 4 mg Q4HP PRN IV 07/24/24 23:15 07/25/24 02:14 4 MG Nitroglycerin 0.4 mg Q5MINP PRN SL 07/24/24 23:15 Morphine Sulfate 2 mg Q30M PRN IV 07/24/24 23:15 Levofloxacin/ Dextrose 100 ml @ 66.667 mls/ hr EOD IV 07/26/24 10:00 08/01/24 17:28 66.667 MLS/HR Methylprednisolone Sodium Succinate 40 mg BID IV 07/25/24 10:00 07/31/24 21:40 40 MG Levothyroxine Sodium 100 mcg DAILY PO 07/25/24 10:00 08/01/24 09:30 100 MCG Albuterol 2.5 mg Q4HR NEB 07/25/24 02:00 08/01/24 18:40 2.5 MG Ipratropium [place] 0.5 mg Q4HR NEB 07/25/24 02:00 08/01/24 18:40 0.5 MG Morphine Sulfate 2 mg Q4HPRN PRN IV 07/25/24 02:15 07/25/24 02:14 2 MG Heparin Sodium (Porcine) 5,000 units Q12HR SC 07/25/24 10:00 08/01/24 09:51 5,000 UNITS Doxycycline Hyclate 250 ml @ 125 mls/hr Q12H IV 07/25/24 06:15 08/01/24 17:20 125 MLS/HR Atorvastatin Calcium 20 mg HS PO 07/27/24 22:00 07/31/24 21:34 20 MG Metronidazole 100 ml @ 100 mls/hr Q8HR IV 07/27/24 22:00 08/01/24 05:55 100 MLS/HR Vancomycin HCl 125 mg QID PO 07/27/24 18:00 08/01/24 17:21 125 MG Furosemide 80 mg BIDD IV 07/27/24 18:00 08/01/24 17:21 80 MG Clonidine HCl 0.2 mg Q6HP PRN PO 07/30/24 14:15 07/31/24 17:34 0.2 MG Zirconium Oxide 10 gm TID PO 07/31/24 08:47 08/01/24 14:36 10 GM Patient Own Medication 1 BID EACHEYE 07/31/24 13:00 08/01/24 09:29 1 objective Gen.: Patient lying in bed in no apparent distress. On supplemental oxygen Head: Normocephalic, atraumatic. Eyes: EOMI/PERRLA. Ears: Normal hearing. Normal anatomy. Neck/trachea: Trachea midline, supple. Nose: Normal external anatomy. Mouth: Moist mucous membranes. Chest: Decreased air entry bilaterally. Coarse breath sounds. No wheezing. No rhonchi. Cardiovascular: Positive S1, positive S2. Regular rate and rhythm. Abdomen: Positive bowel sounds in all 4 quadrants. Soft, non-tender, non- distended. : Deferred. Rectal: Deferred. Skin: Warm, dry. Intact. Extremities: 2+ radial pulses bilaterally. No lower extremity edema. Neuro: Awake, alert, oriented x3. No gross motor or sensory deficits. Cranial nerves II through XII intact. Gait not assessed. laboratory and microbiology Laboratory Tests 08/01/24 05:03 Test 08/01/24 05:03 Range/Units Serum Glucose 107 H 74-106 mg/dL Assessment/Plan Impression: Acute on chronic hypoxic respiratory failure secondary to acute exacerbation COPD Acute exacerbation of COPD Aspiration pneumonia Acute exacerbation of CHF Acute kidney injury on chronic kidney disease History of CVA with left-sided weakness Dementia with possible aspiration Unstageable decubitus ulcer History of hypothyroidism Pleural effusion Atelectasis Anemia Metabolic acidosis Events: Remains on supplemental oxygen On 2 LPM via NC Taper O2 as tolerated Improving O2 requirements Hemodialysis per Nephrology Removed 1.5 liters via HD yesterday. Continue bronchodilators Continue antibiotics Continue IV steroids Incentive spirometry Normal saline eye drops. Diurese w/ Lasix 80 mg IV BID. Monitor renal function Monitor electrolytes. Supplement as necessary. White - monitor ins and outs Head of bed elevation Aspiration precautions Wound care Labs and imaging reviewed. Rest of plan as noted below. Plan: Ultrasound venous Doppler bilateral lower extremities: No lower extremity DVT. Ventilation perfusion scan showed low probability of pulmonary embolism. Chest x-ray imaging report reviewed: Trace bilateral pleural effusions. Atelectasis Limited chest ultrasound showed not enough fluid to drain - trace to small left pleural effusion. Supplemental oxygen Keep O2 saturation above 92% IV steroids Bronchodilators IV antibiotics. Monitor Hgb Keep above 7.0 g/dL Diurese to euvolemia Monitor ins/outs. Monitor renal function. Monitor electrolytes Supplement as necessary. DVT prophylaxis-Heparin s.c. Prognosis: Poor given multiple comorbidities. Rest of plan per hospitalist and other consultants. Thank you Dr. Zay Diaz for allowing me to participate in this patient's care. Further recommendations will depend on patient's clinical course. Please do not hesitate to contact me if you have any questions or concerns. This medical document was created using an electronic medical record system with [employer] dictation system. Although this document has been carefully reviewed, there may still be some phonetic and typographical errors. These areas are purely typographical due to imperfections of the software programs, and do not reflect any compromise in the patient's medical care. Dietary Evaluation Review Comments: 1) Consider EN nutrition Jevity 1.2 @ 60 ml/hr goal rate 2) Advance pt diet when medically feasible to a Cardiac diet, modified per MIGRATION SPECIALIST recommendations 3) If pt remains NPO >7 days consider TPN to meet at least 75% of estimated needs 4) Continue current plan of care Expected Outcomes/Goals: 1) Pt to receive adequate nutrition support 2) Pt diet to advance 3) F/U in 2-3 days Plan discussed with: Patient, Other (DANISH Guzmán) TIFFANIE JIM MD Aug 01, 2024 21:33
[2024-08-02] VITALS (21 sets, daily range): BP systolic 129–187; BP diastolic 45–72; PULSE 68–85; RESP 16–20; TEMP 97.5–98.5; O2SAT 94–100
[2024-08-02 05:09] LABS: Basophils # (auto) 0 10 ^3/uL (0-0.2); Eosinophils # (auto) 0 10 ^3/uL (0-0.8); Hematocrit 23.7 % (41.0-53.0); Hemoglobin 7.8 g/dL (13.5-17.5); Lymphocytes # (auto) 0.5 10 ^3/uL (0.4-5.4); Lymphocytes % (auto) 4.3 % (10.0-50.0); Mean Corpuscular Hemoglobin 29.9 pg (28.0-32.0); Mean Corpuscular Volume 90.5 fL (80.0-100.0); Monocytes # (auto) 0.4 10 ^3/uL (0-1.3); Monocytes % (auto) 2.8 % (0.0-12.0); Neutrophils # (auto) 11.9 10 ^3/uL (1.6-8.6); Neutrophils % (auto) 92.9 % (37.0-80.0); Platelet Count (auto) 177 10^3/uL (140-450); Red Blood Cells 2.62 10^6/uL (4.5-5.90); Red Cell Distribution Width 17.5 % (11.8-14.3); White Blood Cell 12.8 10^3/uL (4.4-10.8)
[2024-08-02 05:27] LABS: Alanine Aminotransferase 24 U/L (7-40); Albumin 2.7 g/dL (3.2-4.8); Alkaline Phosphatase 85 U/L (46-116); Anion Gap 13 (5-15); Aspartate Aminotransferase 26 U/L (13-40); BUN/Creatinine Ratio 9.1 (10.0-20.0); Blood Urea Nitrogen 60 mg/dL (9-23); Carbon Dioxide 23 mmol/L (20-31); Chloride 102 mmol/L (98-107); Glucose 102 mg/dL (74-106); Potassium 4.3 mmol/L (3.5-5.1); Sodium 138 mmol/L (136-145)
[2024-08-02 05:28] LABS: Bilirubin, Total 0.4 mg/dL (0.2-1.0); Total Protein 4.7 g/dL (5.7-8.2)
--- NOTE | 2024-08-02 08:58 | DVHPN2 ---
Progress Note Date Seen: Aug 02, 2024 Resident Creating Document: ALFRED OLGUIN RESIDENT Medical Necessity Reason Pt with a Central, PICC or Fol: Yes The following are medically ne: White Catheter Reason for white catheter: Strict I&O Subjective Review of Systems Patient seen and examined at bedside. patient underwent dialysis yesterday. Objective vital signs Vital Sign Date Time Temp Pulse Resp B/P (MAP) Pulse Ox O2 Delivery O2 Flow Rate FiO2 08/02/24 08:31 98.0 80 16 172/63 (99) 97 98.0 08/02/24 05:52 Nasal Cannula* 2 28 Total Intake and Output 08/01/24 08/01/24 08/02/24 15:00 23:00 07:00 Intake Total 250 ml 300 ml 250 ml Output Total 60 ml 50 ml Balance 250 ml 240 ml 200 ml medications Current Medications Medications Dose Ordered Sig/Alo Route Start Time Stop Time Status Last Admin Dose Admin Sodium Chloride 10 ml Q8HR IV 07/25/24 06:00 08/02/24 05:40 10 ML Acetaminophen/ Hydrocodone Bitart 1 tab Q4HP PRN PO 07/24/24 23:15 Ondansetron HCl 4 mg Q4HP PRN IV 07/24/24 23:15 07/25/24 02:14 4 MG Nitroglycerin 0.4 mg Q5MINP PRN SL 07/24/24 23:15 Morphine Sulfate 2 mg Q30M PRN IV 07/24/24 23:15 Levofloxacin/ Dextrose 100 ml @ 66.667 mls/ hr EOD IV 07/26/24 10:00 08/01/24 17:28 66.667 MLS/HR Methylprednisolone Sodium Succinate 40 mg BID IV 07/25/24 10:00 08/01/24 22:14 40 MG Levothyroxine Sodium 100 mcg DAILY PO 07/25/24 10:00 08/01/24 09:30 100 MCG Albuterol 2.5 mg Q4HR NEB 07/25/24 02:00 08/02/24 05:52 2.5 MG Ipratropium [place] 0.5 mg Q4HR NEB 07/25/24 02:00 08/02/24 05:52 0.5 MG Morphine Sulfate 2 mg Q4HPRN PRN IV 07/25/24 02:15 07/25/24 02:14 2 MG Heparin Sodium (Porcine) 5,000 units Q12HR SC 07/25/24 10:00 08/01/24 22:08 5,000 UNITS Doxycycline Hyclate 250 ml @ 125 mls/hr Q12H IV 07/25/24 06:15 08/02/24 05:37 125 MLS/HR Atorvastatin Calcium 20 mg HS PO 07/27/24 22:00 08/01/24 22:15 20 MG Metronidazole 100 ml @ 100 mls/hr Q8HR IV 07/27/24 22:00 08/02/24 05:37 100 MLS/HR Vancomycin HCl 125 mg QID PO 07/27/24 18:00 08/02/24 05:40 125 MG Furosemide 80 mg BIDD IV 07/27/24 18:00 08/02/24 05:39 80 MG Clonidine HCl 0.2 mg Q6HP PRN PO 07/30/24 14:15 07/31/24 17:34 0.2 MG Zirconium Oxide 10 gm TID PO 07/31/24 08:47 08/02/24 05:37 10 GM Patient Own Medication 1 BID EACHEYE 07/31/24 13:00 08/01/24 22:16 1 Examination General Appearance: Cooperative. Well developed. Well nourished. NAD Head Exam: Normal inspection Neck Exam: Normal inspection. Non-tender. Normal alignment Pulmonary/Respiratory: Chest non-tender. Clear bilateral breath sounds Cardiovascular/Chest: Regular rate and rhythm. No murmurs. No JVD. Peripheral Pulses: 2+ Radial (R). 2+ Radial (L). 2+ Pedal (R). 2+ Pedal (L) Abdominal Exam: Normal bowel sounds. Soft. Nontender. No hepatospenomegaly. No masses Ankle Exam: Negative ankle edema Lower extremities: Negative lower extremity edema Neuro/Mental Status: A&O x4. Coherent laboratory and microbiology Laboratory Tests 08/02/24 04:45 Test 08/02/24 04:45 Range/Units Serum Glucose 102 74-106 mg/dL Microbiology Date/Time Source Procedure Growth Status 07/26/24 11:30 Stool Clostridium difficile Toxin Assay - Final Complete 07/26/24 02:28 Nose MRSA Screen - Final Complete Problem List/Assessment/Plan Problem List/Assessment/Plan ELIZABET with ATN likely due to suspected vancomycin toxicity needing HD CKD stage 3 Diabetes mellitus type 2 Dementia History of CVA with left-sided hemiplegia Decubitus ulcer of sacrum Community-acquired pneumonia C diff infection Plan/recommendation Plan discussed with Dr Oshea. -Underwent dialysis yesterday. 2.5 liter UF done. -Avoid further nephrotoxic drugs -Recommend ID consultation given multiple antibiotic use concerning worsening kidney function. -Continue phosphate binder p.o. and sodium zirconium 10 mg p.o. daily. -Strict I and O -Ultrasound of the kidney shows nonobstructing kidney stone -Echo:Normal left ventricular systolic function estimated ejection fraction 55%. There is a grade 1 diastolic dysfunction. Addendum Patient seen and examined, plan discussed with resident. Agree with above, we will follow closely IR consulted for tunneled catheter hospital social worker for chair time Remove John catheter No significant urine output monitor for signs of renal recovery Hemodialysis tomorrow Plan discussed with: Patient, Other (RN) Dietary Evaluation Review Comments: 1) Consider EN nutrition Jevity 1.2 @ 60 ml/hr goal rate 2) Advance pt diet when medically feasible to a Cardiac diet, modified per INFECTION CONTROL RN recommendations 3) If pt remains NPO >7 days consider TPN to meet at least 75% of estimated needs 4) Continue current plan of care Expected Outcomes/Goals: 1) Pt to receive adequate nutrition support 2) Pt diet to advance 3) F/U in 2-3 days ALFRED OLGUIN Aug 02, 2024 08:58 CASSIE OSHEA MD Aug 02, 2024 14:49
--- NOTE | 2024-08-02 09:43 | DVHPN2 ---
Reviewed: Care Plan, H&P, Labs, Medications, Previous Orders, Radiology Changes from previous H/P or p: No Changes Eyes: No Pain, No Vision change, No Conjunctivae inflammation, No Eyelid inflammation, No Other, No Redness ENT: No Ear pain, No Ear discharge, No Nose pain, No Nose discharge, No Nose congestion, No Mouth pain, No Mouth swelling, No Throat pain, No Throat swelling, No Other Cardiovascular: No Chest Pain, No Palpitations, No Orthopnea, No Paroxysmal Noc. Dyspnea, No Edema, No Lt Headedness, No Other Respiratory: Cough, Shortness of breath, Sputum Gastrointestinal: No Nausea, No Vomiting, No Abdominal Pain, No Diarrhea, No Constipation, No Melena, No Hematochezia, No Other Genitourinary: No Dysuria, No Frequency, No Incontinence, No Hematuria, No Retention, No Other Musculoskeletal: No other, No neck pain, No shoulder pain, No arm pain, No back pain, No hand pain, No leg pain, No foot pain Skin: No Rash, No Lesions, No Jaundice, No Bruising, No Other Objective Vitals Vital Signs Date Time Temp Pulse Resp B/P (MAP) Pulse Ox O2 Delivery O2 Flow Rate FiO2 08/02/24 08:31 98.0 80 16 172/63 (99) 97 98.0 08/02/24 05:52 Nasal Cannula* 2 28 Intake/Output Intake and Output 08/02/24 07:00 Intake Total 800 ml Output Total 110 ml Balance 690 ml Intake Oral 450 ml IV Total 350 ml Output Urine Total 110 ml Medications Current Medications Medications Dose Ordered Sig/Alo Route Start Time Stop Time Status Last Admin Dose Admin Sodium Chloride 10 ml Q8HR IV 07/25/24 06:00 08/02/24 05:40 10 ML Acetaminophen/ Hydrocodone Bitart 1 tab Q4HP PRN PO 07/24/24 23:15 Ondansetron HCl 4 mg Q4HP PRN IV 07/24/24 23:15 07/25/24 02:14 4 MG Nitroglycerin 0.4 mg Q5MINP PRN SL 07/24/24 23:15 Morphine Sulfate 2 mg Q30M PRN IV 07/24/24 23:15 Levofloxacin/ Dextrose 100 ml @ 66.667 mls/ hr EOD IV 07/26/24 10:00 08/01/24 17:28 66.667 MLS/HR Methylprednisolone Sodium Succinate 40 mg BID IV 07/25/24 10:00 08/01/24 22:14 40 MG Levothyroxine Sodium 100 mcg DAILY PO 07/25/24 10:00 08/01/24 09:30 100 MCG Albuterol 2.5 mg Q4HR NEB 07/25/24 02:00 08/02/24 05:52 2.5 MG Ipratropium [place] 0.5 mg Q4HR NEB 07/25/24 02:00 08/02/24 05:52 0.5 MG Morphine Sulfate 2 mg Q4HPRN PRN IV 07/25/24 02:15 07/25/24 02:14 2 MG Heparin Sodium (Porcine) 5,000 units Q12HR SC 07/25/24 10:00 08/01/24 22:08 5,000 UNITS Doxycycline Hyclate 250 ml @ 125 mls/hr Q12H IV 07/25/24 06:15 08/02/24 05:37 125 MLS/HR Atorvastatin Calcium 20 mg HS PO 07/27/24 22:00 08/01/24 22:15 20 MG Metronidazole 100 ml @ 100 mls/hr Q8HR IV 07/27/24 22:00 08/02/24 05:37 100 MLS/HR Vancomycin HCl 125 mg QID PO 07/27/24 18:00 08/02/24 05:40 125 MG Furosemide 80 mg BIDD IV 07/27/24 18:00 08/02/24 05:39 80 MG Clonidine HCl 0.2 mg Q6HP PRN PO 07/30/24 14:15 07/31/24 17:34 0.2 MG Zirconium Oxide 10 gm TID PO 07/31/24 08:47 08/02/24 05:37 10 GM Patient Own Medication 1 BID EACHEYE 07/31/24 13:00 08/01/24 22:16 1 Laboratory Results Laboratory Tests 08/02/24 04:45 Chemistry Test 08/02/24 04:45 Albumin 2.7 g/dL (3.2-4.8) L Calcium Level 8.0 mg/dL (8.7-10.4) L Total Protein 4.7 g/dL (5.7-8.2) L LFT Test 08/02/24 04:45 Alanine Aminotransferase (ALT) 24 U/L (7-40) Alkaline Phosphatase 85 U/L (46-116) Aspartate Amino Transferase (AST) 26 U/L (13-40) Total Bilirubin 0.4 mg/dL (0.2-1.0) Urinalysis Test 07/26/24 14:19 Urine Color Light-orange (Yellow) Urine Clarity Ex.turbid (Clear) Urine pH 5.5 (5.0-9.0) Urine Specific [place] 1.027 (1.001-1.035) Urine Protein 3+ (Negative) H Urine Ketones Trace (Negative) Urine Blood 2+ /uL (Negative) H Urine Nitrite Negative (Negative) Urine Bilirubin Negative (Negative) Urine Urobilinogen Normal mg/dL (Negative) Urine Leukocyte Esterase Negative /uL (Negative) Urine RBC 93 /hpf (0 - 3) Urine WBC 22 /hpf (0 - 3) Urine WBC Clumps Present /hpf (None Seen) Urine Squamous Epithelial Cells None seen /hpf (<5) Urine Amorphous Crystals Few /hpf (None Seen) Urine Bacteria Few /hpf (None Seen) H Urine Mucus Few (None Seen) Urine Osmolality 342 mOsm/kg Urine Creatinine 129.65 mg/dL (30.0-125.0) H Urine Sodium 22 mmol/L (40-220) L Urine Potassium 67 mmol/L (12-62) H Urine Glucose Trace mg/dL (Normal) Urine Total Protein 412.8 mg/dL (1-14) H Microbiology Microbiology Date/Time Source Procedure Growth Status 07/26/24 11:30 Stool Clostridium difficile Toxin Assay - Final Complete 07/26/24 02:28 Nose MRSA Screen - Final Complete Labs and/or images reviewed: Labs reviewed by me, Image(s) reviewed by me Assessment/Plan Assessment/Plan Acute on chronic hypoxic respiratory failure: Oxygen by nasal cannula, ABG normal Acute COPD exacerbation: Albuterol Atrovent Solu-Medrol, consult for pulmonology Dr. Sandy appreciated Possible community-acquired aspiration pneumonia: Doxycycline Levaquin Possible CHF exacerbation with BNP in the range of 500: Echocardiogram 55 percent ejection fraction consult for flooring professional Dr. Thayer appreciated ELIZABET on CKD: John cath in place and patient getting dialysis today, kidney function slowly improving Vancomycin induced nephrotoxicity vanco levels were 17.5, avoid nephrotoxic medications Dementia History of CVA with left-sided hemiplegia Multiple unstageable decubitus ulcer of the sacrum: Wound consult Hypothyroidism Elevated D-dimer 2.57 DVT ruled out PE ruled out Condition guarded Moderate malnutrition History of prolonged hospitalization for three-month at [facility] recently Superficial excoriation of the left hand: Bactroban ointment SWELLING OF THE LEFT UPPER EXTREMITY: VENOUS ULTRASOUND ORDERED TO RULE OUT DVT Time spent 65 minutes Patient is full code General condition poor Plan discussed with: Patient My Orders Orders - KATLYN GUTIERREZ MD Procedure Category Date Status Time Complete Blood Count LAB 08/03/24 Verified 04:00 Complete Blood Count LAB 08/04/24 Verified 04:00 Complete Blood Count LAB 08/05/24 Verified 04:00 Complete Blood Count LAB 08/06/24 Verified 04:00 Comprehensive LAB 08/03/24 Verified Metabolic Panel 04:00 Comprehensive LAB 08/04/24 Verified Metabolic Panel 04:00 Comprehensive LAB 08/05/24 Verified Metabolic Panel 04:00 Comprehensive LAB 08/06/24 Verified Metabolic Panel 04:00 Insert Midline ORDERS 08/01/24 Transmitted 15:11 Date of Service: Aug 02, 2024 Billing Provider: KATLYN GUTIERREZ MD Common Visit Codes: 63334-[id number] CARE 30-74 MIN KATLYN GUTIERREZ MD Aug 02, 2024 09:42
--- NOTE | 2024-08-02 12:17 | DVH ---
LEFT Upper Extremity Venous Duplex Clinical History: EXTREME SWELLING OF THE LEFT UPPER EXTREMITY RULED OUT DVT Comparison: US LT UPPER DVT on DOS: 07/27/24, US BILAT LOWER DVT on DOS: 07/25/24 Findings: Duplex Doppler evaluation of the venous system of the LEFT lower neck and upper extremity including c olor Doppler and spectral/pulsed waveform analysis was performed. The internal jugular vein demonstrates appropriate compressibility and waveform variability . The subclavian vein is patent on color Doppler evaluation without intraluminal thrombus and demonstra pepe waveform variability . The visualized portion of the brachiocephalic vein is patent on color Doppler evaluation without intr aluminal thrombus and demonstrates waveform variability . The axillary vein demonstrates appropriate compressibility and waveform variability . The brachial veins demonstrate appropriate compressibility and patency on Doppler evaluation. Cephalic vein demonstrates thrombus,. basilic vein, radial vein, ulnar vein not visualized. Impression: Thrombus in the cephalic vein. If clinical concern/symptoms persist or worsen, short-interval follow-up study is suggested.
--- NOTE | 2024-08-02 21:10 | DVHPN2 ---
Progress Note - Dictate Date Seen: Aug 02, 2024 Medical Necessity Reason Pt with a Central, PICC or Fol: Yes The following are medically ne: White Catheter Reason for white catheter: Strict I&O Subjective Patient seen and examined at bedside. Remains on supplemental oxygen Overnight events reviewed vital signs Vital Sign Date Time Temp Pulse Resp B/P (MAP) Pulse Ox O2 Delivery O2 Flow Rate FiO2 08/02/24 21:00 97.8 74 18 134/64 (87) 94 97.8 08/02/24 20:00 Nasal Cannula* 2 28 Total Intake and Output 08/01/24 08/01/24 08/02/24 15:00 23:00 07:00 Intake Total 250 ml 300 ml 250 ml Output Total 60 ml 50 ml Balance 250 ml 240 ml 200 ml medications Current Medications Medications Dose Ordered Sig/Alo Route Start Time Stop Time Status Last Admin Dose Admin Sodium Chloride 10 ml Q8HR IV 07/25/24 06:00 08/02/24 14:01 10 ML Acetaminophen/ Hydrocodone Bitart 1 tab Q4HP PRN PO 07/24/24 23:15 Ondansetron HCl 4 mg Q4HP PRN IV 07/24/24 23:15 07/25/24 02:14 4 MG Nitroglycerin 0.4 mg Q5MINP PRN SL 07/24/24 23:15 Morphine Sulfate 2 mg Q30M PRN IV 07/24/24 23:15 Levofloxacin/ Dextrose 100 ml @ 66.667 mls/ hr EOD IV 07/26/24 10:00 08/01/24 17:28 66.667 MLS/HR Levothyroxine Sodium 100 mcg DAILY PO 07/25/24 10:00 08/02/24 11:42 100 MCG Albuterol 2.5 mg Q4HR NEB 07/25/24 02:00 08/02/24 17:56 2.5 MG Ipratropium [place] 0.5 mg Q4HR NEB 07/25/24 02:00 08/02/24 17:56 0.5 MG Morphine Sulfate 2 mg Q4HPRN PRN IV 07/25/24 02:15 07/25/24 02:14 2 MG Heparin Sodium (Porcine) 5,000 units Q12HR SC 07/25/24 10:00 08/02/24 11:45 5,000 UNITS Atorvastatin Calcium 20 mg HS PO 07/27/24 22:00 08/01/24 22:15 20 MG Metronidazole 100 ml @ 100 mls/hr Q8HR IV 07/27/24 22:00 08/02/24 13:54 100 MLS/HR Vancomycin HCl 125 mg QID PO 07/27/24 18:00 08/02/24 17:46 125 MG Furosemide 80 mg BIDD IV 07/27/24 18:00 08/02/24 17:48 80 MG Clonidine HCl 0.2 mg Q6HP PRN PO 07/30/24 14:15 08/02/24 16:55 0.2 MG Zirconium Oxide 10 gm TID PO 07/31/24 08:47 08/02/24 05:37 10 GM Patient Own Medication 1 BID EACHEYE 07/31/24 13:00 08/02/24 11:43 1 objective Gen.: Patient lying in bed in no apparent distress. On supplemental oxygen Head: Normocephalic, atraumatic. Eyes: EOMI/PERRLA. Ears: Normal hearing. Normal anatomy. Neck/trachea: Trachea midline, supple. Nose: Normal external anatomy. Mouth: Moist mucous membranes. Chest: Decreased air entry bilaterally. Coarse breath sounds. No wheezing. No rhonchi. Cardiovascular: Positive S1, positive S2. Regular rate and rhythm. Abdomen: Positive bowel sounds in all 4 quadrants. Soft, non-tender, non- distended. : Deferred. Rectal: Deferred. Skin: Warm, dry. Intact. Extremities: 2+ radial pulses bilaterally. No lower extremity edema. Neuro: Awake, alert, oriented x3. No gross motor or sensory deficits. Cranial nerves II through XII intact. Gait not assessed. laboratory and microbiology Laboratory Tests 08/02/24 04:45 Test 08/02/24 04:45 Range/Units Serum Glucose 102 74-106 mg/dL Assessment/Plan Impression: Acute on chronic hypoxic respiratory failure secondary to acute exacerbation COPD Acute exacerbation of COPD Aspiration pneumonia Acute exacerbation of CHF Acute kidney injury on chronic kidney disease History of CVA with left-sided weakness Dementia with possible aspiration Unstageable decubitus ulcer History of hypothyroidism Pleural effusion Atelectasis Anemia Metabolic acidosis Events: Remains on supplemental oxygen On 2 LPM via NC Taper O2 as tolerated Improving O2 requirements Continue bronchodilators Continue antibiotics - Levaquin, Flagyl, vancomycin PO. Stopped doxycycline (completed 7-day course) Stopped steroids (completed 7-day course) Incentive spirometry Normal saline eye drops. Diurese w/ Lasix 80 mg IV BID. Monitor renal function Monitor electrolytes. Supplement as necessary. White - monitor ins and outs Hemodialysis per Nephrology Head of bed elevation Aspiration precautions Wound care Labs and imaging reviewed. Rest of plan as noted below. Plan: Ultrasound venous Doppler bilateral lower extremities: No lower extremity DVT. Ventilation perfusion scan showed low probability of pulmonary embolism. Chest x-ray imaging report reviewed: Trace bilateral pleural effusions. Atelectasis Limited chest ultrasound showed not enough fluid to drain - trace to small left pleural effusion. Supplemental oxygen Keep O2 saturation above 92% IV steroids - completed course Bronchodilators IV antibiotics. Monitor Hgb Keep above 7.0 g/dL Diurese to euvolemia Monitor ins/outs. Monitor renal function. Monitor electrolytes Supplement as necessary. DVT prophylaxis-Heparin s.c. Prognosis: Poor given multiple comorbidities. Rest of plan per hospitalist and other consultants. Thank you Dr. Zay Diaz for allowing me to participate in this patient's care. Further recommendations will depend on patient's clinical course. Please do not hesitate to contact me if you have any questions or concerns. This medical document was created using an electronic medical record system with [employer] dictation system. Although this document has been carefully reviewed, there may still be some phonetic and typographical errors. These areas are purely typographical due to imperfections of the software programs, and do not reflect any compromise in the patient's medical care. Dietary Evaluation Review Comments: 1) Consider EN nutrition Jevity 1.2 @ 60 ml/hr goal rate 2) Advance pt diet when medically feasible to a Cardiac diet, modified per STORY EDITOR recommendations 3) If pt remains NPO >7 days consider TPN to meet at least 75% of estimated needs 4) Continue current plan of care Expected Outcomes/Goals: 1) Pt to receive adequate nutrition support 2) Pt diet to advance 3) F/U in 2-3 days Plan discussed with: Patient, Other (RN Marek) TIFFANIE JIM MD Aug 02, 2024 21:10
[2024-08-03] VITALS (15 sets, daily range): BP systolic 104–156; BP diastolic 36–64; PULSE 65–91; RESP 16–20; TEMP 36.6; O2SAT 96–100
[2024-08-03 05:40] LABS: Basophils # (auto) 0 10 ^3/uL (0-0.2); Eosinophils # (auto) 0 10 ^3/uL (0-0.8); Eosinophils % (auto) 0.2 % (0.0-7.0); Monocytes # (auto) 0.9 10 ^3/uL (0-1.3); Neutrophils # (auto) 7.2 10 ^3/uL (1.6-8.6)
[2024-08-03 05:42] LABS: Basophils % (auto) 0.2 % (0.0-2.0); Hemoglobin 7.6 g/dL (13.5-17.5); Lymphocytes # (auto) 1.3 10 ^3/uL (0.4-5.4); Lymphocytes % (auto) 13.8 % (10.0-50.0); Mean Corpuscular Hgb Conc. 34.3 g/dL (32.0-36.0); Mean Corpuscular Volume 90.4 fL (80.0-100.0); Monocytes % (auto) 9.8 % (0.0-12.0); Nucleated Red Blood Cells % 0.2 %; Platelet Count (auto) 147 10^3/uL (140-450); Red Blood Cells 2.44 10^6/uL (4.5-5.90); Red Cell Distribution Width 17.3 % (11.8-14.3); White Blood Cell 9.5 10^3/uL (4.4-10.8)
[2024-08-03 06:04] LABS: Alanine Aminotransferase 22 U/L (7-40); Albumin 2.4 g/dL (3.2-4.8); Alkaline Phosphatase 79 U/L (46-116); Anion Gap 14 (5-15); Aspartate Aminotransferase 27 U/L (13-40); Calcium 7.8 mg/dL (8.7-10.4); Carbon Dioxide 22 mmol/L (20-31); Chloride 102 mmol/L (98-107); Glucose 78 mg/dL (74-106); Potassium 4.3 mmol/L (3.5-5.1); Sodium 138 mmol/L (136-145)
[2024-08-03 06:05] LABS: Bilirubin, Total 0.4 mg/dL (0.2-1.0); Blood Urea Nitrogen 70 mg/dL (9-23); Total Protein 4.4 g/dL (5.7-8.2)
--- NOTE | 2024-08-03 10:14 | DVHPN2 ---
Reviewed: Care Plan, H&P, Labs, Medications, Previous Orders, Radiology Changes from previous H/P or p: No Changes Eyes: No Pain, No Vision change, No Conjunctivae inflammation, No Eyelid inflammation, No Other, No Redness ENT: No Ear pain, No Ear discharge, No Nose pain, No Nose discharge, No Nose congestion, No Mouth pain, No Mouth swelling, No Throat pain, No Throat swelling, No Other Cardiovascular: No Chest Pain, No Palpitations, No Orthopnea, No Paroxysmal Noc. Dyspnea, No Edema, No Lt Headedness, No Other Respiratory: Cough, Shortness of breath, Sputum Gastrointestinal: No Nausea, No Vomiting, No Abdominal Pain, No Diarrhea, No Constipation, No Melena, No Hematochezia, No Other Genitourinary: No Dysuria, No Frequency, No Incontinence, No Hematuria, No Retention, No Other Musculoskeletal: No other, No neck pain, No shoulder pain, No arm pain, No back pain, No hand pain, No leg pain, No foot pain Skin: No Rash, No Lesions, No Jaundice, No Bruising, No Other Objective Vitals Vital Signs Date Time Temp Pulse Resp B/P (MAP) Pulse Ox O2 Delivery O2 Flow Rate FiO2 08/03/24 09:00 67 18 127/50 (75) 96 08/03/24 06:01 Nasal Cannula* 2 28 08/03/24 04:30 97.9 97.9 Intake/Output Intake and Output 08/03/24 07:00 Intake Total 690 ml Output Total 90 ml Balance 600 ml Intake Oral 490 ml IV Total 200 ml Output Urine Total 90 ml Medications Current Medications Medications Dose Ordered Sig/Alo Route Start Time Stop Time Status Last Admin Dose Admin Sodium Chloride 10 ml Q8HR IV 07/25/24 06:00 08/03/24 05:54 10 ML Ondansetron HCl 4 mg Q4HP PRN IV 07/24/24 23:15 07/25/24 02:14 4 MG Nitroglycerin 0.4 mg Q5MINP PRN SL 07/24/24 23:15 Levofloxacin/ Dextrose 100 ml @ 66.667 mls/ hr EOD IV 07/26/24 10:00 08/01/24 17:28 66.667 MLS/HR Levothyroxine Sodium 100 mcg DAILY PO 07/25/24 10:00 08/02/24 11:42 100 MCG Albuterol 2.5 mg Q4HR NEB 07/25/24 02:00 08/03/24 06:01 2.5 MG Ipratropium [place] 0.5 mg Q4HR NEB 07/25/24 02:00 08/03/24 06:01 0.5 MG Heparin Sodium (Porcine) 5,000 units Q12HR SC 07/25/24 10:00 08/02/24 11:45 5,000 UNITS Atorvastatin Calcium 20 mg HS PO 07/27/24 22:00 08/01/24 22:15 20 MG Metronidazole 100 ml @ 100 mls/hr Q8HR IV 07/27/24 22:00 08/03/24 05:44 100 MLS/HR Vancomycin HCl 125 mg QID PO 07/27/24 18:00 08/02/24 17:46 125 MG Furosemide 80 mg BIDD IV 07/27/24 18:00 08/03/24 05:54 80 MG Clonidine HCl 0.2 mg Q6HP PRN PO 07/30/24 14:15 08/02/24 16:55 0.2 MG Zirconium Oxide 10 gm TID PO 07/31/24 08:47 08/02/24 05:37 10 GM Patient Own Medication 1 BID EACHEYE 07/31/24 13:00 08/02/24 11:43 1 Laboratory Results Laboratory Tests 08/03/24 05:00 Chemistry Test 08/03/24 05:00 Albumin 2.4 g/dL (3.2-4.8) L Calcium Level 7.8 mg/dL (8.7-10.4) L Total Protein 4.4 g/dL (5.7-8.2) L LFT Test 08/03/24 05:00 Alanine Aminotransferase (ALT) 22 U/L (7-40) Alkaline Phosphatase 79 U/L (46-116) Aspartate Amino Transferase (AST) 27 U/L (13-40) Total Bilirubin 0.4 mg/dL (0.2-1.0) Urinalysis Test 07/26/24 14:19 Urine Color Light-orange (Yellow) Urine Clarity Ex.turbid (Clear) Urine pH 5.5 (5.0-9.0) Urine Specific [place] 1.027 (1.001-1.035) Urine Protein 3+ (Negative) H Urine Ketones Trace (Negative) Urine Blood 2+ /uL (Negative) H Urine Nitrite Negative (Negative) Urine Bilirubin Negative (Negative) Urine Urobilinogen Normal mg/dL (Negative) Urine Leukocyte Esterase Negative /uL (Negative) Urine RBC 93 /hpf (0 - 3) Urine WBC 22 /hpf (0 - 3) Urine WBC Clumps Present /hpf (None Seen) Urine Squamous Epithelial Cells None seen /hpf (<5) Urine Amorphous Crystals Few /hpf (None Seen) Urine Bacteria Few /hpf (None Seen) H Urine Mucus Few (None Seen) Urine Osmolality 342 mOsm/kg Urine Creatinine 129.65 mg/dL (30.0-125.0) H Urine Sodium 22 mmol/L (40-220) L Urine Potassium 67 mmol/L (12-62) H Urine Glucose Trace mg/dL (Normal) Urine Total Protein 412.8 mg/dL (1-14) H Microbiology Microbiology Date/Time Source Procedure Growth Status 07/26/24 11:30 Stool Clostridium difficile Toxin Assay - Final Complete 07/26/24 02:28 Nose MRSA Screen - Final Complete Labs and/or images reviewed: Labs reviewed by me, Image(s) reviewed by me Assessment/Plan Assessment/Plan Acute on chronic hypoxic respiratory failure: Oxygen by nasal cannula, ABG normal Acute COPD exacerbation: Albuterol Atrovent Solu-Medrol, consult for pulmonology Dr. Sandy appreciated Possible community-acquired aspiration pneumonia: Doxycycline Levaquin Possible CHF exacerbation with BNP in the range of 500: Echocardiogram 55 percent ejection fraction consult for painter helper sign Dr. Thayer appreciated ELIZABET on CKD: John cath in place and patient getting dialysis today, kidney function slowly improving, patient and his power of employment attorney brother Josh who is at bedside does not want any tunneled dialysis cath placed and wants to be discharged home today to take him to [facility]. They do not want any further treatment Vancomycin induced nephrotoxicity vanco levels were 17.5, avoid nephrotoxic medications Dementia History of CVA with left-sided hemiplegia Multiple unstageable decubitus ulcer of the sacrum: Wound consult Hypothyroidism Elevated D-dimer 2.57 DVT ruled out PE ruled out Condition guarded Moderate malnutrition History of prolonged hospitalization for three-month at [place] recently Superficial excoriation of the left hand: Bactroban ointment Time spent 65 minutes Patient is full code General condition poor Plan discussed with: Patient Date of Service: Aug 03, 2024 Billing Provider: KATLYN GUTIERREZ MD Common Visit Codes: [id number] INP/OBS CARE(HIGH) KATLYN GUTIERREZ MD Aug 03, 2024 10:14
--- NOTE | 2024-08-03 10:19 | DVHDS2 ---
Discharge Summary Date of Admission Jul 24, 2024 at 23:12 Date of Discharge: Aug 03, 2024 Admitting Diagnosis Shortness of breaths Wounds: Hemodialysis Labs/Diagnostic Data: Laboratory Results Test 08/03/24 05:00 07/30/24 05:26 07/28/24 05:20 07/27/24 15:00 White Blood Count 9.5 10^3/uL (4.4-10.8) Red Blood Count 2.44 10^6/uL (4.5-5.90) Hemoglobin 7.6 g/dL (13.5-17.5) Hematocrit 22.0 % (41.0-53.0) Mean Corpuscular Volume 90.4 fL (80.0-100.0) Mean Corpuscular Hemoglobin 31.0 pg (28.0-32.0) Mean Corpuscular Hemoglobin Concent 34.3 g/dL (32.0-36.0) Red Cell Distribution Width 17.3 % (11.8-14.3) Platelet Count 147 10^3/uL (140-450) Mean Platelet Volume 8.9 fL (6.9-10.8) Neutrophils (%) (Auto) 76.0 % (37.0-80.0) Lymphocytes (%) (Auto) 13.8 % (10.0-50.0) Monocytes (%) (Auto) 9.8 % (0.0-12.0) Eosinophils (%) (Auto) 0.2 % (0.0-7.0) Basophils (%) (Auto) 0.2 % (0.0-2.0) Neutrophils # (Auto) 7.2 10 ^3/uL (1.6-8.6) Lymphocytes # (Auto) 1.3 10 ^3/uL (0.4-5.4) Monocytes # (Auto) 0.9 10 ^3/uL (0-1.3) Eosinophils # (Auto) 0 10 ^3/uL (0-0.8) Basophils # (Auto) 0 10 ^3/uL (0-0.2) Nucleated Red Blood Cells 0.2 % Sodium Level 138 mmol/L (136-145) Potassium Level 4.3 mmol/L (3.5-5.1) Chloride Level 102 mmol/L (98-107) Carbon Dioxide Level 22 mmol/L (20-31) Anion Gap 14 (5-15) Blood Urea Nitrogen 70 mg/dL (9-23) Creatinine 7.77 mg/dL (0.700-1.30) Glomerular Filtration Rate Calc 6 mL/min (>90) BUN/Creatinine Ratio 9.0 (10.0-20.0) Serum Glucose 78 mg/dL (74-106) Calcium Level 7.8 mg/dL (8.7-10.4) Total Bilirubin 0.4 mg/dL (0.2-1.0) Aspartate Amino Transferase (AST) 27 U/L (13-40) Alanine Aminotransferase (ALT) 22 U/L (7-40) Alkaline Phosphatase 79 U/L (46-116) Total Protein 4.4 g/dL (5.7-8.2) Albumin 2.4 g/dL (3.2-4.8) POC Glucose 111 mg/dl (70-106) Hepatitis A IgM Antibody Negative Hepatitis B Surface Antigen Negative (Negative) Hepatitis B Core IgM Antibody Negative Hepatitis C Antibody Negative (Negative) Random Vancomycin Level 15.5 ug/mL (5-10) Test 07/26/24 14:19 07/26/24 10:30 07/26/24 02:29 07/25/24 05:03 Urine Color Light-orange (Yellow) Urine Clarity Ex.turbid (Clear) Urine pH 5.5 (5.0-9.0) Urine Specific [place] 1.027 (1.001-1.035) Urine Protein 3+ (Negative) Urine Ketones Trace (Negative) Urine Blood 2+ /uL (Negative) Urine Nitrite Negative (Negative) Urine Bilirubin Negative (Negative) Urine Urobilinogen Normal mg/dL (Negative) Urine Leukocyte Esterase Negative /uL (Negative) Urine RBC 93 /hpf (0 - 3) Urine WBC 22 /hpf (0 - 3) Urine WBC Clumps Present /hpf (None Seen) Urine Squamous Epithelial Cells None seen /hpf (<5) Urine Amorphous Crystals Few /hpf (None Seen) Urine Bacteria Few /hpf (None Seen) Urine Mucus Few (None Seen) Urine Osmolality 342 mOsm/kg Urine Creatinine 129.65 mg/dL (30.0-125.0) Urine Sodium 22 mmol/L (40-220) Urine Potassium 67 mmol/L (12-62) Urine Glucose Trace mg/dL (Normal) Urine Total Protein 412.8 mg/dL (1-14) Urine Opiates Screen Pos (NEGATIVE) Urine Fentanyl Screen Neg (NEGATIVE) Urine Barbiturates Screen Neg (NEGATIVE) Urine Phencyclidine Screen Neg (NEGATIVE) Urine Amphetamines Screen Neg (NEGATIVE) Urine Benzodiazepines Screen Neg (NEGATIVE) Urine Cocaine Screen Neg (NEGATIVE) Urine Cannabinoids Screen Neg (NEGATIVE) Influenza Type A Antigen Negative (Negative) Influenza Type B Antigen Negative (Negative) SARS-CoV-2 Antigen (Rapid) Negative (NEGATIVE) Differential Total Cells Counted 100.0 (100) Neutrophils % (Manual) 98 (37.0-80.0) Band Neutrophils % (Manual) 0 Lymphocytes % (Manual) 1 (10.0-50.0) Monocytes % (Manual) 1 (0-12) Eosinophils % (Manual) 0 (0-7) Basophils % (Manual) 0 (0.0-2.0) Metamyelocytes % (manual) 0 Myelocytes % (Manual) 0 Promyelocytes % (Manual) 0 Blast Cells % (Manual) 0 Reactive Lymphocytes 0 Platelet Estimate Adequate Anisocytosis (manual) Slight D-Dimer, Quantitative 2.57 mg/L FEU (0.0-0.49) Hemoglobin A1c 5.1 % A1C (<5.7) Test 07/25/24 05:00 07/24/24 21:08 07/24/24 20:23 07/24/24 20:10 Phosphorus Level 5.7 mg/dL (2.4-5.1) Magnesium Level 2.3 mg/dL (1.6-2.6) Vitamin B12 Level 775 pg/mL (211-911) Vitamin D 25-Hydroxy 47.1 ng/mL (30.0-100) Free Thyroxine (T4) Calculated 0.98 ng/dL (0.89-1.76) Free Triiodothyronine (T3) pg/mL 1.47 pg/mL (2.3-4.2) Troponin I High Sensitivity 8 ng/L (</=54) Blood Gas Specimen Type Arterial Blood Gas Sample Site Right radial Blood Gas Patient Temperature 37.0 Arterial Blood Date Drawn Arterial Blood pH 7.433 (7.350-7.450) Arterial Blood Partial Pressure CO2 25.0 mmHg (35.0-48.0) Arterial Blood Partial Pressure O2 91.5 mmHg (83.0-108.0) Arterial Blood HCO3 16.3 mmol/L (21.0-28.0) Arterial Blood Oxygen Saturation 97.1 % (94.0-98.0) Arterial Blood Base Excess -6.7 mmol/L (-2.0-3.0) Arterial Blood Oxyhemoglobin 96.1 % (94.0-98.0) Arterial Blood Carboxyhemoglobin 0.4 % (0.5-1.5) Arterial Blood Methemoglobin 0.6 % (0.0-1.5) Garry Test Yes Blood Gas Total Hemoglobin 9.90 g/dL (13.5-17.5) Blood Gas Liter Flow 3.00 Blood Gas Modality Nasal cannula FiO2 % 32.0 Prothrombin Time 11.5 sec (9.3-11.8) Prothrombin Time INR 1.09 (0.9-1.15) Activated Partial Thromboplast Time 33.0 SEC (24.5-34.5) Lactic Acid Level 1.0 mmol/L (0.4-2.0) B-Type Natriuretic Peptide 497.64 pg/mL (0-100) Other Laboratory Tests 08/03/24 05:00 Brief Hx & Hospital Course: Patient came from the half-way admitted for shortness of breaths found to have acute hypoxic respiratory failure and COPD exacerbation seen by pulmonology Dr. Sandy patient also had CHF exacerbation ejection fraction 55 percent seen by web feeder. patient developed acute kidney injury possibly secondary to vancomycin toxicity received hemodialysis . History of CVA with left hemiplegia and dementia. Patient did not improve and gradually deteriorating. The patient's brother Josh who is at the bedside as power of heavy mobile equipment operator and I discussed with the patient and his brother and they want to stop any further treatment the brother wants him to drive to [place] and to live there. He is fully aware life expectancy is very short without dialysis. The brother also refused hospice services and he says he and his son can not take care of him anymore Consults/Reason for consult Pulmonology Dr. Sandy Nephrology Operations or Procedures Hemodialysis Condition at Discharge: Poor Final Diagnosis/Problems List Acute on chronic hypoxic respiratory failure: Oxygen by nasal cannula, ABG normal Acute COPD exacerbation: Albuterol Atrovent Solu-Medrol, consult for pulmonology Dr. Sandy appreciated Possible community-acquired aspiration pneumonia: Doxycycline Levaquin Possible CHF exacerbation with BNP in the range of 500: Echocardiogram 55 percent ejection fraction consult for web feeder Dr. Thayer appreciated ELIZABET on CKD: John cath in place and patient getting dialysis today, kidney function slowly improving, patient and his power of heavy mobile equipment operator brother Josh who is at bedside does not want any tunneled dialysis cath placed and wants to be discharged home today to take him to [facility]. They do not want any further treatment Vancomycin induced nephrotoxicity vanco levels were 17.5, avoid nephrotoxic medications Dementia History of CVA with left-sided hemiplegia Multiple unstageable decubitus ulcer of the sacrum: Wound consult Hypothyroidism Elevated D-dimer 2.57 DVT ruled out PE ruled out Discharge Disposition: Home Discharge Instruct/Medications Diet: Renal Activity: Light activity Follow Up/Referral: Follow up with primary doctor Medications: None Family does not want any further treatment They also refused hospice 39 (Time taken for discharge summary 39 minutes) Discharge Statement: "Patient was advised to return to the ER or call 911 if any headaches, dizziness, shortness of breath, chest pain, abdominal pain, bleeding, fevers, or worsening of medical condition. Patient was counseled about treatment plan, medications, possible side effects, patientverbalized understanding. All questions were answered to the best of my ability. This discharge took greater then 30 minutes in planning, reviewing documentation, counseling the patient, and discussing with other team members." ASSESSMENT ASSESSMENT Hospital Course Significant deterioration of the health Assessment Acute on chronic hypoxic respiratory failure: Oxygen by nasal cannula, ABG normal Acute COPD exacerbation: Albuterol Atrovent Solu-Medrol, consult for pulmonology Dr. Sandy appreciated Possible community-acquired aspiration pneumonia: Doxycycline Levaquin Possible CHF exacerbation with BNP in the range of 500: Echocardiogram 55 percent ejection fraction consult for web feeder Dr. Thayer appreciated ELIZABET on CKD: John cath in place and patient getting dialysis today, kidney function slowly improving, patient and his power of heavy mobile equipment operator brother Josh who is at bedside does not want any tunneled dialysis cath placed and wants to be discharged home today to take him to [facility]. They do not want any further treatment Vancomycin induced nephrotoxicity vanco levels were 17.5, avoid nephrotoxic medications Dementia History of CVA with left-sided hemiplegia Multiple unstageable decubitus ulcer of the sacrum: Wound consult Hypothyroidism Elevated D-dimer 2.57 DVT ruled out PE ruled out Date of Service: Aug 03, 2024 Billing Provider: KATLYN GUTIERREZ MD Common Visit Codes: [id number] DISCH DAY >30min KATLYN GUTIERREZ MD Aug 03, 2024 10:19
--- NOTE | 2024-08-03 11:09 | DVHPN2 ---
Progress Note Date Seen: Aug 03, 2024 Resident Creating Document: ALFRED OLGUIN RESIDENT Medical Necessity Reason Pt with a Central, PICC or Fol: Yes The following are medically ne: White Catheter Reason for white catheter: Strict I&O Subjective Review of Systems Patient seen and examined at bedside. Patient is receiving dialysis. Plan for 3 L ultrafilter. Objective vital signs Vital Sign Date Time Temp Pulse Resp B/P (MAP) Pulse Ox O2 Delivery O2 Flow Rate FiO2 08/03/24 09:00 67 18 127/50 (75) 96 08/03/24 06:01 Nasal Cannula* 2 28 08/03/24 04:30 97.9 97.9 Total Intake and Output 08/02/24 08/02/24 08/03/24 15:00 23:00 07:00 Intake Total 340 ml 350 ml Output Total 50 ml 40 ml Balance 290 ml 310 ml medications Current Medications Medications Dose Ordered Sig/Alo Route Start Time Stop Time Status Last Admin Dose Admin Sodium Chloride 10 ml Q8HR IV 07/25/24 06:00 08/03/24 05:54 10 ML Ondansetron HCl 4 mg Q4HP PRN IV 07/24/24 23:15 07/25/24 02:14 4 MG Nitroglycerin 0.4 mg Q5MINP PRN SL 07/24/24 23:15 Levofloxacin/ Dextrose 100 ml @ 66.667 mls/ hr EOD IV 07/26/24 10:00 08/01/24 17:28 66.667 MLS/HR Levothyroxine Sodium 100 mcg DAILY PO 07/25/24 10:00 08/02/24 11:42 100 MCG Albuterol 2.5 mg Q4HR NEB 07/25/24 02:00 08/03/24 06:01 2.5 MG Ipratropium [place] 0.5 mg Q4HR NEB 07/25/24 02:00 08/03/24 06:01 0.5 MG Heparin Sodium (Porcine) 5,000 units Q12HR SC 07/25/24 10:00 08/02/24 11:45 5,000 UNITS Atorvastatin Calcium 20 mg HS PO 07/27/24 22:00 08/01/24 22:15 20 MG Metronidazole 100 ml @ 100 mls/hr Q8HR IV 07/27/24 22:00 08/03/24 05:44 100 MLS/HR Vancomycin HCl 125 mg QID PO 07/27/24 18:00 08/02/24 17:46 125 MG Furosemide 80 mg BIDD IV 07/27/24 18:00 08/03/24 05:54 80 MG Clonidine HCl 0.2 mg Q6HP PRN PO 07/30/24 14:15 08/02/24 16:55 0.2 MG Zirconium Oxide 10 gm TID PO 07/31/24 08:47 08/02/24 05:37 10 GM Patient Own Medication 1 BID EACHEYE 07/31/24 13:00 08/02/24 11:43 1 Examination General Appearance: Cooperative. Well developed. Well nourished. NAD Head Exam: Normal inspection Neck Exam: Normal inspection. Non-tender. Normal alignment Pulmonary/Respiratory: Chest non-tender. Clear bilateral breath sounds Cardiovascular/Chest: Regular rate and rhythm. No murmurs. No JVD. Peripheral Pulses: 2+ Radial (R). 2+ Radial (L). 2+ Pedal (R). 2+ Pedal (L) Abdominal Exam: Normal bowel sounds. Soft. Nontender. No hepatospenomegaly. No masses Ankle Exam: Negative ankle edema Lower extremities: Negative lower extremity edema Neuro/Mental Status: A&O x4. Coherent laboratory and microbiology Laboratory Tests 08/03/24 05:00 Test 08/03/24 05:00 Range/Units Serum Glucose 78 74-106 mg/dL Microbiology Date/Time Source Procedure Growth Status 07/26/24 11:30 Stool Clostridium difficile Toxin Assay - Final Complete 07/26/24 02:28 Nose MRSA Screen - Final Complete Problem List/Assessment/Plan Problem List/Assessment/Plan ELIZABET with ATN likely due to suspected vancomycin toxicity needing HD CKD stage 3 Diabetes mellitus type 2 Dementia History of CVA with left-sided hemiplegia Decubitus ulcer of sacrum Community-acquired pneumonia C diff infection Plan/recommendation Plan discussed with Dr Ireland. -Underwent dialysis today. -Avoid further nephrotoxic drugs -Recommend ID consultation given multiple antibiotic use concerning worsening kidney function. -Continue phosphate binder p.o. and sodium zirconium 10 mg p.o. daily. -Strict I and O -Ultrasound of the kidney shows nonobstructing kidney stone -Echo:Normal left ventricular systolic function estimated ejection fraction 55%. There is a grade 1 diastolic dysfunction. -family and patient denying all care, patient and family does not want any hemodialysis anymore, patient has been discharged by hospitalist team, patient also denied for hospice care. -patient refused for insertion of tunnel dialysis catheter and to undergone furthermore dialysis at home as well. Plan discussed with: Patient, Other (RN) Dietary Evaluation Review Comments: 1) Consider EN nutrition Jevity 1.2 @ 60 ml/hr goal rate 2) Advance pt diet when medically feasible to a Cardiac diet, modified per DRILLING SUPERINTENDENT recommendations 3) If pt remains NPO >7 days consider TPN to meet at least 75% of estimated needs 4) Continue current plan of care Expected Outcomes/Goals: 1) Pt to receive adequate nutrition support 2) Pt diet to advance 3) F/U in 2-3 days ALFRED OLGUIN RESIDENT Aug 03, 2024 11:09
[2024-08-03] MEDS: SODIUM CHL 0.9% 1000 ML BAG XX ONE (16:17)
--- NOTE | 2024-08-03 21:03 | DVHPN2 ---
Progress Note - Dictate Date Seen: Aug 03, 2024 Medical Necessity Reason Pt with a Central, PICC or Fol: Yes The following are medically ne: White Catheter Reason for white catheter: Strict I&O Subjective Patient seen and examined at bedside. Remains on supplemental oxygen Overnight events reviewed vital signs Vital Sign Date Time Temp Pulse Resp B/P (MAP) Pulse Ox O2 Delivery O2 Flow Rate FiO2 08/03/24 18:06 77 18 100 08/03/24 18:00 Nasal Cannula 2.0 08/03/24 18:00 28 08/03/24 17:00 97.9 156/64 (94) 97.9 Total Intake and Output 08/02/24 08/02/24 08/03/24 15:00 23:00 07:00 Intake Total 340 ml 350 ml Output Total 50 ml 40 ml Balance 290 ml 310 ml objective Gen.: Patient lying in bed in no apparent distress. On supplemental oxygen Head: Normocephalic, atraumatic. Eyes: EOMI/PERRLA. Ears: Normal hearing. Normal anatomy. Neck/trachea: Trachea midline, supple. Nose: Normal external anatomy. Mouth: Moist mucous membranes. Chest: Decreased air entry bilaterally. Coarse breath sounds. No wheezing. No rhonchi. Cardiovascular: Positive S1, positive S2. Regular rate and rhythm. Abdomen: Positive bowel sounds in all 4 quadrants. Soft, non-tender, non- distended. : Deferred. Rectal: Deferred. Skin: Warm, dry. Intact. Extremities: 2+ radial pulses bilaterally. No lower extremity edema. Neuro: Awake, alert, oriented x3. No gross motor or sensory deficits. Cranial nerves II through XII intact. Gait not assessed. laboratory and microbiology Laboratory Tests 08/03/24 05:00 Test 08/03/24 05:00 Range/Units Serum Glucose 78 74-106 mg/dL Assessment/Plan Impression: Acute on chronic hypoxic respiratory failure secondary to acute exacerbation COPD Acute exacerbation of COPD Aspiration pneumonia Acute exacerbation of CHF Acute kidney injury on chronic kidney disease History of CVA with left-sided weakness Dementia with possible aspiration Unstageable decubitus ulcer History of hypothyroidism Pleural effusion Atelectasis Anemia Metabolic acidosis Events: Remains on supplemental oxygen On 1 LPM via NC Taper O2 as tolerated Improving O2 requirements Continue bronchodilators Continue antibiotics - Levaquin, Flagyl, vancomycin PO. Incentive spirometry Note, pt is refusing medications. Diurese w/ Lasix 80 mg IV BID. Monitor renal function Monitor electrolytes. Supplement as necessary. White - monitor ins and outs Hemodialysis per Nephrology Head of bed elevation Aspiration precautions Wound care Patient is stable for discharge from the pulmonary standpoint. Poor prognosis due to age and comorbidities. Labs and imaging reviewed. Rest of plan as noted below. Plan: Ultrasound venous Doppler bilateral lower extremities: No lower extremity DVT. Ventilation perfusion scan showed low probability of pulmonary embolism. Chest x-ray imaging report reviewed: Trace bilateral pleural effusions. Atelectasis Limited chest ultrasound showed not enough fluid to drain - trace to small left pleural effusion. Supplemental oxygen Keep O2 saturation above 92% IV steroids - completed course Bronchodilators IV antibiotics. Monitor Hgb Keep above 7.0 g/dL Diurese to euvolemia Monitor ins/outs. Monitor renal function. Monitor electrolytes Supplement as necessary. DVT prophylaxis-Heparin s.c. Prognosis: Poor given multiple comorbidities. Rest of plan per hospitalist and other consultants. Thank you Dr. Zay Diaz for allowing me to participate in this patient's care. Further recommendations will depend on patient's clinical course. Please do not hesitate to contact me if you have any questions or concerns. This medical document was created using an electronic medical record system with [employer] computerized dictation system. Although this document has been carefully reviewed, there may still be some phonetic and typographical errors. These areas are purely typographical due to imperfections of the software programs, and do not reflect any compromise in the patient's medical care. Dietary Evaluation Review Comments: 1) Consider EN nutrition Jevity 1.2 @ 60 ml/hr goal rate 2) Advance pt diet when medically feasible to a Cardiac diet, modified per PROCESS MACHINE OPERATOR recommendations 3) If pt remains NPO >7 days consider TPN to meet at least 75% of estimated needs 4) Continue current plan of care Expected Outcomes/Goals: 1) Pt to receive adequate nutrition support 2) Pt diet to advance 3) F/U in 2-3 days Plan discussed with: Patient, Other (RN Marek) TIFFANIE JIM MD Aug 03, 2024 21:03
== END 2024-08-03 18:58 | disposition home or self-care (01) | DRG 177 ==
LOC: ER 19:49 → EDBD 19:49 → EDUNIT# 19:49 → OVERFLOW 23:12 → EAST 07-25 22:54
PROVIDERS: ADMIT Internal Medicine; ATTEND Family Medicine
PROC: 05HB33Z Insertion of Infusion Device into Right Basilic Vein, Percutaneous Approach (ICD-10-PCS; 2024-07-27)
PROC: B54MZZA Ultrasonography of Right Upper Extremity Veins, Guidance (ICD-10-PCS; 2024-07-27)
PROC: 05HM33Z Insertion of Infusion Device into Right Internal Jugular Vein, Percutaneous Approach (ICD-10-PCS; principal; 2024-07-28)
PROC: 5A1D70Z Performance of Urinary Filtration, Intermittent, Less than 6 Hours Per Day (ICD-10-PCS; 2024-07-28)
PROC: 5A1D70Z Performance of Urinary Filtration, Intermittent, Less than 6 Hours Per Day (ICD-10-PCS; 2024-07-28)
PROC: 02HV33Z Insertion of Infusion Device into Superior Vena Cava, Percutaneous Approach (ICD-10-PCS; 2024-07-30)
PROC: B548ZZA Ultrasonography of Superior Vena Cava, Guidance (ICD-10-PCS; 2024-07-30)
PROC: 5A1D70Z Performance of Urinary Filtration, Intermittent, Less than 6 Hours Per Day (ICD-10-PCS; 2024-07-31)
PROC: 5A1D70Z Performance of Urinary Filtration, Intermittent, Less than 6 Hours Per Day (ICD-10-PCS; 2024-08-01)
DX: J15.69 Pneumonia due to other Gram-negative bacteria (principal); J96.21 Acute and chronic respiratory failure with hypoxia; N17.0 Acute kidney failure with tubular necrosis; E44.0 Moderate protein-calorie malnutrition; E87.20 Acidosis, unspecified; I13.0 Hypertensive heart and chronic kidney disease with heart failure and stage 1 through stage 4 chronic kidney disease, or unspecified chronic kidney disease; J44.1 Chronic obstructive pulmonary disease with (acute) exacerbation; J98.11 Atelectasis; I69.354 Hemiplegia and hemiparesis following cerebral infarction affecting left non-dominant side; A04.72 Enterocolitis due to Clostridium difficile, not specified as recurrent; J15.9 Unspecified bacterial pneumonia; Z20.822 Contact with and (suspected) exposure to COVID-19; D64.9 Anemia, unspecified; E03.9 Hypothyroidism, unspecified; E11.22 Type 2 diabetes mellitus with diabetic chronic kidney disease; F03.90 Unspecified dementia, unspecified severity, without behavioral disturbance, psychotic disturbance, mood disturbance, and anxiety; L89.150 Pressure ulcer of sacral region, unstageable; I49.1 Atrial premature depolarization; N18.30 Chronic kidney disease, stage 3 unspecified; T36.8X5A Adverse effect of other systemic antibiotics, initial encounter; E78.5 Hyperlipidemia, unspecified; E87.5 Hyperkalemia; Z79.82 Long term (current) use of aspirin; Z68.27 Body mass index [BMI] 27.0-27.9, adult; Z99.81 Dependence on supplemental oxygen; I50.9 Heart failure, unspecified
CPT/HCPCS: 36415; 36600; 71045; 76775; 78582; 80048; 80053; 80074; 80202; 80307; 81001; 82306; 82570; 82607; 82805; 82962; 83036; 83605; 83735; 83880; 83935; 84100; 84133; 84156; 84300; 84439; 84481; 84484; 85007; 85025; 85027; 85379; 85610; 85730; 87081; 87426; 87493; 87804; 90935; 92507; 92610; 93005; 93306; 93970; 93971; 94640; 94668; 97110; 97116; 97163; 97530; 99291; G0378; J1642; J1815; J1956; J2405; J3490